=== PATIENT | female | born 1935 | race Caucasian/White ===

== ENCOUNTER 2017-11-20 05:48 | Day surgery (SDC) | payer MEDICARE ==
[2017-11-20] MEDS ORDERED: DIPRIVAN 200 MG/20 ML IV ONE (05:49)
[2017-11-20] MEDS ORDERED: Ketamine HCl 50 MG/ML IJ ONE (05:49)
[2017-11-20] MEDS ORDERED: Sodium Chloride 0.9% 1000 ML 1,000 ML IV SCH (06:00)
[2017-11-20] MEDS ORDERED: Sodium Chloride 0.9% 1000 ML 1,000 ML ONE (06:11)
[2017-11-20] MEDS ORDERED: Lactated Ringers 1,000 ML IV SCH (06:30)
[2017-11-20 08:38] VITALS: BP 185/92; PULSE 75; O2SAT 98
--- NOTE | 2017-11-20 14:38 | OP ---
SURGERY DATE/TIME: 11/20/2017 0725 PREOPERATIVE DIAGNOSIS: Screening exam. POSTOPERATIVE DIAGNOSIS: Sigmoid diverticulosis otherwise normal colon. PROCEDURE: Colonoscopy. SURGEON: Dr. Ballesteros. ANESTHESIA: MAC. Medications given by anesthesia department. HISTORY: The patient is an 82 year-old white female presenting now for screening colonoscopy. She reports it has been 15 years since her previous examination and that she does have a family history of first degree relative with colon cancer. The patient was felt the need to have endoscopic evaluation. She was appraised of the risks of the procedure including the risk of perforation, phlebitis, untoward reaction to medication, bleeding and missed lesions. The patient verbalized her understanding and desired to have the procedure performed. DESCRIPTION OF PROCEDURE: The patient was given the medications by the anesthesia department. She had continuous pulse oximetry, ECG monitoring, intermittent blood pressure monitoring and tidal CO2 monitoring during the examination. She was placed in the left lateral decubitus position. A digital rectal examination was performed and revealed normal anal sphincter tone and no masses. The flexible Olympus pediatric colonoscope was used to intubate the rectum. A view of the colon was developed sequentially to the cecum. Upon insertion and withdrawal, including a retroflex view in the rectum, there was noted sigmoid diverticula. No other mucosal lesions were encountered. The scope was removed from the patient who tolerated the procedure well and was sent back to OP recovery in good condition. The prep was noted to be fair.
== END 2017-11-20 08:55 | disposition home or self-care (01) ==
LOC: SDC 05:48
PROVIDERS: ATTEND Family Medicine
PROC: 0DJD8ZZ Inspection of Lower Intestinal Tract, Via Natural or Artificial Opening Endoscopic (ICD-10-PCS; principal; 2017-11-20)
DX: Z12.11 Encounter for screening for malignant neoplasm of colon (principal); K57.30 Diverticulosis of large intestine without perforation or abscess without bleeding; I25.10 Atherosclerotic heart disease of native coronary artery without angina pectoris; E78.5 Hyperlipidemia, unspecified; Z79.899 Other long term (current) drug therapy
CPT/HCPCS: 99100; J2704

== ENCOUNTER 2018-10-12 15:31 | Emergency (ER) | payer MEDICARE ==
--- NOTE | 2018-10-12 16:31 | ERPHSYRPT ---
- History of Present Illness Time Seen by Provider: 10/12/18 16:15 Patient Subjective Stated Complaint: WAS GOING DOWN STEPS AND SLIPPED STRIKING LEFT LOWER LEG ON SOME ROCKS. Triage Nursing Assessment: TO ROOM PER W/C. SKIN W/D, COLOR NORMAL, RESP NONLABORED. LEFT LOWER ANTERIOR LEG HAS ABRASIONS WITH MINIMAL BLEEDING. AREA CLEANED WITH HIBICLENS AND STERILE WATER. Physician History: PATIENT WITH A HISTORY OF CORONARY ARTERY DISEASE, HYPERTENSION, SLIPPED DOWN 2 STEPS STRIKING FOREHEAD AGAINST GROUND, HAS NECK STIFFNESS, BRUSING AND ABRASIONS OVER LEFT MESSINA. DENIES LOSS OF CONSCIOUSNESS, NUMBNESS, TINGLING OR WEAKNESS IN EXTREMITIES IN EXTREMITIES. Occurred: just prior to arrival Reason for Fall: tripped Injuries/Pain Location: head, neck, lower extremity Loss of Consciousness: no loss of consciousness Quality: sharpness Severity of Pain-Max: moderate Severity of Pain-Current: moderate Modifying Factors: Improves With: nothing Associated Symptoms (Fall): denies symptoms Allergies/Adverse Reactions: No Known Drug Allergies Allergy (Verified 10/12/18 16:02) Home Medications: Acetaminophen [Tylenol] 325 mg PO UD 11/15/17 [History] Aspirin 81 mg PO DAILY 11/15/17 [History] Famotidine 20 mg [Pepcid 20 MG] 20 mg PO DAILY 11/15/17 [History] Fexofenadine HCl [Frances] 180 mg PO DAILY 11/15/17 [History] Meclizine HCl 25 mg [Antivert 25 mg] 25 mg PO UD 11/15/17 [History] Metoprolol Succinate 25 mg PO HS 11/15/17 [History] Nitroglycerin 1 ea PO UD 11/15/17 [History] [place]-3 Fatty Acids/Fish Oil [Fish Oil 1,000 mg Capsule] 1 each PO DAILY [History] Simvastatin 40 mg [Zocor 40 mg] 40 mg PO HS 11/15/17 [History] Ergocalciferol (Vitamin D2) [Vitamin D] 50,000 unit PO UD 10/12/18 [History] Hx Tetanus, Diphtheria Vaccination/Date Given: No Hx Influenza Vaccination/Date Given: Yes Hx Pneumococcal Vaccination/Date Given: Yes - Review of Systems Constitutional: No Fever, No Chills Eyes: No Symptoms Ears, Nose, & Throat: No Symptoms Respiratory: No Symptoms, No Cough, No Dyspnea Cardiac: No Symptoms, No Chest Pain, No Edema, No Syncope Abdominal/Gastrointestinal: No Symptoms, No Abdominal Pain, No Nausea, No Vomiting, No Diarrhea Genitourinary Symptoms: No Symptoms, No Dysuria Musculoskeletal: Injury, No Back Pain, No Neck Pain Skin: No Rash Neurological: Headache, No Dizziness, No Focal Weakness, No Sensory Changes Psychological: No Symptoms Endocrine: No Symptoms All Other Systems: Reviewed and Negative - Past Medical History Pertinent Past Medical History: Yes Neurological History: No Pertinent History ENT History: No Pertinent History Cardiac History: Coronary Artery Disease, High Cholesterol, Hypertension Respiratory History: Bronchitis, Other Endocrine Medical History: No Pertinent History Musculoskeletal History: Arthritis GI Medical History: GERD History: Renal Disease Psycho-Social History: Anxiety Female Reproductive Disorders: No Pertinent History Other Medical History: 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 hx: irregular heart rate. recent sinus drainage, hx allergies - Past Surgical History Past Surgical History: Yes Neuro Surgical History: No Pertinent History Cardiac: Cardiac Catheterization, Cardiac Stent Respiratory: No Pertinent History Gastrointestinal: Appendectomy, Cholecystectomy Genitourinary: No Pertinent History Musculoskeletal: No Pertinent History Female Surgical History: Dilation & Curettage Other Surgical History: lbil. eye surgery cataract removal w/ lens placed, facial lesion removed ( benign). 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 - Social History Smoking Status: Never smoker Exposure to second hand smoke: No Drug Use: none Patient Lives Alone: No - Female History Hx Now: No - Nursing Vital Signs Nursing Vital Signs: Initial Vital Signs Temperature 97.9 F 10/12/18 15:56 Pulse Rate 58 L 10/12/18 15:56 Respiratory Rate 16 10/12/18 15:56 Blood Pressure 176/88 10/12/18 15:56 O2 Sat by Pulse Oximetry 97 10/12/18 15:56 Pain Scale Pain Intensity 2 - [place] Coma Score Best Eye Response (Antoni): (4) open spontaneously Best Verbal Response (Antoni): (5) oriented Best Motor Response (Antoni): (6) obeys commands Antoni Total: 15 - Physical Exam General Appearance: no apparent distress, alert, other (RIGID CERVICAL COLLAR APPLIED UPON ARRIVAL) Head Injury: tenderness (MID FOREHEAD, MININAL SWELLING) Eye Exam: PERRL/EOMI ENT Exam: airway nml Neck Exam: normal inspection, tenderness (POSTERIOR CERVICAL ) Respiratory/Chest Exam: normal breath sounds, No chest tenderness, No respiratory distress Cardiovascular Exam: normal heart sounds, regular rate/rhythm Gastrointestinal Exam: soft, No tenderness, No distention, No guarding, No ecchymosis Back Exam: normal inspection, No vertebral tenderness Extremity Exam: normal range of motion, pelvis stable, swelling (WITH ECCHYMOSIS PROXIMAL TO DISTAL 3RD MESSINA WITH SUPERFICIAL LACERATION 2.5 CM PROXIMAL ASPECT, ABRASIONS MIDLINE, NO CREPITUS. FULL RANGE OF MOTION LEFT KNEE AND ANKLE, NONTENDER, NO SWELLING. FULL RANGE OF MOTION BILAT HIPS WITHOUT PAIN.), No deformities Peripheral Pulses: carotid (R): 2+, carotid (L): 2+, femoral (R): 2+, femoral (L ): 2+, dorsalis-pedis (R): 2+, dorsalis-pedis (L): 2+ Neurologic Exam: alert, oriented x 3, cooperative, sensation nml, No motor deficits Skin Exam: normal color, warm, dry SpO2 Interpretation: normal SpO2: 97 Procedures - Laceration/Wound Repair Left Other Wound Location: Left, lower leg Wound Length (cm): 2.5 Wound's Depth, Shape: linear, irregular Wound Explored: clean Irrigated: Yes Hibiclens Prep: Yes Anesthesia: local, 2% Lidocaine Volume Anesthetic (ccs): 5 Wound Debrided: minimal Wound Repaired With: sutures Suture Size/Type: 4-0, ethilon Number of Sutures: 5 Sterile Dressing Applied?: Yes Ordered Tests: Active Orders 24 hr Category Date Time Status Cervical Collar Application STAT Care 10/12/18 16:31 Active CERVICAL SPINE WO CONTRAST [CT] Stat Exams 10/12/18 16:14 Taken HEAD WITHOUT CONTRAST [CT] Stat Exams 10/12/18 16:15 Taken LOWER LEG Stat Exams 10/12/18 16:16 Taken Medication Summary Discontinued Medications Generic Name Dose Route Start Last Admin Trade Name Freq PRN Reason Stop Dose Admin Hydrocodone Bitart/Acetaminophen 1 tab 10/12/18 16:47 10/12/18 16:52 [place] 5/325 Mg PO 10/12/18 16:48 1 tab STAT ONE Administration Hydrocodone Bitart/Acetaminophen Confirm 10/12/18 16:51 [place] 5/325 Mg Administered 10/12/18 16:52 Dose 1 tab .ROUTE .STK-MED ONE Clonidine Confirm 10/12/18 18:06 [place] 0.1 Mg Administered 10/12/18 18:07 Dose 0.1 mg .ROUTE .STK-MED ONE Clonidine 0.1 mg 10/12/18 18:10 10/12/18 18:11 [place] 0.1 Mg PO 10/12/18 18:11 0.1 mg STAT ONE Administration Diphtheria/Tetanus/Acell Pertussis 0.5 ml 10/12/18 17:51 10/12/18 17:55 Adacel Vial IM 10/12/18 17:52 0.5 ml .ONCE ONE Administration Diphtheria/Tetanus/Acell Pertussis Confirm 10/12/18 17:52 Adacel Vial Administered 10/12/18 17:53 Dose 0.5 ml IM .STK-MED ONE - Progress Progress Note: 10/12/18 17:47 [place] 5/325 ORALLY Counseled pt/family regarding: diagnosis, need for follow-up - Departure Time of Disposition: 18:50 Departure Disposition: Home Clinical Impression: FOREHEAD CONTUSION, CERVICAL STRAIN, LEFT MESSINA LACERATION/CONTUSIONS, HYPERTENSION Condition: Stable Critical Care Time: No Referrals: NATIVIDAD THURSTON [Primary Care Provider] - Additional Instructions: [place] 5/325 EVERY 8 HOURS FOR PAIN NEEDED. ELEVATE FOOT HIGHER THAN WAIST AND APPLY ICE OVER MESSINA SWELLING EVERY 4 HOURS, 30 MINUTES FOR 48 HOURS. BEGIN ANTIBIOTIC LEVAQUIN 500MG AFTER FINISHING PRESENT ANTIBIOTIC. HAVE STITCHES REMOVED AT 10 DAYS. WATCH FOR SIGNS OR INFECTION, REDNESS, SWELLING OR DRAINAGE. CLEANSE WOUNDS WITH SOAP AND WATER TWICE DAILY. NORVASC 5 MG DAILY EACH MORNING. TAKE ADDITIONAL DOSE OF NORVASC TONIGHT WITH METOPROLOL, AND CONSULT YOUR PRIMARY CARE PROVIDE FOR EVALUATION OF YOUR BLOOD PRESSURE. Prescriptions: Hydrocodone/APAP 5-325 Tab^^^ [[place] 5-325 Tablet^^^] 1 tab PO Q8HPRN PRN #8 tablet MDD 6 PRN Reason: Pain Amlodipine Besylate 5 mg [Norvasc 5 mg] 5 mg PO DAILY #30 tablet Levofloxacin [Levaquin] 500 mg PO DAILY #10 tablet
[2018-10-12] MEDS ORDERED: NORCO 5/325 MG PO ONE (16:47)
[2018-10-12] MEDS ORDERED: NORCO 5/325 MG ONE (16:51)
[2018-10-12] MEDS ORDERED: Adacel Vial IM ONE ×2 (17:51→17:52)
[2018-10-12] MEDS ORDERED: Catapres 0.1 MG ONE (18:06)
[2018-10-12] MEDS ORDERED: Catapres 0.1 MG PO ONE (18:10)
[2018-10-12 18:44] VITALS: BP 179/78; PULSE 58
[2018-10-12 18:47] VITALS: O2SAT 97
--- NOTE | 2018-10-12 22:34 | XRAY ---
Indication: Pain following fall. Right neck pain. Multiple contiguous axial images obtained through the head without contrast. Comparison: May 15, 2016. Stable age-appropriate global atrophy and mild periventricular degenerative micro-ischemia bilaterally. No acute intracranial hemorrhage, abnormal extra-axial fluid collection, or mass effect. Fourth ventricle is midline without hydrocephalus. Bony calvarium intact. There is mild mucosal thickening of both ethmoid and sphenoid sinuses. Mastoid air cells are clear. Impression: Stable nonacute senile brain. Incidental paranasal sinus disease. CTDI 52.08
--- NOTE | 2018-10-12 22:35 | XRAY ---
Indication: Pain following fall. Right neck pain. Multiple contiguous axial images obtained through the cervical spine. Sagittal and coronal reformatted images obtained. Comparison: None. Axial images negative for acute fracture, suspicious bony lesions, or spinal canal stenosis. Mild/moderate C4-C7 degenerative endplate spurring. Also multilevel bilateral degenerative facet hypertrophy. Sagittal and coronal reformatted images demonstrates normal alignment with C4-C7 disc space narrowing. No acute compression fracture, subluxation, or jumped facet. Normal appearing craniocervical junction. Visualized noncontrasted soft tissues including lung apices unremarkable. Impression: Negative acute fracture/subluxation. Multilevel degenerative changes. CTDI 55.16
--- NOTE | 2018-10-12 22:48 | XRAY ---
Indication: Bruising and swelling following fall. Comparison: None 2 views of the left lower leg negative for acute fracture, dislocation, or suspicious bony lesions. Soft tissues unremarkable.
== END 2018-10-12 18:57 | disposition home or self-care (01) ==
LOC: ED 15:31
DX: S00.93XA Contusion of unspecified part of head, initial encounter (principal); S16.1XXA Strain of muscle, fascia and tendon at neck level, initial encounter; S80.12XA Contusion of left lower leg, initial encounter; S81.812A Laceration without foreign body, left lower leg, initial encounter; I25.10 Atherosclerotic heart disease of native coronary artery without angina pectoris; I10 Essential (primary) hypertension; M43.6 Torticollis; Z79.899 Other long term (current) drug therapy; W10.8XXA Fall (on) (from) other stairs and steps, initial encounter
CPT/HCPCS: 12001; 70450; 72125; 73590; 90471; 90715; 99284; A9270-GY

== ENCOUNTER 2021-07-03 22:46 | Emergency (ER) | payer MEDICARE ==
[2021-07-03] MEDS ORDERED: Sodium Chloride 0.9% 1000 ML 1,000 ML IV SCH (23:30)
[2021-07-03] MEDS ORDERED: Sodium Chloride 0.9% 1000 ML 1,000 ML ONE (23:37)
[2021-07-03 23:39] LABS: Absolute Neutrophil Ct (ANC) 3.37 (1.4-6.9); BASOPHIL % 0.1 % (0.0-0.4); Basophil (Absolute #) 0.01 (0-0.4); Eosinophil % 2.4 % (0.00-5.0); Eosinophil (Absolute #) 0.17 (0-0.5); Hematocrit 40.8 % (35-47); Lymphocyte (Absolute #) 2.88 (1.0-4.6); Lymphocytes % 40.8 % (24.0-44.0); Mean Cell Volume 93.6 fl (78-100); Mean Corpuscular Hemoglobin 29.8 pg (26-32); Mean Corpuscular Hgb Concent. 31.9 g/dl (32-36); Mean Platelet Volume 9.8 fl (7.5-11.0); Monocyte (Absolute #) 0.63 (0.0-1.3); Monocytes % 8.9 % (0.0-12.0); Neutrophil % 47.8 % (36.0-66.0); Platelet Count 270 K/mm3 (150-450); Red Blood Count 4.36 M/mm3 (4.1-5.4); Red Cell Distribution Width 13.7 % (11.5-14.0); White Blood Count 7.1 K/mm3 (4.0-10.5)
[2021-07-03 23:44] LABS: ALBUMIN 4.2 g/dL (3.5-5.0); ANION GAP 14.8 MEQ/L (5-15); BILIRUBIN,TOTAL 0.6 mg/dL (0.2-1.3); EST GLOMERULAR FILTRATION RATE 56.3 ML/MIN; Potassium 3.7 mmol/L (3.5-5.1); Total Protein 7.4 g/dL (6.3-8.2)
--- NOTE | 2021-07-03 23:44 | ERPHSYRPT ---
- History of Present Illness Time Seen by Provider: 07/03/21 23:25 Historian: patient Exam Limitations: no limitations Patient Subjective Stated Complaint: pt states "I had this sharp pain in my stomach that made me get dizzy. But all my life I have had dizziness and passed out." Triage Nursing Assessment: pt came into the er via ambulance; pt is axo x4; c/o abd pain; pt denies pain at this time; pt states that she had severe pain in abd and back tonight; pt states that the pain was so severe that it made her dizzy; pt states that she has hx of lightheadness and dizziness; pt states she had diarrhea 2 days ago; pt denies BM today; pt states that "My daughter made me come in and get checked out."; hyperactive bowel sounds in all quads; tenderness to RLQ; abd is large, round, soft; pt denies vomiting; pt c/o nausea; pt states lower lumber pain; no tenderness to lumber with palpation; clear lung sounds in all lobes; pupils are 2 mm and sluggish; no facial droop present; sinus bradycardia on EKG; 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 The pain was in the epigastric area went through the back she was flushed and felt like she was febrile or burning up. She also became dizzy and felt like she was going to blackout although she did not lose consciousness. She has a long history of fr equent syncopal episodes apparently. Presently she is not dizzy nor is she having any abdominal pain. Timing/Duration: hour(s) (2) Activities at Onset: none Quality: burning, cramping, stabbing Abdominal Pain Onset Location: epigastric Pain Radiation: back Severity of Pain-Max: moderate Severity of Pain-Current: moderate Modifying Factors: Improves With: nothing Associated Symptoms: syncope (Near syncope) Previous symptoms: same symptoms as today Allergies/Adverse Reactions: No Known Drug Allergies Allergy (Verified 07/03/21 22:49) Home Medications: Acetaminophen [Tylenol] 325 mg PO UD 11/15/17 [History] Aspirin 81 mg PO DAILY 11/15/17 [History] Famotidine 20 mg [Pepcid 20 MG] 20 mg PO DAILY 11/15/17 [History] Fexofenadine HCl [Frances] 180 mg PO DAILY 11/15/17 [History] Meclizine HCl 25 mg [Antivert 25 mg] 25 mg PO UD 11/15/17 [History] Metoprolol Succinate 25 mg PO HS 11/15/17 [History] Nitroglycerin 1 ea PO UD 11/15/17 [History] [place]-3 Fatty Acids/Fish Oil [Fish Oil 1,000 mg Capsule] 1 each PO DAILY 11/15/17 [History] Simvastatin 40 mg [Zocor 40 mg] 40 mg PO HS 11/15/17 [History] Ergocalciferol (Vitamin D2) [Vitamin D] 50,000 unit PO UD 10/12/18 [History] Hx Tetanus, Diphtheria Vaccination/Date Given: No Hx Influenza Vaccination/Date Given: No Hx Pneumococcal Vaccination/Date Given: Yes Travel Risk - International Travel Have you traveled outside of the country in past 3 weeks: No - Coronavirus Screening Are you exhibiting any of the following symptoms?: No Close contact with a COVID-19 positive Pt in past 14-21 Days: No - Vaccine Status Have you recieved a Covid-19 vaccination: Yes 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: [employer] - Vaccination Dates Date of 2cond Vaccination (if applicable): 11/15 - Review of Systems Constitutional: No Fever, No Chills Eyes: No Symptoms Ears, Nose, & Throat: No Symptoms Respiratory: No Cough, No Dyspnea Cardiac: No Chest Pain, No Edema, No Syncope Abdominal/Gastrointestinal: Abdominal Pain, No Nausea, No Vomiting, No Diarrhea Genitourinary Symptoms: No Dysuria Musculoskeletal: No Back Pain, No Neck Pain Skin: No Rash Neurological: Vertigo, No Dizziness, No Focal Weakness, No Sensory Changes Psychological: No Symptoms Endocrine: No Symptoms All Other Systems: Reviewed and Negative - Past Medical History Pertinent Past Medical History: Yes Neurological History: No Pertinent History ENT History: No Pertinent History Cardiac History: Coronary Artery Disease, High Cholesterol, Hypertension Respiratory History: Bronchitis, Other Endocrine Medical History: No Pertinent History Musculoskeletal History: Arthritis GI Medical History: GERD History: Renal Disease Psycho-Social History: Anxiety Female Reproductive Disorders: No Pertinent History Other Medical History: 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 hx: irregular heart rate. recent sinus drainage, hx allergies - Past Surgical History Past Surgical History: Yes Neuro Surgical History: No Pertinent History Cardiac: Cardiac Catheterization, Cardiac Stent Respiratory: No Pertinent History Gastrointestinal: Appendectomy, Cholecystectomy Genitourinary: No Pertinent History Musculoskeletal: No Pertinent History Female Surgical History: Dilation & Curettage Other Surgical History: lbil. eye surgery cataract removal w/ lens placed, facial lesion removed ( benign). 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 - Social History Smoking Status: Never smoker Exposure to second hand smoke: Yes Drug Use: none Patient Lives Alone: Yes - Nursing Vital Signs Nursing Vital Signs: Initial Vital Signs Temperature 97.7 F 07/03/21 23:08 Pulse Rate 55 L 07/03/21 23:08 Respiratory Rate 20 07/03/21 23:08 O2 Sat by Pulse Oximetry 97 07/03/21 23:08 Pain Scale Pain Intensity 0 - Physical Exam General Appearance: no apparent distress, alert Eye Exam: PERRL/EOMI, eyes nml inspection Ears, Nose, Throat Exam: normal ENT inspection, pharynx normal, moist mucous membranes Neck Exam: normal inspection, non-tender, supple, full range of motion Respiratory Exam: normal breath sounds, lungs clear, No respiratory distress Cardiovascular Exam: regular rate/rhythm, normal heart sounds Gastrointestinal/Abdomen Exam: soft, No tenderness, No mass Back Exam: normal inspection, normal range of motion, No CVA tenderness, No vertebral tenderness Extremity Exam: normal inspection, normal range of motion, pelvis stable Neurologic Exam: alert, oriented x 3, cooperative, normal mood/affect, nml cerebellar function, sensation nml, No motor deficits Skin Exam: normal color, warm, dry SpO2: 97 - Course EKG Interpreted by Me: RATE (47), Sinus Michael, NORMAL AXIS, NORMAL INTERVALS, NORMAL QRS, NORMAL ST-T - CT Exams Abdomen/Pelvis CT Interpretation: Tele-radiologist Report Head CT Interpretation: Tele-radiologist Report Ordered Tests: Active Orders 24 hr Category Date Time Status EKG-ER Only STAT Care 07/03/21 23:28 Active IV Insertion STAT Care 07/03/21 23:28 Active ABDOMEN AND PELVIS W/0 CONTRAS [CT] Stat Exams 07/03/21 23:29 Taken CHEST 1 VIEW (PORTABLE) Stat Exams 07/03/21 23:29 Taken HEAD WITHOUT CONTRAST [CT] Stat Exams 07/03/21 23:31 Taken AMYLASE Stat Lab 07/03/21 23:15 Completed CBC W DIFF Stat Lab 07/03/21 23:15 Completed CMP Stat Lab 07/03/21 23:15 Completed CULTURE,URINE Stat Lab 07/03/21 23:55 Received LIPASE Stat Lab 07/03/21 23:15 Completed Lactic Acid Stat Lab 07/03/21 23:28 Completed TROPONIN Q3H Lab 07/03/21 23:15 Completed TROPONIN Q3H Lab 07/04/21 01:20 Received TROPONIN Q3H Lab 07/04/21 04:30 Ordered TROPONIN Q3H Lab 07/04/21 07:30 Ordered TROPONIN Q3H Lab 07/04/21 10:30 Ordered UA W/RFX UR CULTURE Stat Lab 07/03/21 23:55 Completed Medication Summary Generic Name Dose Route Start Last Admin Trade Name Freq PRN Reason Stop Dose Admin Sodium Chloride 1,000 mls @ 100 mls/hr 07/03/21 23:30 07/03/21 23:38 Sodium Chloride 0.9% 1000 Ml IV 08/02/21 23:29 100 mls/hr .Q10H HAO Administration Lab/Rad Data: Laboratory Result Diagrams 07/03/21 23:15 07/03/21 23:15 Laboratory Results 07/04/21 07/03/21 07/03/21 Range/Units 00:04 23:55 23:15 WBC (4.0-10.5) K/mm3 RBC (4.1-5.4) M/mm3 Hgb (12.0-16.0) gm/dl Hct (35-47) % MCV (78-100) fl MCH (26-32) pg MCHC (32-36) g/dl RDW (11.5-14.0) % Plt Count (150-450) K/mm3 MPV (7.5-11.0) fl Gran % (36.0-66.0) % Eos # (Auto) (0-0.5) Absolute Lymphs (auto) (1.0-4.6) Absolute Monos (auto) (0.0-1.3) Lymphocytes % (24.0-44.0) % Monocytes % (0.0-12.0) % Eosinophils % (0.00-5.0) % Basophils % (0.0-0.4) % Absolute Granulocytes (1.4-6.9) Basophils # (0-0.4) Sodium (137-145) mmol/L Potassium (3.5-5.1) mmol/L Chloride (98-107) mmol/L Carbon Dioxide (22-30) mmol/L Anion Gap (5-15) MEQ/L BUN (7-17) mg/dL Creatinine (0.52-1.04) mg/dL Estimated GFR ML/MIN Glucose (74-106) mg/dL Lactic Acid 2.2 H (0.4-2.0) Calcium (8.4-10.2) mg/dL Total Bilirubin (0.2-1.3) mg/dL AST (14-36) U/L ALT (0-35) U/L Alkaline Phosphatase (38-126) U/L Troponin I < 0.012 (0.000-0.034) ng/mL Serum Total Protein (6.3-8.2) g/dL Albumin (3.5-5.0) g/dL Amylase (30-110) U/L Lipase (23-300) U/L Urine Color YELLOW (YELLOW) Urine Appearance SLIGHTLY CLOUDY (CLEAR) Urine pH 5.0 (5-6) Ur Specific [place] 1.013 (1.005-1.025) Urine Protein NEGATIVE (Negative) Urine Ketones NEGATIVE (NEGATIVE) Urine Blood SMALL (0-5) Daniel/ul Urine Nitrite NEGATIVE (NEGATIVE) Urine Bilirubin NEGATIVE (NEGATIVE) Urine Urobilinogen NEGATIVE (0-1) mg/dL Ur Leukocyte Esterase TRACE (NEGATIVE) Urine WBC (Auto) 11-15 (0-5) /HPF Urine RBC (Auto) 3-5 (0-2) /HPF U Epithel Cells (Auto) MODERATE (FEW) /HPF Urine Bacteria (Auto) RARE (NEGATIVE) /HPF Urine Mucus (Auto) SLIGHT (NEGATIVE) /HPF Urine Culture Reflexed YES (NO) Urine Glucose NEGATIVE (NEGATIVE) mg/dL 07/03/21 07/03/21 Range/Units 23:15 23:15 WBC 7.1 (4.0-10.5) K/mm3 RBC 4.36 (4.1-5.4) M/mm3 Hgb 13.0 (12.0-16.0) gm/dl Hct 40.8 (35-47) % MCV 93.6 (78-100) fl MCH 29.8 (26-32) pg MCHC 31.9 L (32-36) g/dl RDW 13.7 (11.5-14.0) % Plt Count 270 (150-450) K/mm3 MPV 9.8 (7.5-11.0) fl Gran % 47.8 (36.0-66.0) % Eos # (Auto) 0.17 (0-0.5) Absolute Lymphs (auto) 2.88 (1.0-4.6) Absolute Monos (auto) 0.63 (0.0-1.3) Lymphocytes % 40.8 (24.0-44.0) % Monocytes % 8.9 (0.0-12.0) % Eosinophils % 2.4 (0.00-5.0) % Basophils % 0.1 (0.0-0.4) % Absolute Granulocytes 3.37 (1.4-6.9) Basophils # 0.01 (0-0.4) Sodium 138 (137-145) mmol/L Potassium 3.7 (3.5-5.1) mmol/L Chloride 104 (98-107) mmol/L Carbon Dioxide 24 (22-30) mmol/L Anion Gap 14.8 (5-15) MEQ/L BUN 15 (7-17) mg/dL Creatinine 1.00 (0.52-1.04) mg/dL Estimated GFR 56.3 ML/MIN Glucose 117 H (74-106) mg/dL Lactic Acid (0.4-2.0) Calcium 10.0 (8.4-10.2) mg/dL Total Bilirubin 0.60 (0.2-1.3) mg/dL AST 24 (14-36) U/L ALT 15 (0-35) U/L Alkaline Phosphatase 77 (38-126) U/L Troponin I (0.000-0.034) ng/mL Serum Total Protein 7.4 (6.3-8.2) g/dL Albumin 4.2 (3.5-5.0) g/dL Amylase 49 (30-110) U/L Lipase 76 (23-300) U/L Urine Color (YELLOW) Urine Appearance (CLEAR) Urine pH (5-6) Ur Specific [place] (1.005-1.025) Urine Protein (Negative) Urine Ketones (NEGATIVE) Urine Blood (0-5) Daniel/ul Urine Nitrite (NEGATIVE) Urine Bilirubin (NEGATIVE) Urine Urobilinogen (0-1) mg/dL Ur Leukocyte Esterase (NEGATIVE) Urine WBC (Auto) (0-5) /HPF Urine RBC (Auto) (0-2) /HPF U Epithel Cells (Auto) (FEW) /HPF Urine Bacteria (Auto) (NEGATIVE) /HPF Urine Mucus (Auto) (NEGATIVE) /HPF Urine Culture Reflexed (NO) Urine Glucose (NEGATIVE) mg/dL - Progress Progress: improved - Departure Departure Disposition: Home Clinical Impression: Urinary tract infection Condition: Good Critical Care Time: No Referrals: NATIVIDAD THURSTON [Primary Care Provider] - Follow up/PCP as directed Instructions: Urinary Tract Infection, Adult (DC) Prescriptions: Cephalexin Mh 500 mg [Keflex 500 mg] 500 mg PO TID #21 cap
[2021-07-04 00:25] LABS: Appearance SLIGHTLY CLOUDY (CLEAR); Bacteria RARE /HPF (NEGATIVE); Bilirubin NEGATIVE (NEGATIVE); Blood SMALL Ery/ul (0-5); Epithelial Cells MODERATE /HPF (FEW); Glucose NEGATIVE (NEGATIVE); Ketones NEGATIVE (NEGATIVE); Leukocyte Esterase TRACE (NEGATIVE); Mucus SLIGHT /HPF (NEGATIVE); Nitrite NEGATIVE (NEGATIVE); Protein,Urine Dip NEGATIVE (Negative); Specific Gravity 1.013 (1.005-1.025); Urobilinogen NEGATIVE mg/dL (0-1)
[2021-07-04] MEDS ORDERED: ROCEPHIN 1 Gm-D5w 50 ml Bag** 1 G/50 ML IVPB IV STA (01:34)
[2021-07-04] MEDS ORDERED: ROCEPHIN 1 Gm-D5w 50 ml Bag** 1 G/50 ML IVPB IV ONE (01:36)
--- NOTE | 2021-07-04 08:22 | XRAY ---
Indication: Syncope and dizziness. Multiple contiguous axial images obtained through the head without contrast. Comparison: October 12, 2018 Age-appropriate global atrophy and mild periventricular degenerative micro-ischemia bilaterally. No acute intracranial hemorrhage, abnormal extra-axial fluid collection, or mass effect. Fourth ventricle is midline without hydrocephalus. Bony calvarium intact. Visualized paranasal sinuses and mastoid air cells are clear. Impression: Continued nonacute senile brain. Comment: Preliminary interpretation made by [facility]. No critical discrepancy.
--- NOTE | 2021-07-04 08:28 | XRAY ---
Indication: Abdomen pain and nausea. Multiple contiguous axial images obtained through the abdomen and pelvis without contrast. Comparison: None Lung bases demonstrates mild bibasilar subsegmental atelectasis/scarring and tiny right lower lobe calcified granuloma. No infiltrate or effusion. Heart not enlarged. Small hiatal hernia. Noncontrasted stomach and bowel loops appear nonobstructed. There is mild diffuse scattered colonic fecal debris throughout. Mild sigmoid diverticulosis without diverticulitis. Appendectomy and cholecystectomy reported. Urinary bladder demonstrates tiny intraluminal air bubble either iatrogenic from recent catheterization versus gas-forming bacterial infection. Incidental chunky uterine calcified fibroid and tiny calcified splenic granulomas. No free fluid/air. Remaining liver, pancreas, spleen, adrenal glands, kidneys, ureters, bladder, and uterus appear unremarkable for noncontrast exam. Mild scattered aortoiliac calcifications without AAA. Osseous structures intact with mild osteopenia and mild degenerative changes throughout the thoracolumbar spine. Impression: 1. Urinary bladder intraluminal air bubble either iatrogenic versus gas-forming bacterial infection. 2. Mild diffuse fecal stasis. 3. Incidental sigmoid diverticulosis, uterine calcified fibroid, chronic bony findings, and old granulomatous disease. Comment: Preliminary interpretation made by [facility] who does not report incidental urinary bladder air bubble.
--- NOTE | 2021-07-04 08:30 | XRAY ---
Indication: Upper abdomen pain. Comparison: September 25, 2018. Portable apical lordotic chest remains hyperinflated with tiny medial right base calcified granuloma. Remaining heart and lungs unremarkable. Bony thorax intact again with mild osteopenia and degenerative changes. No new/acute findings.
== END 2021-07-04 01:20 | disposition home or self-care (01) ==
LOC: ED 22:46
DX: N39.0 Urinary tract infection, site not specified (principal); Z79.899 Other long term (current) drug therapy; I10 Essential (primary) hypertension; E78.00 Pure hypercholesterolemia, unspecified; R42 Dizziness and giddiness; I25.10 Atherosclerotic heart disease of native coronary artery without angina pectoris; R10.13 Epigastric pain
CPT/HCPCS: 36000; 36415; 70450; 71045; 74176; 80053; 81001; 82150; 83605; 83690; 84484; 85025; 87077; 87086; 87186; 93005; 99284; J0696

== ENCOUNTER 2023-07-25 16:18 | Emergency (ER) | payer MEDICARE ==
[2023-07-25 16:25] VITALS: TEMP 97.3
[2023-07-25] MEDS ORDERED: Sodium Chloride 0.9% 1000 ML 1,000 ML IV SCH (16:45)
[2023-07-25] MEDS ORDERED: Sodium Chloride 0.9% 1000 ML 1,000 ML ONE (16:52)
[2023-07-25 17:19] LABS: Absolute Neutrophil Ct (ANC) 3.43 x10^3/uL (1.4-6.9); BASOPHIL % 0.8 % (0.0-0.4); Basophil (Absolute #) 0.05 x10^3/uL (0-0.4); Eosinophil (Absolute #) 0.25 x10^3/uL (0-0.5); Hematocrit 35.2 % (35-47); Hemoglobin 11.1 g/dL (12.0-16.0); IMMATURE GRAN # 0.02 x10^3u/L (0.00-0.03); IMMATURE GRAN % 0.3 % (0.00-0.4); Lymphocyte (Absolute #) 1.93 x10^3/uL (1.0-4.6); Lymphocytes % 31.1 % (24.0-44.0); Mean Cell Volume 97.2 fL (78-100); Mean Corpuscular Hemoglobin 30.7 pg (26-32); Mean Corpuscular Hgb Concent. 31.5 g/dL (32-36); Mean Platelet Volume 9.4 fL (7.5-11.0); Monocyte (Absolute #) 0.52 x10^3/uL (0.0-1.3); Monocytes % 8.4 % (0.0-12.0); Neutrophil % 55.4 % (36.0-66.0); Platelet Count 265 x10^3/uL (150-450); Red Blood Count 3.62 x10^6/uL (4.1-5.4); Red Cell Distribution Width 13.6 % (11.5-14.0); White Blood Count 6.2 x10^3/uL (4.0-10.5)
[2023-07-25 17:41] LABS: ALBUMIN 4.2 g/dL (3.5-5.0); ANION GAP 14.7 MEQ/L (5-15); BILIRUBIN,TOTAL 0.7 mg/dL (0.2-1.3); Calcium 9.3 mg/dL (8.4-10.2); Creatinine 1 1.56 mg/dL (0.52-1.04); EST GLOMERULAR FILTRATION RATE 32.2 ML/MIN; Potassium 3.9 mmol/L (3.5-5.1); Total Protein 7.8 g/dL (6.3-8.2)
--- NOTE | 2023-07-25 17:54 | XRAY ---
CLINICAL HISTORY:syncope COMPARISON:CT dated 07/03/2021. TECHNIQUE:Axial non-contrast CT scan of the brain was performed from the skull base to the high parietal region. Coronal and sagittal reconstructions were also obtained. FINDINGS: No intracerebral or extra axial hematoma. There are marked periventricular areas of low attenuation throughout the deep white matter. The ventricular system, cortical sulci and basal cisterns are prominent, consistent with senile changes. Osorio-white matter differentiation is maintained. No midline shifts or deformity. Normal CT appearance of the posterior fossa structures namely the cerebellar hemispheres, brainstem and cerebellar peduncles. The cerebellopontine angles are clear. The osseous structures in the skull base are unremarkable. Mild calcified intracranial atherosclerotic vessel disease. No definite calvarium fractures. The scanned paranasal sinuses are clear. Mild mucosal thickening in the right mastoid air cells. IMPRESSION: 1. No intracerebral or extra axial hematoma. 2. Age matched involutional changes and chronic microvascular ischemic changes of the periventricular white matter are noted. 3. No significant changes since the last study. 4. Early changes of a stroke may not be detected on a CT scan. If strong clinical suspicion of stroke then suggest MRI with diffusion-weighted imaging. [facility] ER was called at at 5:4 PM EST, 07/25/2023 and results were verbally communicated to Dr. Saenz. Electronically Signed by: Ashley العراقي MD. (07/25/2023 17:50:15 EST)
[2023-07-25 18:00] LABS: TROPONIN 0.045 ng/mL (0.000-0.034)
--- NOTE | 2023-07-25 18:04 | XRAY ---
CLINICAL HISTORY:pain COMPARISON:None. TECHNIQUE:A CT scan of the left hip was performed without IV contrast. Coronal and sagittal reconstructive images were obtained. FINDINGS: Reduced osseous mineralization. The left hip joint is normal. The hip joint reveals normal rounded contour. No evidence of articular collapse. The joint space is normal. No loose bodies. There is no evidence of joint effusion. No evidence of obvious fracture was noted at the present examination. No lytic or sclerotic bone lesions. Visualized uterus shows focal calcification likely calcified fibroid. Sigmoid diverticula are noted with no evident diverticulitis. IMPRESSION: 1. Reduced osseous mineralization. 2. Otherwise, unremarkable CT study for the left hip. Electronically Signed by: Ashley العراقي MD. (07/25/2023 17:59:45 EST)
[2023-07-25 19:28] LABS: ADD URINE CULTURE? NO (NO); Appearance Clear (Clear); Bacteria None Seen /HPF (None Seen); Bilirubin Negative (Negative); Blood Negative (Negative); Epithelial Cells Few /HPF (None Seen); Glucose, Urine Negative (Negative); Hyaline Casts NONE SEEN /LPF (0-2); Ketones Negative (Negative); Leukocyte Esterase Negative (Negative); Nitrite Negative (Negative); Ph 6.5 (4.6-8.0); Protein,Urine Dip Negative (Negative); RBC 0-2 /HPF (0-5); Specific Gravity <=1.005 (1.005-1.030); Urobilinogen 0.2 mg/dL (0.2); WBC 0-2 /HPF (0-5)
--- NOTE | 2023-07-25 20:59 | ERPHSYRPT ---
- History of Present Illness Time Seen by Provider: 07/25/23 16:30 Source: patient Exam Limitations: no limitations Patient Subjective Stated Complaint: Pt states "I was bagging up my groceries, got dizzy and then fell. My left hip hurts." Triage Nursing Assessment: Pt presented alert and oriented X 3, skin pwd. Pt able to speak in clear full sentences. pt resting comfortably on the bed at this time. Physician History: Patient is an 88-year-old female presents to the emergency department via EMS for evaluation of syncope and collapse. Patient states she was at a grocery store bagging her groceries. Patient began to feel dizzy then collapsed. Patient awoke on the floor. She does not remember the details regarding her syncopal episode. However upon awakening patient complained of left hip pain. Pain described as an ache that is localized. No radiation. No associated neck pain. Cervical spine cleared clinically. No obvious head trauma. Patient denies history of the same. The syncopal episode was not associated with chest pain. Patient otherwise feels well at this time. She voices no other comp laints or concerns at this time. Portions of this note were created with voice recognition technology. There may be grammatical, spelling, punctuation or sound alike errors Timing/Duration: today Severity: moderate Modifying Factors: Improves With: nothing Associated Symptoms: denies symptoms Allergies/Adverse Reactions: No Known Drug Allergies Allergy (Verified 07/03/21 22:49) Home Medications: Acetaminophen [Tylenol] 325 mg PO UD 11/15/17 [History] Aspirin 81 mg PO DAILY 11/15/17 [History] Famotidine 20 mg [Pepcid 20 MG] 20 mg PO DAILY 11/15/17 [History] Fexofenadine HCl [Frances] 180 mg PO DAILY 11/15/17 [History] Meclizine HCl 25 mg [Antivert 25 mg] 25 mg PO UD 11/15/17 [History] Metoprolol Succinate 25 mg PO HS 11/15/17 [History] Nitroglycerin 1 ea PO UD 11/15/17 [History] [place]-3 Fatty Acids/Fish Oil [Fish Oil 1,000 mg Capsule] 1 each PO DAILY 11/15/17 [History] Simvastatin 40 mg [Zocor 40 mg] 40 mg PO HS 11/15/17 [History] Ergocalciferol (Vitamin D2) [Vitamin D] 50,000 unit PO UD 10/12/18 [History] Hx Tetanus, Diphtheria Vaccination/Date Given: No Hx Influenza Vaccination/Date Given: No Hx Pneumococcal Vaccination/Date Given: Yes Immunizations Up to Date: No Travel Risk - International Travel Have you traveled outside of the country in past 3 weeks: No - Coronavirus Screening Are you exhibiting any of the following symptoms?: No Close contact with a COVID-19 positive Pt in past 14-21 Days: No - Vaccine Status Have you recieved a Covid-19 vaccination: Yes 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: [employer] - Vaccination Dates Date of 2cond Vaccination (if applicable): 11/15 - Review of Systems Constitutional: No Symptoms, No Fever, No Chills Eyes: No Symptoms Ears, Nose, & Throat: No Symptoms Respiratory: No Symptoms, No Cough, No Dyspnea Cardiac: No Symptoms, No Chest Pain, No Edema, No Syncope Abdominal/Gastrointestinal: No Symptoms, No Abdominal Pain, No Nausea, No Vomiting, No Diarrhea Genitourinary Symptoms: No Symptoms, No Dysuria Musculoskeletal: No Symptoms, No Back Pain, No Neck Pain Skin: No Symptoms, No Rash Neurological: No Symptoms, No Dizziness, No Focal Weakness, No Sensory Changes Psychological: No Symptoms Endocrine: No Symptoms Immunological/Allergic: No Symptoms All Other Systems: Reviewed and Negative - Past Medical History Pertinent Past Medical History: Yes Neurological History: No Pertinent History ENT History: No Pertinent History Cardiac History: Coronary Artery Disease, High Cholesterol, Hypertension Respiratory History: Bronchitis, Other Endocrine Medical History: No Pertinent History Musculoskeletal History: Arthritis GI Medical History: GERD History: Renal Disease Psycho-Social History: Anxiety Female Reproductive Disorders: No Pertinent History Other Medical History: 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 hx: irregular heart rate. recent sinus drainage, hx allergies - Past Surgical History Past Surgical History: Yes Neuro Surgical History: No Pertinent History Cardiac: Cardiac Catheterization, Cardiac Stent Respiratory: No Pertinent History Gastrointestinal: Appendectomy, Cholecystectomy Genitourinary: No Pertinent History Musculoskeletal: No Pertinent History Female Surgical History: Dilation & Curettage Other Surgical History: lbil. eye surgery cataract removal w/ lens placed, facial lesion removed ( benign). 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 - Social History Smoking Status: Never smoker Exposure to second hand smoke: Yes Drug Use: none Patient Lives Alone: Yes - Nursing Vital Signs Nursing Vital Signs: Initial Vital Signs Temperature 97.3 F 07/25/23 16:20 Pulse Rate 69 07/25/23 16:20 Respiratory Rate 20 07/25/23 16:20 Blood Pressure 168/88 07/25/23 16:20 O2 Sat by Pulse Oximetry 99 07/25/23 16:20 Pain Scale Pain Intensity 0 - Physical Exam General Appearance: no apparent distress, alert Eye Exam: PERRL/EOMI, eyes nml inspection Ears, Nose, Throat Exam: normal ENT inspection, TMs normal, pharynx normal, moist mucous membranes Neck Exam: normal inspection, non-tender, supple, full range of motion Respiratory Exam: normal breath sounds, lungs clear, No respiratory distress Cardiovascular Exam: regular rate/rhythm, normal heart sounds, normal peripheral pulses Gastrointestinal/Abdomen Exam: soft, normal bowel sounds, No tenderness, No mass Back Exam: normal inspection, normal range of motion, No CVA tenderness, No vertebral tenderness Extremity Exam: normal inspection, normal range of motion, pelvis stable Neurologic Exam: alert, oriented x 3, cooperative, normal mood/affect, nml cerebellar function, nml station & gait, sensation nml, No motor deficits Skin Exam: normal color, warm, dry, No rash Lymphatic Exam: No adenopathy SpO2 Interpretation: normal SpO2: 100 O2 Delivery: Room Air - Course Nursing assessment & vital signs reviewed: Yes EKG Interpreted by Me: RATE (71), Sinus Rhythm, NORMAL AXIS, NORMAL INTERVALS - CT Exams Lower Extremity CT Interpretation: Tele-radiologist Report (Left hip, reduced osseous mineralization. Otherwise unremarkable CT study for the left hip) Head CT Interpretation: Tele-radiologist Report (No acute intracranial process. Senile brain.) Ordered Tests: Active Orders 24 hr Category Date Time Status Electric Engine Mechanic STAT Care 07/25/23 16:32 Active EKG-ER Only STAT Care 07/25/23 16:31 Active Pulse Oximetry (ED) STAT Care 07/25/23 16:31 Active HEAD WITHOUT CONTRAST [CT] Stat Exams 07/25/23 16:32 Completed LOWER EXTREMITY WO CONTRAST [CT] Stat Exams 07/25/23 16:39 Completed CBC W DIFF Stat Lab 07/25/23 16:50 Completed CMP Stat Lab 07/25/23 16:50 Completed TROPONIN Q4H Lab 07/25/23 16:50 Completed TROPONIN Q4H Lab 07/25/23 20:43 Received TROPONIN Q4H Lab 07/26/23 00:45 Ordered UA W/RFX UR CULTURE Stat Lab 07/25/23 18:45 Completed Medication Summary Generic Name Dose Route Start Last Admin Trade Name Herbq PRN Reason Stop Dose Admin Sodium Chloride 1,000 mls @ 100 mls/hr 07/25/23 16:45 07/25/23 16:56 Sodium Chloride 0.9% 1000 Ml IV 08/24/23 16:44 100 mls/hr .Q10H HAO Administration Lab/Rad Data: Laboratory Result Diagrams 07/25/23 16:50 07/25/23 16:50 Laboratory Results 07/25/23 07/25/23 07/25/23 Range/Units 18:45 16:50 16:50 WBC 6.2 (4.0-10.5) x10^3/uL RBC 3.62 L (4.1-5.4) x10^6/uL Hgb 11.1 L (12.0-16.0) g/dL Hct 35.2 (35-47) % MCV 97.2 (78-100) fL MCH 30.7 (26-32) pg MCHC 31.5 L (32-36) g/dL RDW 13.6 (11.5-14.0) % Plt Count 265 (150-450) x10^3/uL MPV 9.4 (7.5-11.0) fL Gran % 55.4 (36.0-66.0) % Immature Gran % (Auto) 0.3 (0.00-0.4) % Nucleat RBC Rel Count 0.0 (0.00-0.1) % Eos # (Auto) 0.25 (0-0.5) x10^3/uL Immature Gran # (Auto) 0.02 (0.00-0.03) x10^3u/L Absolute Lymphs (auto) 1.93 (1.0-4.6) x10^3/uL Absolute Monos (auto) 0.52 (0.0-1.3) x10^3/uL Absolute Nucleated RBC 0.00 (0.00-0.01) x10^3u/L Lymphocytes % 31.1 (24.0-44.0) % Monocytes % 8.4 (0.0-12.0) % Eosinophils % 4.0 (0.00-5.0) % Basophils % 0.8 (0.0-0.4) % Absolute Granulocytes 3.43 (1.4-6.9) x10^3/uL Basophils # 0.05 (0-0.4) x10^3/uL Sodium 136 L (137-145) mmol/L Potassium 3.9 (3.5-5.1) mmol/L Chloride 108 H (98-107) mmol/L Carbon Dioxide 18 L (22-30) mmol/L Anion Gap 14.7 (5-15) MEQ/L BUN 21 H (7-17) mg/dL Creatinine 1.56 H (0.52-1.04) mg/dL Estimated GFR 32.2 ML/MIN Glucose 120 H (74-106) mg/dL Calcium 9.3 (8.4-10.2) mg/dL Total Bilirubin 0.70 (0.2-1.3) mg/dL AST 25 (14-36) U/L ALT 14 (0-35) U/L Alkaline Phosphatase 69 (38-126) U/L Troponin I 0.045 H* (0.000-0.034) ng/mL Serum Total Protein 7.8 (6.3-8.2) g/dL Albumin 4.2 (3.5-5.0) g/dL Urine Color Yellow (Yellow) Urine Appearance Clear (Clear) Urine pH 6.5 (4.6-8.0) Ur Specific Delia <=1.005 (1.005-1.030) Urine Protein Negative (Negative) Urine Glucose (UA) Negative (Negative) mg/dL Urine Ketones Negative (Negative) Urine Blood Negative (Negative) Urine Nitrite Negative (Negative) Urine Bilirubin Negative (Negative) Urine Urobilinogen 0.2 (0.2) mg/dL Ur Leukocyte Esterase Negative (Negative) U Hyaline Cast (Auto) NONE SEEN (0-2) /LPF Urine Microscopic RBC 0-2 (0-5) /HPF Urine Microscopic WBC 0-2 (0-5) /HPF Ur Epithelial Cells Few (None Seen) /HPF Urine Bacteria None Seen (None Seen) /HPF Urine Culture Reflexed NO (NO) - Progress Progress: improved Progress Note: In light of patient's elevated cardiac troponin, significant cardiac history, syncope and collapse we advised transfer to higher level of care with cardiology services. 88-year-old female presents to our ED via EMS status post syncope and collapse. Physical exam reveals some tenderness to palpation along the lateral aspect of her left hip. Patient states her left hip is sore. Physical exam otherwise unremarkable. 07/25/23 21:[address] Talavera ER physician at [facility] who accepts transfer at 9:[address] head negative for acute intracranial pathology. CT left hip negative for fracture dislocation. CBC such and unremarkable. CMP reveals an elevated BUN/creatinine of 21-1.56. However patient voices that this is her baseline. Initial troponin elevated at 0.045. Urinalysis negative. Complexity of problems addressed is moderate acute complicated No critical care time Complex of data reviewed and analyzed extensive. Test ordered test reviewed. Results analyzed and correlated clinically. Management discussed with Dr. Talavera hospitalist at [facility] who accepts transfer at 9:14 PM. Risk of complication and a risk morbidity/mortality of patient management is high. Patient requires hospitalization/transfer to higher level of care Vital stable. Time spent to discharge patient is approximately 15 minutes. Plan of care established for shared decision making. No social determinants of health present impede follow-up. Portions of this note were created with voice recognition technology. There may be grammatical, spelling, punctuation or sound alike errors 07/25/23 21:14 Discussed with : Other Counseled pt/family regarding: lab results, diagnosis - Departure Departure Disposition: Transfer Clinical Impression: Syncope and collapse, Elevated troponin, Left hip pain, Calcified uterine fibroid Condition: Stable Critical Care Time: No Referrals: NATIVIDAD THURSTON [Primary Care Provider] - Follow up/PCP as directed
[2023-07-25] MEDS ORDERED: BABY ASPIRIN 81 MG CHEW PO ONE (21:22)
[2023-07-25] MEDS ORDERED: BABY ASPIRIN 81 MG CHEW ONE (21:27)
[2023-07-25 23:23] VITALS: BP 148/87; PULSE 68; RESP 19; O2SAT 98
== END 2023-07-25 23:45 | disposition short-term general hospital (02) ==
LOC: ED 16:18
DX: R55 Syncope and collapse (principal); R77.8 Other specified abnormalities of plasma proteins; M25.552 Pain in left hip; D25.9 Leiomyoma of uterus, unspecified; E78.5 Hyperlipidemia, unspecified; I12.9 Hypertensive chronic kidney disease with stage 1 through stage 4 chronic kidney disease, or unspecified chronic kidney disease; N18.4 Chronic kidney disease, stage 4 (severe); Z79.899 Other long term (current) drug therapy
CPT/HCPCS: 36415; 70450; 73700; 80053; 81001; 84484; 85025; 93005; 93041; 94760; 99285; A9270-GY

== ENCOUNTER 2023-09-27 14:40 | Observation (INO) | payer MEDICARE ==
--- NOTE | 2023-09-27 15:08 | ERPHSYRPT ---
- History of Present Illness Time Seen by Provider: 09/27/23 15:07 Source: patient, family Exam Limitations: no limitations Physician History: This is an 88-year-old white female patient who had wrapped herself with a blanket at home and she tripped fell hitting her right shoulder on the edge of the couch. She did not hit her head and she has no head or neck complaints. She did not lose consciousness. Her pain is in the right shoulder area. Patient has a history of hypertension, hyperlipidemia and gastroesophageal reflux disease. Patient's primary care provider is Dr. Ballesteros. Occurred: just prior to arrival Reason for Fall: tripped Injuries/Pain Location: upper extremity (Right upper shoulder) Loss of Consciousness: no loss of consciousness Quality: aching, throbbing Severity of Pain-Max: moderate Severity of Pain-Current: moderate Modifying Factors: Improves With: movement Associated Symptoms (Fall): No abdominal pain, No back pain, No chest pain, No neck pain, No shortness of breath Allergies/Adverse Reactions: No Known Drug Allergies Allergy (Verified 09/27/23 15:07) Home Medications: Acetaminophen [Tylenol] 325 mg PO UD 11/15/17 [History] Aspirin 81 mg PO DAILY 11/15/17 [History] Famotidine 20 mg [Pepcid 20 MG] 20 mg PO DAILY 11/15/17 [History] Fexofenadine HCl [Frances] 180 mg PO DAILY 11/15/17 [History] Meclizine HCl 25 mg [Antivert 25 mg] 25 mg PO UD 11/15/17 [History] Metoprolol Succinate 25 mg PO HS 11/15/17 [History] Nitroglycerin 1 ea PO UD 11/15/17 [History] [place]-3 Fatty Acids/Fish Oil [Fish Oil 1,000 mg Capsule] 1 each PO DAILY 0 11/15/17 [History] Simvastatin 40 mg [Zocor 40 mg] 40 mg PO HS 11/15/17 [History] Ergocalciferol (Vitamin D2) [Vitamin D] 50,000 unit PO UD 10/12/18 [History] Hx Tetanus, Diphtheria Vaccination/Date Given: No Hx Influenza Vaccination/Date Given: No Hx Pneumococcal Vaccination/Date Given: Yes Travel Risk - International Travel Have you traveled outside of the country in past 3 weeks: No - Coronavirus Screening Are you exhibiting any of the following symptoms?: No Close contact with a COVID-19 positive Pt in past 14-21 Days: No - Vaccine Status Have you recieved a Covid-19 vaccination: Yes 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: [employer] - Vaccination Dates Date of 2cond Vaccination (if applicable): 11/15 - Review of Systems Constitutional: No Symptoms Eyes: No Symptoms Ears, Nose, & Throat: No Symptoms Respiratory: No Symptoms Cardiac: No Symptoms Abdominal/Gastrointestinal: No Symptoms Genitourinary Symptoms: No Symptoms Musculoskeletal: Fall, Injury, Joint Pain (Right shoulder right shoulder) Skin: No Symptoms Neurological: No Symptoms Psychological: No Symptoms Endocrine: No Symptoms Hematologic/Lymphatic: No Symptoms Immunological/Allergic: No Symptoms All Other Systems: Reviewed and Negative - Past Medical History Pertinent Past Medical History: Yes Neurological History: No Pertinent History ENT History: No Pertinent History Cardiac History: Coronary Artery Disease, High Cholesterol, Hypertension Respiratory History: Bronchitis, Other Endocrine Medical History: No Pertinent History Musculoskeletal History: Arthritis GI Medical History: GERD History: Renal Disease Psycho-Social History: Anxiety Female Reproductive Disorders: No Pertinent History Other Medical History: 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 hx: irregular heart rate. recent sinus drainage, hx allergies - Past Surgical History Past Surgical History: Yes Neuro Surgical History: No Pertinent History Cardiac: Cardiac Catheterization, Cardiac Stent Respiratory: No Pertinent History Gastrointestinal: Appendectomy, Cholecystectomy Genitourinary: No Pertinent History Musculoskeletal: No Pertinent History Female Surgical History: Dilation & Curettage Other Surgical History: lbil. eye surgery cataract removal w/ lens placed, facial lesion removed ( benign). 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 - Social History Smoking Status: Never smoker Exposure to second hand smoke: Yes Drug Use: none Patient Lives Alone: Yes - Nursing Vital Signs Nursing Vital Signs: Initial Vital Signs Temperature 98 F 09/27/23 15:08 Pulse Rate 62 09/27/23 15:08 Respiratory Rate 20 09/27/23 15:08 Blood Pressure 187/75 09/27/23 15:08 O2 Sat by Pulse Oximetry 100 09/27/23 15:08 Pain Scale Pain Intensity 8 - [place] Coma Score Best Eye Response (Antoni): (4) open spontaneously Best Verbal Response (Antoni): (5) oriented Best Motor Response ([place]coran): (6) obeys commands Antoni Total: 15 - Physical Exam General Appearance: mild distress, alert, anxiety Head Injury: no evidence of injury Eye Exam: PERRL/EOMI, eyes nml inspection ENT Exam: airway nml, nml ext.inspection Neck Exam: supple, trachea midline, full range of motion, normal alignment, normal inspection Respiratory/Chest Exam: normal breath sounds, No chest tenderness, No respiratory distress, No ecchymosis, No crepitus Cardiovascular Exam: normal heart sounds, regular rate/rhythm Gastrointestinal Exam: soft, normal bowel sounds, No tenderness Rectal Exam: not done Back Exam: normal inspection, normal range of motion, No CVA tenderness, No vert ebral tenderness Extremity Exam: deformities, limited range of motion (Right shoulder), pain with movement (Right shoulder), No pelvis stable (? Right shoulder), No motor def icit, No sensory deficit Neurologic Exam: alert, oriented x 3, cooperative, dean of boys II-XII nml as tested, nml cerebellar function, nml station & gait Skin Exam: normal color, warm, dry SpO2 Interpretation: normal O2 Delivery: Room Air - Course Nursing assessment & vital signs reviewed: Yes Ordered Tests: Active Orders 24 hr Category Date Time Status IV Insertion STAT Care 09/27/23 15:36 Active Oxygen-ED Only Nasal Cannula 2 lpm Care 09/27/23 16:19 Active Sling Application STAT Care 09/27/23 16:08 Active ANKLE (3 VIEWS) Stat Exams 09/27/23 17:20 Taken CLAVICLE Stat Exams 09/27/23 15:42 Completed HUMERUS Stat Exams 09/27/23 15:42 Completed SHOULDER Stat Exams 09/27/23 15:42 Completed UPPER EXTREMITY W/O CONTRAST [CT] Stat Exams 09/27/23 16:59 Taken BMP Stat Lab 09/27/23 15:40 Completed CBC W DIFF Stat Lab 09/27/23 15:40 Completed PROTIME WITH INR Stat Lab 09/27/23 15:40 Completed Medication Summary Discontinued Medications Generic Name Dose Route Start Last Admin Trade Name Freq PRN Reason Stop Dose Admin Lorazepam 0.5 mg 09/27/23 16:09 09/27/23 16:12 Lorazepam 2 Mg/1 Ml 2 Mg Vial IV 09/27/23 16:10 0.5 mg STAT ONE Administration Lorazepam Confirm 09/27/23 16:10 Lorazepam 2 Mg/1 Ml 2 Mg Vial Administered 09/27/23 16:11 Dose 2 mg .ROUTE .STK-MED ONE Morphine Sulfate Confirm 09/27/23 15:32 Morphine Sulfate 4 Mg/Ml Injection Administered 09/27/23 15:33 Dose 4 mg .ROUTE .STK-MED ONE Morphine Sulfate 4 mg 09/27/23 15:34 09/27/23 15:37 Morphine Sulfate 4 Mg/Ml Injection IV 09/27/23 15:35 4 mg STAT ONE Administration Morphine Sulfate 2 mg 09/27/23 16:08 09/27/23 16:12 Morphine Sulfate 2 Mg/Ml Inj IV 09/27/23 16:09 2 mg STAT ONE Administration Morphine Sulfate Confirm 09/27/23 16:11 Morphine Sulfate 2 Mg/Ml Inj Administered 09/27/23 16:12 Dose 2 mg .ROUTE .STK-MED ONE Ondansetron HCl Confirm 09/27/23 15:32 Ondansetron Hcl 4 Mg/2 Ml Vial Administered 09/27/23 15:33 Dose 4 mg .ROUTE .STK-MED ONE Ondansetron HCl 4 mg 09/27/23 15:34 09/27/23 15:37 Ondansetron Hcl 4 Mg/2 Ml Vial IV 09/27/23 15:35 4 mg STAT ONE Administration Lab/Rad Data: Laboratory Result Diagrams 09/27/23 15:40 09/27/23 15:40 Laboratory Results 09/27/23 09/27/23 09/27/23 Range/Units 15:40 15:40 15:40 WBC 7.6 (4.0-10.5) x10^3/uL RBC 3.69 L (4.1-5.4) x10^6/uL Hgb 11.0 L (12.0-16.0) g/dL Hct 35.0 (35-47) % MCV 94.9 (78-100) fL MCH 29.8 (26-32) pg MCHC 31.4 L (32-36) g/dL RDW 12.0 (11.5-14.0) % Plt Count 241 (150-450) x10^3/uL MPV 9.2 (7.5-11.0) fL Gran % 52.0 (36.0-66.0) % Immature Gran % (Auto) 0.3 (0.00-0.4) % Nucleat RBC Rel Count 0.0 (0.00-0.1) % Eos # (Auto) 0.26 (0-0.5) x10^3/uL Immature Gran # (Auto) 0.02 (0.00-0.03) x10^3u/L Absolute Lymphs (auto) 2.60 (1.0-4.6) x10^3/uL Absolute Monos (auto) 0.72 (0.0-1.3) x10^3/uL Absolute Nucleated RBC 0.00 (0.00-0.01) x10^3u/L Lymphocytes % 34.0 (24.0-44.0) % Monocytes % 9.4 (0.0-12.0) % Eosinophils % 3.4 (0.00-5.0) % Basophils % 0.9 (0.0-0.4) % Absolute Granulocytes 3.97 (1.4-6.9) x10^3/uL Basophils # 0.07 (0-0.4) x10^3/uL PT 9.9 (9.4-12.5) SECONDS INR 0.90 (0.8-3.0) Sodium 134 L (137-145) mmol/L Potassium 5.5 H (3.5-5.1) mmol/L Chloride 107 (98-107) mmol/L Carbon Dioxide 17 L (22-30) mmol/L Anion Gap 14.9 (5-15) MEQ/L BUN 30 H (7-17) mg/dL Creatinine 1.43 H (0.52-1.04) mg/dL Estimated GFR 35.7 ML/MIN Glucose 135 H (74-106) mg/dL Calcium 9.6 (8.4-10.2) mg/dL - Progress Progress: improved, pain not gone completely Progress Note: 09/27/23 16:16 This patient's medical issue is 1 of low to moderate complexity. The level of complexity in the workup performed is based on review of the patient's past medical history, review of the patient's medication list, review of the patient's drug allergy list, history present illness and physical findings on examination. The workup in this patient includes x-ray of the right clavicle, x-ray of the right shoulder, and x-ray of the right humerus. We will also place an intravenous line and provide the patient with pain medicine and obtain a CBC and a BMP as well as a PT/INR. 09/27/23 16:26 I just spoke with orthopedic surgeon Dr. Frankel. He is going to pull up the x- rays and view them himself and give us a call back. 09/27/23 16:34 The final reads of the right clavicle, right humerus and right shoulder x-rays were interpreted by the radiologist. I reviewed the impression. Right clavicle x-ray shows no clavicular fracture. However there is mildly displaced and comminuted humeral head/neck fracture with inferior humeral head subluxation. Right humerus x-ray shows mildly displaced and comminuted humeral head and neck fracture with inferior subluxation of the humeral head. Right shoulder x-ray shows new mildly displaced and comminuted humeral head neck fracture with inferior humeral head subluxation. 09/27/23 17:51 Dr. Frankel reviewed all films. he recommended sling, pain meds. ok to d/c to home and follow up ortho clinic tomorrow 09/28/23. Dr. Weiss to see her. per his request, I ordered ct right shoulder w/3d reconstruction(told lanny) pt reexamined. pain under better control. pt wants right ankle xrayed. I interpreted right ankle xray. no acute fx or dislocation Counseled pt/family regarding: lab results, diagnosis, rad results Medical Desision Making - Independent Historian Additional History obtained from: Family - Diagnostic Testing Diagnostic test were ordered, analyzed, and reviewed by me: Yes Radiological Interpretation: Interpreted by me, Reviewed by me, Teleradiologist Report - Risk of complications The pt has a mod risk of morbidity or mortality based on: Need for prescription drug management - Departure Departure Disposition: Home Clinical Impression: Fracture of humeral head, right, closed Condition: Stable Critical Care Time: No Referrals: NATIVIDAD BALLESTEROS [Primary Care Provider] - Follow up/PCP as directed Additional Instructions: Orthopedic clinic here at [facility] tomorrow 8am 09/28/23. wear sling for comfort Prescriptions: Oxycodone HCl/Acetaminophen [Percocet 5-325 mg Tablet] 1 each PO Q8H PRN PRN #6 tablet MDD 3 PRN Reason: Moderate To Severe Pain
[2023-09-27] MEDS ORDERED: MORPHINE SULFATE 4 MG INJ ONE (15:32)
[2023-09-27] MEDS ORDERED: Zofran 4 MG/2 ML VIAL ONE (15:32)
[2023-09-27] MEDS ORDERED: Zofran 4 MG/2 ML VIAL IV ONE (15:34)
[2023-09-27] MEDS ORDERED: MORPHINE SULFATE 4 MG INJ IV ONE (15:34)
[2023-09-27 15:50] LABS: Absolute Neutrophil Ct (ANC) 3.97 x10^3/uL (1.4-6.9); BASOPHIL % 0.9 % (0.0-0.4); Basophil (Absolute #) 0.07 x10^3/uL (0-0.4); Eosinophil % 3.4 % (0.00-5.0); Eosinophil (Absolute #) 0.26 x10^3/uL (0-0.5); IMMATURE GRAN # 0.02 x10^3u/L (0.00-0.03); IMMATURE GRAN % 0.3 % (0.00-0.4); Mean Cell Volume 94.9 fL (78-100); Mean Corpuscular Hemoglobin 29.8 pg (26-32); Mean Corpuscular Hgb Concent. 31.4 g/dL (32-36); Mean Platelet Volume 9.2 fL (7.5-11.0); Monocyte (Absolute #) 0.72 x10^3/uL (0.0-1.3); Monocytes % 9.4 % (0.0-12.0); Platelet Count 241 x10^3/uL (150-450); Red Blood Count 3.69 x10^6/uL (4.1-5.4); White Blood Count 7.6 x10^3/uL (4.0-10.5)
[2023-09-27 16:02] LABS: ANION GAP 14.9 MEQ/L (5-15); Calcium 9.6 mg/dL (8.4-10.2); Creatinine 1 1.43 mg/dL (0.52-1.04); EST GLOMERULAR FILTRATION RATE 35.7 ML/MIN; INR 0.9 (0.8-3.0); PROTIME 9.9 SECONDS (9.4-12.5)
[2023-09-27 16:06] LABS: Potassium 5.5 mmol/L (3.5-5.1)
[2023-09-27] MEDS ORDERED: MORPHINE SULFATE 2 MG INJ IV ONE ×2 (16:08→17:56)
[2023-09-27] MEDS ORDERED: Ativan 2 MG/1 ML VIAL IV ONE (16:09)
[2023-09-27] MEDS ORDERED: Ativan 2 MG/1 ML VIAL ONE (16:10)
[2023-09-27] MEDS ORDERED: MORPHINE SULFATE 2 MG INJ ONE ×2 (16:11→17:59)
--- NOTE | 2023-09-27 16:25 | XRAY ---
Indication: Pain following fall. Comparison: August 01, 2006 3 view right shoulder demonstrates new mildly displaced and comminuted humeral head/neck fracture. Also new inferior humeral head subluxation. Again osteopenia and mild AC degenerative arthropathy. No other bony, articular, or soft tissue abnormalities.
--- NOTE | 2023-09-27 16:25 | XRAY ---
Indication: Pain following fall. Comparison: None 2 view right humerus demonstrates mildly displaced and comminuted humeral head/neck fracture. Also inferior subluxation humeral head. Elsewhere osteopenia and mild AC degenerative arthropathy.
--- NOTE | 2023-09-27 16:27 | XRAY ---
Indication: Pain following fall. Comparison: None 2 view right clavicle demonstrates mildly displaced and comminuted humeral head/neck fracture with inferior humeral head subluxation. Elsewhere osteopenia and mild AC degenerative arthropathy.
[2023-09-27] MEDS ORDERED: Sodium Chloride 0.9% 1000 ML 1,000 ML ONE (18:35)
[2023-09-27] MEDS ORDERED: Sodium Chloride 0.9% 1000 ML 1,000 ML IV SCH (18:45)
[2023-09-27] MEDS ORDERED: EXPAREL 133 MG/10 ML VIAL IJ ONE (20:25)
[2023-09-27] MEDS ORDERED: Zofran 4 MG/2 ML VIAL IV PRN (20:33)
[2023-09-27] MEDS ORDERED: TYLENOL 325 MG PO PRN (20:33)
[2023-09-27] MEDS: Sodium Chloride 0.9% 1000 ML 1,000 ML IV SCH (21:33)
[2023-09-27 21:53] LABS: Appearance Clear (Clear); Bacteria Rare /HPF (None Seen); Bilirubin Negative (Negative); Blood Negative (Negative); Epithelial Cells Few /HPF (None Seen); Glucose, Urine Negative (Negative); Ketones Negative (Negative); Leukocyte Esterase Trace (Negative); Nitrite Negative (Negative); Ph 5.5 (4.6-8.0); Protein,Urine Dip Negative (Negative); RBC 0-2 /HPF (0-5); Specific Gravity 1.015 (1.005-1.030); Urobilinogen 0.2 mg/dL (0.2)
[2023-09-27 22:00] LABS: ADD URINE CULTURE? NO (NO)
[2023-09-27] MEDS ORDERED: Nitrostat 0.4 MG Tablet SL PRN (22:21)
--- NOTE | 2023-09-27 22:41 | PCM.HP ---
History of Present Illness - Chief Complaint Chief Complaint: right humeral head fx Date: 09/27/23 History of Present Illness: is a 88 year old female (with a history of hypertension, hyperlipidemia and gastroesophageal reflux disease) who fell at home with impact on her right shoulder. She had wrapped herself with a blanket at home and she tripped fell hitting her right shoulder on the edge of the couch. She did not hit her head and she has no head or neck complaints. She did not lose consciousness. She reported pain in the right shoulder area. Workup in the ED demonstrated a mildly displaced and comminuted humeral head and neck fracture with inferior subluxation of the humeral head. The ED contacted ortho crayon grader (Dr. Frankel) with a recommendation for sling use, analgesia, a ct right shoulder w/3d reconstruction, and a plan for discharge to home with ortho follow up in clinic tomorrow with Dr. Joseph Weiss. In the ED the patient had received a total of 6 mg (2mg x 3) IV morphine. However, the patient subsequently became clammy and dizzy with a near syncopal event. I was asked to admit the patient. At the time of my evaluation she is only reporting right shoulder discomfort. She denies chest pain, vision changes, numbness, weakness or current dizziness. - Review of Systems Constitutional: No Symptoms Eyes: No Symptoms Ears, Nose, & Throat: No Symptoms Respiratory: No Symptoms Cardiac: No Symptoms Abdominal/Gastrointestinal: No Symptoms Genitourinary Symptoms: No Symptoms Musculoskeletal: Fall, Injury, Joint Pain Skin: No Symptoms Neurological: Dizziness Psychological: No Symptoms Endocrine: No Symptoms Hematologic/Lymphatic: No Symptoms Medications & Allergies Home Medications: Home Medication List Aspirin 81 mg PO DAILY 11/15/17 [History Confirmed 09/27/23] Nitroglycerin 1 ea PO Q5MIN PRN MR X 3 PRN 11/15/17 [History Confirmed 09/27/23] Simvastatin 40 mg [Zocor 40 mg] 40 mg PO HS 11/15/17 [History Confirmed 09/27/23] Amlodipine Besylate [Norvasc] 1 tab PO DAILY 09/27/23 [History Confirmed 09/27/23] Hydroxyzine HCl 25 mg [Atarax 25 mg] 1 tab PO QID PRN 09/27/23 [History Confirmed 09/27/23] Levothyroxine Sodium 1 tab PO DAILY 09/27/23 [History Confirmed 09/27/23] Omeprazole 1 cap PO BID 09/27/23 [History Confirmed 09/27/23] Oxycodone HCl/Acetaminophen [Percocet 5-325 mg Tablet] 1 each PO Q8H PRN PRN #6 tablet MDD 3 09/27/23 [Rx] Triamterene/Hydrochlorothiazid [Maxzide 37.5 mg-25 mg Tablet] 1 tab PO DAILY 09/27/23 [History Confirmed 09/27/23] lisinopriL [Zestril] 1 tab PO DAILY 09/27/23 [History Confirmed 09/27/23] Allergies/Adverse Reactions: Allergies Allergy/AdvReac Type Severity Reaction Status Date / Time No Known Drug Allergies Allergy Verified 09/27/23 21:06 - Past Medical History Past Medical History: Yes Neurological History: No Pertinent History ENT History: No Pertinent History Cardiac History: Coronary Artery Disease, High Cholesterol, Hypertension Respiratory History: Bronchitis, Other Endocrine Medical History: No Pertinent History Musculoskelatal History: Arthritis GI Medical History: GERD History: Renal Disease Pyscho-Social History: Anxiety Reproductive Disorders: No Pertinent History Comment: 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 hx: irregular heart rate. recent sinus drainage, hx allergies - Female History Are you now?: No - Past Surgical History Past Surgical History: Yes Neuro Surgical History: No Pertinent History Cardiac History: Cardiac Catheterization, Cardiac Stent Respiratory Surgery: No Pertinent History GI Surgical History: Appendectomy, Cholecystectomy Genitourinary Surgical Hx: No Pertinent History Musculskeletal Surgical Hx: No Pertinent History Female Surgical History: Dilation & Curettage Other Surgical History: lbil. eye surgery cataract removal w/ lens placed, facial lesion removed ( benign). 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, normal mood/affect, nml cerebellar function Eye Exam: PERRL/EOMI, eyes nml inspection Ears, Nose, Throat Exam: normal ENT inspection, pharynx normal, moist mucous membranes Neck Exam: normal inspection, non-tender, supple, full range of motion Respiratory Exam: normal breath sounds, lungs clear, No respiratory distress Cardiovascular Exam: regular rate/rhythm, normal heart sounds Gastrointestinal/Abdomen Exam: soft, normal bowel sounds, No tenderness, No mass Back Exam: normal range of motion, No CVA tenderness, No vertebral tenderness Extremity Exam: limited range of motion (in right shoulder, currently in sling) Skin Exam: normal color, warm, dry, No rash Results - Labs Lab/Micro Results: Lab Results-Last 24 Hours 09/27/23 09/27/23 09/27/23 Range/Units 15:40 15:40 15:40 WBC 7.6 (4.0-10.5) x10^3/uL RBC 3.69 L (4.1-5.4) x10^6/uL Hgb 11.0 L (12.0-16.0) g/dL Hct 35.0 (35-47) % MCV 94.9 (78-100) fL MCH 29.8 (26-32) pg MCHC 31.4 L (32-36) g/dL RDW 12.0 (11.5-14.0) % Plt Count 241 (150-450) x10^3/uL MPV 9.2 (7.5-11.0) fL Gran % 52.0 (36.0-66.0) % Immature Gran % (Auto) 0.3 (0.00-0.4) % Nucleat RBC Rel Count 0.0 (0.00-0.1) % Eos # (Auto) 0.26 (0-0.5) x10^3/uL Immature Gran # (Auto) 0.02 (0.00-0.03) x10^3u/L Absolute Lymphs (auto) 2.60 (1.0-4.6) x10^3/uL Absolute Monos (auto) 0.72 (0.0-1.3) x10^3/uL Absolute Nucleated RBC 0.00 (0.00-0.01) x10^3u/L Lymphocytes % 34.0 (24.0-44.0) % Monocytes % 9.4 (0.0-12.0) % Eosinophils % 3.4 (0.00-5.0) % Basophils % 0.9 (0.0-0.4) % Absolute Granulocytes 3.97 (1.4-6.9) x10^3/uL Basophils # 0.07 (0-0.4) x10^3/uL PT 9.9 (9.4-12.5) SECONDS INR 0.90 (0.8-3.0) Sodium 134 L (137-145) mmol/L Potassium 5.5 H (3.5-5.1) mmol/L Chloride 107 (98-107) mmol/L Carbon Dioxide 17 L (22-30) mmol/L Anion Gap 14.9 (5-15) MEQ/L BUN 30 H (7-17) mg/dL Creatinine 1.43 H (0.52-1.04) mg/dL Estimated GFR 35.7 ML/MIN Glucose 135 H (74-106) mg/dL Calcium 9.6 (8.4-10.2) mg/dL Troponin I (0.000-0.034) ng/mL Urine Color (Yellow) Urine Appearance (Clear) Urine pH (4.6-8.0) Ur Specific [place] (1.005-1.030) Urine Protein (Negative) Urine Glucose (UA) (Negative) mg/dL Urine Ketones (Negative) Urine Blood (Negative) Urine Nitrite (Negative) Urine Bilirubin (Negative) Urine Urobilinogen (0.2) mg/dL Ur Leukocyte Esterase (Negative) U Hyaline Cast (Auto) (0-2) /LPF Urine Microscopic RBC (0-5) /HPF Urine Microscopic WBC (0-5) /HPF Ur Epithelial Cells (None Seen) /HPF Urine Bacteria (None Seen) /HPF Urine Culture Reflexed (NO) 09/27/23 09/27/23 Range/Units 15:40 18:32 WBC (4.0-10.5) x10^3/uL RBC (4.1-5.4) x10^6/uL Hgb (12.0-16.0) g/dL Hct (35-47) % MCV (78-100) fL MCH (26-32) pg MCHC (32-36) g/dL RDW (11.5-14.0) % Plt Count (150-450) x10^3/uL MPV (7.5-11.0) fL Gran % (36.0-66.0) % Immature Gran % (Auto) (0.00-0.4) % Nucleat RBC Rel Count (0.00-0.1) % Eos # (Auto) (0-0.5) x10^3/uL Immature Gran # (Auto) (0.00-0.03) x10^3u/L Absolute Lymphs (auto) (1.0-4.6) x10^3/uL Absolute Monos (auto) (0.0-1.3) x10^3/uL Absolute Nucleated RBC (0.00-0.01) x10^3u/L Lymphocytes % (24.0-44.0) % Monocytes % (0.0-12.0) % Eosinophils % (0.00-5.0) % Basophils % (0.0-0.4) % Absolute Granulocytes (1.4-6.9) x10^3/uL Basophils # (0-0.4) x10^3/uL PT (9.4-12.5) SECONDS INR (0.8-3.0) Sodium (137-145) mmol/L Potassium (3.5-5.1) mmol/L Chloride (98-107) mmol/L Carbon Dioxide (22-30) mmol/L Anion Gap (5-15) MEQ/L BUN (7-17) mg/dL Creatinine (0.52-1.04) mg/dL Estimated GFR ML/MIN Glucose (74-106) mg/dL Calcium (8.4-10.2) mg/dL Troponin I < 0.012 (0.000-0.034) ng/mL Urine Color Yellow (Yellow) Urine Appearance Clear (Clear) Urine pH 5.5 (4.6-8.0) Ur Specific [place] 1.015 (1.005-1.030) Urine Protein Negative (Negative) Urine Glucose (UA) Negative (Negative) mg/dL Urine Ketones Negative (Negative) Urine Blood Negative (Negative) Urine Nitrite Negative (Negative) Urine Bilirubin Negative (Negative) Urine Urobilinogen 0.2 (0.2) mg/dL Ur Leukocyte Esterase Trace A (Negative) U Hyaline Cast (Auto) 3-5 A (0-2) /LPF Urine Microscopic RBC 0-2 (0-5) /HPF Urine Microscopic WBC 3-5 (0-5) /HPF Ur Epithelial Cells Few (None Seen) /HPF Urine Bacteria Rare A (None Seen) /HPF Urine Culture Reflexed NO (NO) - Radiology Impressions Radiology Exams & Impressions: Radiology Procedures Category Date Time Status ANKLE (3 VIEWS) Stat Exams 09/27/23 17:20 Taken CLAVICLE Stat Exams 09/27/23 15:42 Completed HEAD WITHOUT CONTRAST [CT] Stat Exams 09/27/23 18:31 Taken HUMERUS Stat Exams 09/27/23 15:42 Completed SHOULDER Stat Exams 09/27/23 15:42 Completed UPPER EXTREMITY W/O CONTRAST [CT] Stat Exams 09/27/23 16:59 Taken Assessment/Plan (1) Near syncope Current Visit: Yes Status: Acute Assessment & Plan: Suspect narcotic affect. Will avoid narcotics if possible. Tramadol for significant pain. Possible component of dehydration. Gentle IV fluids and monitor on tele. BMP shows hyperkalemia but may be a hemolyzed sample; will repeat BMP. AM orthostatics. (2) Fracture of humeral head, right, closed Current Visit: Yes Status: Acute Assessment & Plan: Should pain control with tylenol and ultram. Sling use. Will attempt to have patient seen by Dr. Weiss in ortho clinic tomorrow. CT arranged by ED. PT/OT. Code(s): S42.291A - OT DISP FX OF UPPER END OF RIGHT HUMERUS, INIT FOR CLOS FX (3) Chronic renal disease, stage 4, severely decreased glomerular filtration rate (GFR) between 15-29 mL/min/1.73 square meter Current Visit: No Status: Acute Assessment & Plan: Monitor renal function. Elevated potassium noted; unclear if hemolyzed sample. Repeat BMP and monitor on tele. If persistently hyperkalemic, will have to hold lisinopril. Code(s): N18.4 - CHRONIC KIDNEY DISEASE, STAGE 4 (SEVERE) Telemedicine Encounter - Telemedicine Encounter Telemedicine Encounter: The entirety of this encounter was performed via Telemedicine"
[2023-09-27 23:08] LABS: ANION GAP 12.2 MEQ/L (5-15); Creatinine 1 1.31 mg/dL (0.52-1.04); EST GLOMERULAR FILTRATION RATE 39.7 ML/MIN; Potassium 4.7 mmol/L (3.5-5.1)
[2023-09-28] MEDS: MORPHINE SULFATE 2 MG INJ IV PRN ×3 (02:28→17:09)
[2023-09-28 05:00] LABS: BASOPHIL % 0.4 % (0.0-0.4); Basophil (Absolute #) 0.03 x10^3/uL (0-0.4); Eosinophil % 0.9 % (0.00-5.0); Eosinophil (Absolute #) 0.07 x10^3/uL (0-0.5); Hematocrit 29.7 % (35-47); Hemoglobin 9.2 g/dL (12.0-16.0); IMMATURE GRAN # 0.02 x10^3u/L (0.00-0.03); IMMATURE GRAN % 0.2 % (0.00-0.4); Lymphocyte (Absolute #) 1.84 x10^3/uL (1.0-4.6); Lymphocytes % 22.4 % (24.0-44.0); Mean Cell Volume 95.5 fL (78-100); Mean Corpuscular Hemoglobin 29.6 pg (26-32); Mean Platelet Volume 9.2 fL (7.5-11.0); Monocyte (Absolute #) 1.05 x10^3/uL (0.0-1.3); Monocytes % 12.8 % (0.0-12.0); Neutrophil % 63.3 % (36.0-66.0); Platelet Count 230 x10^3/uL (150-450); Red Blood Count 3.11 x10^6/uL (4.1-5.4); Red Cell Distribution Width 12.3 % (11.5-14.0); White Blood Count 8.2 x10^3/uL (4.0-10.5)
[2023-09-28] MEDS: Sodium Chloride 0.9% 1000 ML 1,000 ML IV SCH ×2 (05:32→19:05)
[2023-09-28 05:41] LABS: Calcium 8.7 mg/dL (8.4-10.2); Creatinine 1 1.31 mg/dL (0.52-1.04); EST GLOMERULAR FILTRATION RATE 39.7 ML/MIN; Potassium 4.4 mmol/L (3.5-5.1)
[2023-09-28] MEDS: ULTRAM 50 MG PO PRN ×3 (07:38→14:02)
--- NOTE | 2023-09-28 08:26 | XRAY ---
Indication: Pain following fall. Comparison: None 3 view right ankle demonstrates osteopenia, small heel spurs, and small cuboid accessory ossicle. No other bony, articular, or soft tissue abnormalities.
--- NOTE | 2023-09-28 08:29 | XRAY ---
Indication: Syncope. Status post fall. Multiple contiguous axial images obtained through the head without contrast. Comparison: July 25, 2023 Again age-appropriate global atrophy and mild periventricular degenerative micro-ischemia bilaterally. No acute intracranial hemorrhage, abnormal extra-axial fluid collection, or mass effect. Fourth ventricle is midline without hydrocephalus. Bony calvarium intact. Visualized paranasal sinuses and mastoid air cells are clear. Impression: Nonacute senile brain.
--- NOTE | 2023-09-28 08:36 | XRAY ---
Indication: Status post fall. Humeral head fracture. Multiple contiguous axial images obtained through the right shoulder. 2-D sagittal and coronal reformatted images obtained. Additional 3-D reformatted images obtained using a separate workstation. Comparison: None Osseous structures demineralized. Comminuted displaced fracture humeral head/neck. Small hemarthrosis with slight inferior subluxation humeral head. Elsewhere mild acromioclavicular degenerative arthropathy. Visualized noncontrasted soft tissues demonstrates demonstrates edema and stranding majority of visualized triceps muscle favoring acute strain injury. No focal solid/cystic soft tissue mass or abnormal fluid collection. Visualized right lung demonstrates dependent atelectasis and a few small mediastinal/right hilar calcified nodes. Impression: 1. Comminuted and displaced fracture humeral head/neck. 2. Probable strain injury triceps muscle. 3. Chronic findings including osteopenia, AC degenerative arthropathy, and old granulomatous disease.
[2023-09-28] MEDS: SYNTHROID 50 MCG PO SCH (09:18)
[2023-09-28] MEDS: ECOTRIN 81 MG PO SCH (09:18)
[2023-09-28] MEDS: NORVASC 5 MG PO SCH (09:18)
[2023-09-28] MEDS: Protonix 40MG Tablet PO SCH ×2 (09:18→22:14)
[2023-09-28] MEDS: Pepcid 20 MG PO SCH ×2 (09:18→22:14)
--- NOTE | 2023-09-28 09:41 | XRAY ---
Indication: Pain following fall. Comparison: None 3 portable views left knee demonstrates osteopenia, minimal/mild tricompartmental degenerative changes, and minimal vascular calcifications. No other bony, articular, or soft tissue abnormalities.
--- NOTE | 2023-09-28 09:41 | XRAY ---
Indication: Pain following fall. Comparison: None 3 portable views right knee demonstrates osteopenia, minimal/mild tricompartmental degenerative changes, and mild scattered vascular calcifications. No other bony, articular, or soft tissue abnormalities.
--- NOTE | 2023-09-28 09:44 | PCM.NOTE ---
Date and Time: 09/28/23 0943 OBJECTIVE DATA Vital Signs: Vital Signs - 24 hr Temp Pulse Resp BP Pulse Ox 09/28/23 07:16 98.5 F 68 16 115/57 100 09/28/23 03:07 97.5 F 66 20 135/60 100 09/27/23 22:08 99 09/27/23 20:40 97.5 F 78 16 171/75 99 09/27/23 20:00 58 L 16 161/64 99 09/27/23 19:00 98 F 58 L 16 168/59 100 09/27/23 18:32 56 L 16 119/53 95 09/27/23 16:10 68 18 92 L 09/27/23 15:08 98 F 62 20 187/75 100 Pain Assessment - Last Documented Pain Intensity 5 Pain Scale Used 0-10 Pain Scale Intake and Output: Intake & Output 09/25/23 09/26/23 09/27/23 09/28/23 11:59 11:59 11:59 11:59 Intake Total 100 Balance 100 Weight 73.9 kg Lab Results: Lab Results-Last 24 Hours 09/27/23 09/27/23 09/27/23 Range/Units 15:40 15:40 15:40 WBC 7.6 (4.0-10.5) x10^3/uL RBC 3.69 L (4.1-5.4) x10^6/uL Hgb 11.0 L (12.0-16.0) g/dL Hct 35.0 (35-47) % MCV 94.9 (78-100) fL MCH 29.8 (26-32) pg MCHC 31.4 L (32-36) g/dL RDW 12.0 (11.5-14.0) % Plt Count 241 (150-450) x10^3/uL MPV 9.2 (7.5-11.0) fL Gran % 52.0 (36.0-66.0) % Immature Gran % (Auto) 0.3 (0.00-0.4) % Nucleat RBC Rel Count 0.0 (0.00-0.1) % Eos # (Auto) 0.26 (0-0.5) x10^3/uL Immature Gran # (Auto) 0.02 (0.00-0.03) x10^3u/L Absolute Lymphs (auto) 2.60 (1.0-4.6) x10^3/uL Absolute Monos (auto) 0.72 (0.0-1.3) x10^3/uL Absolute Nucleated RBC 0.00 (0.00-0.01) x10^3u/L Lymphocytes % 34.0 (24.0-44.0) % Monocytes % 9.4 (0.0-12.0) % Eosinophils % 3.4 (0.00-5.0) % Basophils % 0.9 (0.0-0.4) % Absolute Granulocytes 3.97 (1.4-6.9) x10^3/uL Basophils # 0.07 (0-0.4) x10^3/uL PT 9.9 (9.4-12.5) SECONDS INR 0.90 (0.8-3.0) D-Dimer (0.0-0.50) mg/L Sodium 134 L (137-145) mmol/L Potassium 5.5 H (3.5-5.1) mmol/L Chloride 107 (98-107) mmol/L Carbon Dioxide 17 L (22-30) mmol/L Anion Gap 14.9 (5-15) MEQ/L BUN 30 H (7-17) mg/dL Creatinine 1.43 H (0.52-1.04) mg/dL Estimated GFR 35.7 ML/MIN Glucose 135 H (74-106) mg/dL Calcium 9.6 (8.4-10.2) mg/dL Troponin I (0.000-0.034) ng/mL Urine Color (Yellow) Urine Appearance (Clear) Urine pH (4.6-8.0) Ur Specific [place] (1.005-1.030) Urine Protein (Negative) Urine Glucose (UA) (Negative) mg/dL Urine Ketones (Negative) Urine Blood (Negative) Urine Nitrite (Negative) Urine Bilirubin (Negative) Urine Urobilinogen (0.2) mg/dL Ur Leukocyte Esterase (Negative) U Hyaline Cast (Auto) (0-2) /LPF Urine Microscopic RBC (0-5) /HPF Urine Microscopic WBC (0-5) /HPF Ur Epithelial Cells (None Seen) /HPF Urine Bacteria (None Seen) /HPF Urine Culture Reflexed (NO) 09/27/23 09/27/23 09/27/23 Range/Units 15:40 18:32 22:54 WBC (4.0-10.5) x10^3/uL RBC (4.1-5.4) x10^6/uL Hgb (12.0-16.0) g/dL Hct (35-47) % MCV (78-100) fL MCH (26-32) pg MCHC (32-36) g/dL RDW (11.5-14.0) % Plt Count (150-450) x10^3/uL MPV (7.5-11.0) fL Gran % (36.0-66.0) % Immature Gran % (Auto) (0.00-0.4) % Nucleat RBC Rel Count (0.00-0.1) % Eos # (Auto) (0-0.5) x10^3/uL Immature Gran # (Auto) (0.00-0.03) x10^3u/L Absolute Lymphs (auto) (1.0-4.6) x10^3/uL Absolute Monos (auto) (0.0-1.3) x10^3/uL Absolute Nucleated RBC (0.00-0.01) x10^3u/L Lymphocytes % (24.0-44.0) % Monocytes % (0.0-12.0) % Eosinophils % (0.00-5.0) % Basophils % (0.0-0.4) % Absolute Granulocytes (1.4-6.9) x10^3/uL Basophils # (0-0.4) x10^3/uL PT (9.4-12.5) SECONDS INR (0.8-3.0) D-Dimer (0.0-0.50) mg/L Sodium (137-145) mmol/L Potassium (3.5-5.1) mmol/L Chloride (98-107) mmol/L Carbon Dioxide (22-30) mmol/L Anion Gap (5-15) MEQ/L BUN (7-17) mg/dL Creatinine (0.52-1.04) mg/dL Estimated GFR ML/MIN Glucose (74-106) mg/dL Calcium (8.4-10.2) mg/dL Troponin I < 0.012 < 0.012 (0.000-0.034) ng/mL Urine Color Yellow (Yellow) Urine Appearance Clear (Clear) Urine pH 5.5 (4.6-8.0) Ur Specific [place] 1.015 (1.005-1.030) Urine Protein Negative (Negative) Urine Glucose (UA) Negative (Negative) mg/dL Urine Ketones Negative (Negative) Urine Blood Negative (Negative) Urine Nitrite Negative (Negative) Urine Bilirubin Negative (Negative) Urine Urobilinogen 0.2 (0.2) mg/dL Ur Leukocyte Esterase Trace A (Negative) U Hyaline Cast (Auto) 3-5 A (0-2) /LPF Urine Microscopic RBC 0-2 (0-5) /HPF Urine Microscopic WBC 3-5 (0-5) /HPF Ur Epithelial Cells Few (None Seen) /HPF Urine Bacteria Rare A (None Seen) /HPF Urine Culture Reflexed NO (NO) 09/27/23 09/28/23 09/28/23 Range/Units 22:54 04:39 04:39 WBC 8.2 (4.0-10.5) x10^3/uL RBC 3.11 L (4.1-5.4) x10^6/uL Hgb 9.2 L (12.0-16.0) g/dL Hct 29.7 L (35-47) % MCV 95.5 (78-100) fL MCH 29.6 (26-32) pg MCHC 31.0 L (32-36) g/dL RDW 12.3 (11.5-14.0) % Plt Count 230 (150-450) x10^3/uL MPV 9.2 (7.5-11.0) fL Gran % 63.3 (36.0-66.0) % Immature Gran % (Auto) 0.2 (0.00-0.4) % Nucleat RBC Rel Count 0.0 (0.00-0.1) % Eos # (Auto) 0.07 (0-0.5) x10^3/uL Immature Gran # (Auto) 0.02 (0.00-0.03) x10^3u/L Absolute Lymphs (auto) 1.84 (1.0-4.6) x10^3/uL Absolute Monos (auto) 1.05 (0.0-1.3) x10^3/uL Absolute Nucleated RBC 0.00 (0.00-0.01) x10^3u/L Lymphocytes % 22.4 L (24.0-44.0) % Monocytes % 12.8 H (0.0-12.0) % Eosinophils % 0.9 (0.00-5.0) % Basophils % 0.4 (0.0-0.4) % Absolute Granulocytes 5.20 (1.4-6.9) x10^3/uL Basophils # 0.03 (0-0.4) x10^3/uL PT (9.4-12.5) SECONDS INR (0.8-3.0) D-Dimer (0.0-0.50) mg/L Sodium 134 L (137-145) mmol/L Potassium 4.7 (3.5-5.1) mmol/L Chloride 107 (98-107) mmol/L Carbon Dioxide 20 L (22-30) mmol/L Anion Gap 12.2 (5-15) MEQ/L BUN 28 H (7-17) mg/dL Creatinine 1.31 H (0.52-1.04) mg/dL Estimated GFR 39.7 ML/MIN Glucose 150 H (74-106) mg/dL Calcium 9.0 (8.4-10.2) mg/dL Troponin I < 0.012 (0.000-0.034) ng/mL Urine Color (Yellow) Urine Appearance (Clear) Urine pH (4.6-8.0) Ur Specific [place] (1.005-1.030) Urine Protein (Negative) Urine Glucose (UA) (Negative) mg/dL Urine Ketones (Negative) Urine Blood (Negative) Urine Nitrite (Negative) Urine Bilirubin (Negative) Urine Urobilinogen (0.2) mg/dL Ur Leukocyte Esterase (Negative) U Hyaline Cast (Auto) (0-2) /LPF Urine Microscopic RBC (0-5) /HPF Urine Microscopic WBC (0-5) /HPF Ur Epithelial Cells (None Seen) /HPF Urine Bacteria (None Seen) /HPF Urine Culture Reflexed (NO) 09/28/23 09/28/23 Range/Units 04:39 07:16 WBC (4.0-10.5) x10^3/uL RBC (4.1-5.4) x10^6/uL Hgb (12.0-16.0) g/dL Hct (35-47) % MCV (78-100) fL MCH (26-32) pg MCHC (32-36) g/dL RDW (11.5-14.0) % Plt Count (150-450) x10^3/uL MPV (7.5-11.0) fL Gran % (36.0-66.0) % Immature Gran % (Auto) (0.00-0.4) % Nucleat RBC Rel Count (0.00-0.1) % Eos # (Auto) (0-0.5) x10^3/uL Immature Gran # (Auto) (0.00-0.03) x10^3u/L Absolute Lymphs (auto) (1.0-4.6) x10^3/uL Absolute Monos (auto) (0.0-1.3) x10^3/uL Absolute Nucleated RBC (0.00-0.01) x10^3u/L Lymphocytes % (24.0-44.0) % Monocytes % (0.0-12.0) % Eosinophils % (0.00-5.0) % Basophils % (0.0-0.4) % Absolute Granulocytes (1.4-6.9) x10^3/uL Basophils # (0-0.4) x10^3/uL PT (9.4-12.5) SECONDS INR (0.8-3.0) D-Dimer 3.22 H* (0.0-0.50) mg/L Sodium 131 L (137-145) mmol/L Potassium 4.4 (3.5-5.1) mmol/L Chloride 106 (98-107) mmol/L Carbon Dioxide 20 L (22-30) mmol/L Anion Gap 9.0 (5-15) MEQ/L BUN 25 H (7-17) mg/dL Creatinine 1.31 H (0.52-1.04) mg/dL Estimated GFR 39.7 ML/MIN Glucose 123 H (74-106) mg/dL Calcium 8.7 (8.4-10.2) mg/dL Troponin I (0.000-0.034) ng/mL Urine Color (Yellow) Urine Appearance (Clear) Urine pH (4.6-8.0) Ur Specific [place] (1.005-1.030) Urine Protein (Negative) Urine Glucose (UA) (Negative) mg/dL Urine Ketones (Negative) Urine Blood (Negative) Urine Nitrite (Negative) Urine Bilirubin (Negative) Urine Urobilinogen (0.2) mg/dL Ur Leukocyte Esterase (Negative) U Hyaline Cast (Auto) (0-2) /LPF Urine Microscopic RBC (0-5) /HPF Urine Microscopic WBC (0-5) /HPF Ur Epithelial Cells (None Seen) /HPF Urine Bacteria (None Seen) /HPF Urine Culture Reflexed (NO) Radiology Exams: Radiology Procedures Category Date Time Status ANKLE (3 VIEWS) Stat Exams 09/27/23 17:20 Completed CLAVICLE Stat Exams 09/27/23 15:42 Completed HEAD WITHOUT CONTRAST [CT] Stat Exams 09/27/23 18:31 Completed HUMERUS Stat Exams 09/27/23 15:42 Completed KNEE (3 VIEWS) Routine Exams 09/28/23 08:51 Completed KNEE (3 VIEWS) Routine Exams 09/28/23 08:51 Completed SHOULDER Stat Exams 09/27/23 15:42 Completed UPPER EXTREMITY W/O CONTRAST [CT] Stat Exams 09/27/23 16:59 Completed Assessment/Plan (1) Closed fracture of right proximal humerus Current Visit: Yes Status: Acute Code(s): S42.201A - UNSP FRACTURE OF UPPER END OF RIGHT HUMERUS, INIT (2) Contusion of knee, left Current Visit: Yes Status: Acute Code(s): S80.02XA - CONTUSION OF LEFT KNEE, INITIAL ENCOUNTER (3) Contusion of knee, right Current Visit: Yes Status: Acute Assessment & Plan: X-ray of bilateral knees with 3 views reviewed with moderate bilateral patellofemoral DJD no fracture seen. May continue weightbearing as tolerated Code(s): S80.01XA - CONTUSION OF RIGHT KNEE, INITIAL ENCOUNTER (4) Mild sprain of right ankle Current Visit: Yes Status: Acute Code(s): S93.401A - SPRAIN OF UNSPECIFIED LIGAMENT OF RIGHT ANKLE, INIT ENCNTR
[2023-09-28] MEDS ORDERED: NON-FORMULARY ITEM (Aspirin [Aspirin] 81 MG Tablet) PO SCH (10:00)
[2023-09-28] MEDS ORDERED: Zestril 5 MG PO SCH (10:00)
[2023-09-28] MEDS ORDERED: Maxzide-25MG Tablet PO SCH (10:00)
[2023-09-28] MEDS ORDERED: HEPARIN 5000 UNITS/0.5 ML (HIGH RISK MED) SQ SCH (10:00)
[2023-09-28] MEDS ORDERED: NON-FORMULARY ITEM (Omeprazole [Omeprazole] 20 MG Tablet.Dr) PO SCH (10:00)
[2023-09-28] MEDS ORDERED: NON-FORMULARY ITEM (Lisinopril [Zestril] 2.5 MG Tablet) PO SCH (10:00)
[2023-09-28] MEDS ORDERED: NON-FORMULARY ITEM (Amlodipine Besylate [Norvasc] 2.5 MG Tablet) PO SCH (10:00)
[2023-09-28] MEDS ORDERED: NORVASC 5 MG PO SCH (10:00)
--- NOTE | 2023-09-28 11:30 | PCM.NOTE ---
Date and Time: 09/28/23 1121 Subjective Assessment: Ms. Bangura is an 84 year old female with a pmhx of CAD, HLD, HTN, GERD, and CKD who presented to ED 09/27/23 after a fall at home. CR right clavicle/humerus/shoulder showing mildly displaced and comminuted humeral head/neck fracture and inferior humeral head subluxation> CT upper extremity demonstrating comminuted and displaced fracture humeral head/neck and probable tricep strain. Right ankle/knee xray with no acute findings. CT head with no acute findings. Ortho consulted, plan for surgical intervention 09/29/23. 09/28/23: Met with patient and daughters bedside. Patient endorsing right shoulder/arm pain 8/10 on numerical pain scale. Ortho consulted with plans for surgical intervention tomorrow. Labs discussed, creat elevated but at baseline for patient. Denies fever,cough, sob, cp, abdominal pain, [place], dizziness, N/V/D. - Review of Systems Constitutional: No Symptoms Eyes: No Symptoms Ears, Nose, & Throat: No Symptoms Respiratory: No Symptoms Cardiac: No Symptoms Abdominal/Gastrointestinal: No Symptoms Genitourinary Symptoms: No Symptoms Musculoskeletal: Fall, Joint Pain Skin: No Symptoms Neurological: No Symptoms Psychological: No Symptoms Endocrine: No Symptoms Hematologic/Lymphatic: No Symptoms Immunological/Allergic: No Symptoms Objective Exam General Appearance: no apparent distress Neurologic Exam: alert, oriented x 3, cooperative Skin Exam: normal color Eye Exam: PERRL Ears, Nose, Throat Exam: normal ENT inspection Neck Exam: normal inspection Respiratory Exam: normal breath sounds, lungs clear Cardiovascular Exam: regular rate/rhythm, normal heart sounds Gastrointestinal/Abdomen Exam: soft Extremity Exam: limited range of motion (Right shoulder/arm) Back Exam: normal inspection Pelvic Exam: deferred Rectal Exam: deferred OBJECTIVE DATA Vital Signs: Vital Signs - 24 hr Temp Pulse Resp BP Pulse Ox 09/28/23 07:16 98.5 F 68 16 115/57 100 09/28/23 03:07 97.5 F 66 20 135/60 100 09/27/23 22:08 99 09/27/23 20:40 97.5 F 78 16 171/75 99 09/27/23 20:00 58 L 16 161/64 99 09/27/23 19:00 98 F 58 L 16 168/59 100 09/27/23 18:32 56 L 16 119/53 95 09/27/23 16:10 68 18 92 L 09/27/23 15:08 98 F 62 20 187/75 100 Pain Assessment - Last Documented Pain Intensity 5 Pain Scale Used 0-10 Pain Scale Intake and Output: Intake & Output 09/25/23 09/26/23 09/27/23 09/28/23 11:59 11:59 11:59 11:59 Intake Total 100 Balance 100 Weight 73.9 kg Lab Results: Lab Results-Last 24 Hours 09/27/23 09/27/23 09/27/23 Range/Units 15:40 15:40 15:40 WBC 7.6 (4.0-10.5) x10^3/uL RBC 3.69 L (4.1-5.4) x10^6/uL Hgb 11.0 L (12.0-16.0) g/dL Hct 35.0 (35-47) % MCV 94.9 (78-100) fL MCH 29.8 (26-32) pg MCHC 31.4 L (32-36) g/dL RDW 12.0 (11.5-14.0) % Plt Count 241 (150-450) x10^3/uL MPV 9.2 (7.5-11.0) fL Gran % 52.0 (36.0-66.0) % Immature Gran % (Auto) 0.3 (0.00-0.4) % Nucleat RBC Rel Count 0.0 (0.00-0.1) % Eos # (Auto) 0.26 (0-0.5) x10^3/uL Immature Gran # (Auto) 0.02 (0.00-0.03) x10^3u/L Absolute Lymphs (auto) 2.60 (1.0-4.6) x10^3/uL Absolute Monos (auto) 0.72 (0.0-1.3) x10^3/uL Absolute Nucleated RBC 0.00 (0.00-0.01) x10^3u/L Lymphocytes % 34.0 (24.0-44.0) % Monocytes % 9.4 (0.0-12.0) % Eosinophils % 3.4 (0.00-5.0) % Basophils % 0.9 (0.0-0.4) % Absolute Granulocytes 3.97 (1.4-6.9) x10^3/uL Basophils # 0.07 (0-0.4) x10^3/uL PT 9.9 (9.4-12.5) SECONDS INR 0.90 (0.8-3.0) D-Dimer (0.0-0.50) mg/L Sodium 134 L (137-145) mmol/L Potassium 5.5 H (3.5-5.1) mmol/L Chloride 107 (98-107) mmol/L Carbon Dioxide 17 L (22-30) mmol/L Anion Gap 14.9 (5-15) MEQ/L BUN 30 H (7-17) mg/dL Creatinine 1.43 H (0.52-1.04) mg/dL Estimated GFR 35.7 ML/MIN Glucose 135 H (74-106) mg/dL Calcium 9.6 (8.4-10.2) mg/dL Troponin I (0.000-0.034) ng/mL Urine Color (Yellow) Urine Appearance (Clear) Urine pH (4.6-8.0) Ur Specific [place] (1.005-1.030) Urine Protein (Negative) Urine Glucose (UA) (Negative) mg/dL Urine Ketones (Negative) Urine Blood (Negative) Urine Nitrite (Negative) Urine Bilirubin (Negative) Urine Urobilinogen (0.2) mg/dL Ur Leukocyte Esterase (Negative) U Hyaline Cast (Auto) (0-2) /LPF Urine Microscopic RBC (0-5) /HPF Urine Microscopic WBC (0-5) /HPF Ur Epithelial Cells (None Seen) /HPF Urine Bacteria (None Seen) /HPF Urine Culture Reflexed (NO) 09/27/23 09/27/23 09/27/23 Range/Units 15:40 18:32 22:54 WBC (4.0-10.5) x10^3/uL RBC (4.1-5.4) x10^6/uL Hgb (12.0-16.0) g/dL Hct (35-47) % MCV (78-100) fL MCH (26-32) pg MCHC (32-36) g/dL RDW (11.5-14.0) % Plt Count (150-450) x10^3/uL MPV (7.5-11.0) fL Gran % (36.0-66.0) % Immature Gran % (Auto) (0.00-0.4) % Nucleat RBC Rel Count (0.00-0.1) % Eos # (Auto) (0-0.5) x10^3/uL Immature Gran # (Auto) (0.00-0.03) x10^3u/L Absolute Lymphs (auto) (1.0-4.6) x10^3/uL Absolute Monos (auto) (0.0-1.3) x10^3/uL Absolute Nucleated RBC (0.00-0.01) x10^3u/L Lymphocytes % (24.0-44.0) % Monocytes % (0.0-12.0) % Eosinophils % (0.00-5.0) % Basophils % (0.0-0.4) % Absolute Granulocytes (1.4-6.9) x10^3/uL Basophils # (0-0.4) x10^3/uL PT (9.4-12.5) SECONDS INR (0.8-3.0) D-Dimer (0.0-0.50) mg/L Sodium (137-145) mmol/L Potassium (3.5-5.1) mmol/L Chloride (98-107) mmol/L Carbon Dioxide (22-30) mmol/L Anion Gap (5-15) MEQ/L BUN (7-17) mg/dL Creatinine (0.52-1.04) mg/dL Estimated GFR ML/MIN Glucose (74-106) mg/dL Calcium (8.4-10.2) mg/dL Troponin I < 0.012 < 0.012 (0.000-0.034) ng/mL Urine Color Yellow (Yellow) Urine Appearance Clear (Clear) Urine pH 5.5 (4.6-8.0) Ur Specific [place] 1.015 (1.005-1.030) Urine Protein Negative (Negative) Urine Glucose (UA) Negative (Negative) mg/dL Urine Ketones Negative (Negative) Urine Blood Negative (Negative) Urine Nitrite Negative (Negative) Urine Bilirubin Negative (Negative) Urine Urobilinogen 0.2 (0.2) mg/dL Ur Leukocyte Esterase Trace A (Negative) U Hyaline Cast (Auto) 3-5 A (0-2) /LPF Urine Microscopic RBC 0-2 (0-5) /HPF Urine Microscopic WBC 3-5 (0-5) /HPF Ur Epithelial Cells Few (None Seen) /HPF Urine Bacteria Rare A (None Seen) /HPF Urine Culture Reflexed NO (NO) 09/27/23 09/28/23 09/28/23 Range/Units 22:54 04:39 04:39 WBC 8.2 (4.0-10.5) x10^3/uL RBC 3.11 L (4.1-5.4) x10^6/uL Hgb 9.2 L (12.0-16.0) g/dL Hct 29.7 L (35-47) % MCV 95.5 (78-100) fL MCH 29.6 (26-32) pg MCHC 31.0 L (32-36) g/dL RDW 12.3 (11.5-14.0) % Plt Count 230 (150-450) x10^3/uL MPV 9.2 (7.5-11.0) fL Gran % 63.3 (36.0-66.0) % Immature Gran % (Auto) 0.2 (0.00-0.4) % Nucleat RBC Rel Count 0.0 (0.00-0.1) % Eos # (Auto) 0.07 (0-0.5) x10^3/uL Immature Gran # (Auto) 0.02 (0.00-0.03) x10^3u/L Absolute Lymphs (auto) 1.84 (1.0-4.6) x10^3/uL Absolute Monos (auto) 1.05 (0.0-1.3) x10^3/uL Absolute Nucleated RBC 0.00 (0.00-0.01) x10^3u/L Lymphocytes % 22.4 L (24.0-44.0) % Monocytes % 12.8 H (0.0-12.0) % Eosinophils % 0.9 (0.00-5.0) % Basophils % 0.4 (0.0-0.4) % Absolute Granulocytes 5.20 (1.4-6.9) x10^3/uL Basophils # 0.03 (0-0.4) x10^3/uL PT (9.4-12.5) SECONDS INR (0.8-3.0) D-Dimer (0.0-0.50) mg/L Sodium 134 L (137-145) mmol/L Potassium 4.7 (3.5-5.1) mmol/L Chloride 107 (98-107) mmol/L Carbon Dioxide 20 L (22-30) mmol/L Anion Gap 12.2 (5-15) MEQ/L BUN 28 H (7-17) mg/dL Creatinine 1.31 H (0.52-1.04) mg/dL Estimated GFR 39.7 ML/MIN Glucose 150 H (74-106) mg/dL Calcium 9.0 (8.4-10.2) mg/dL Troponin I < 0.012 (0.000-0.034) ng/mL Urine Color (Yellow) Urine Appearance (Clear) Urine pH (4.6-8.0) Ur Specific [place] (1.005-1.030) Urine Protein (Negative) Urine Glucose (UA) (Negative) mg/dL Urine Ketones (Negative) Urine Blood (Negative) Urine Nitrite (Negative) Urine Bilirubin (Negative) Urine Urobilinogen (0.2) mg/dL Ur Leukocyte Esterase (Negative) U Hyaline Cast (Auto) (0-2) /LPF Urine Microscopic RBC (0-5) /HPF Urine Microscopic WBC (0-5) /HPF Ur Epithelial Cells (None Seen) /HPF Urine Bacteria (None Seen) /HPF Urine Culture Reflexed (NO) 09/28/23 09/28/23 Range/Units 04:39 07:16 WBC (4.0-10.5) x10^3/uL RBC (4.1-5.4) x10^6/uL Hgb (12.0-16.0) g/dL Hct (35-47) % MCV (78-100) fL MCH (26-32) pg MCHC (32-36) g/dL RDW (11.5-14.0) % Plt Count (150-450) x10^3/uL MPV (7.5-11.0) fL Gran % (36.0-66.0) % Immature Gran % (Auto) (0.00-0.4) % Nucleat RBC Rel Count (0.00-0.1) % Eos # (Auto) (0-0.5) x10^3/uL Immature Gran # (Auto) (0.00-0.03) x10^3u/L Absolute Lymphs (auto) (1.0-4.6) x10^3/uL Absolute Monos (auto) (0.0-1.3) x10^3/uL Absolute Nucleated RBC (0.00-0.01) x10^3u/L Lymphocytes % (24.0-44.0) % Monocytes % (0.0-12.0) % Eosinophils % (0.00-5.0) % Basophils % (0.0-0.4) % Absolute Granulocytes (1.4-6.9) x10^3/uL Basophils # (0-0.4) x10^3/uL PT (9.4-12.5) SECONDS INR (0.8-3.0) D-Dimer 3.22 H* (0.0-0.50) mg/L Sodium 131 L (137-145) mmol/L Potassium 4.4 (3.5-5.1) mmol/L Chloride 106 (98-107) mmol/L Carbon Dioxide 20 L (22-30) mmol/L Anion Gap 9.0 (5-15) MEQ/L BUN 25 H (7-17) mg/dL Creatinine 1.31 H (0.52-1.04) mg/dL Estimated GFR 39.7 ML/MIN Glucose 123 H (74-106) mg/dL Calcium 8.7 (8.4-10.2) mg/dL Troponin I (0.000-0.034) ng/mL Urine Color (Yellow) Urine Appearance (Clear) Urine pH (4.6-8.0) Ur Specific [place] (1.005-1.030) Urine Protein (Negative) Urine Glucose (UA) (Negative) mg/dL Urine Ketones (Negative) Urine Blood (Negative) Urine Nitrite (Negative) Urine Bilirubin (Negative) Urine Urobilinogen (0.2) mg/dL Ur Leukocyte Esterase (Negative) U Hyaline Cast (Auto) (0-2) /LPF Urine Microscopic RBC (0-5) /HPF Urine Microscopic WBC (0-5) /HPF Ur Epithelial Cells (None Seen) /HPF Urine Bacteria (None Seen) /HPF Urine Culture Reflexed (NO) Radiology Exams: Radiology Procedures Category Date Time Status ANKLE (3 VIEWS) Stat Exams 09/27/23 17:20 Completed CLAVICLE Stat Exams 09/27/23 15:42 Completed HEAD WITHOUT CONTRAST [CT] Stat Exams 09/27/23 18:31 Completed HUMERUS Stat Exams 09/27/23 15:42 Completed KNEE (3 VIEWS) Routine Exams 09/28/23 08:51 Completed KNEE (3 VIEWS) Routine Exams 09/28/23 08:51 Completed SHOULDER Stat Exams 09/27/23 15:42 Completed UPPER EXTREMITY W/O CONTRAST [CT] Stat Exams 09/27/23 16:59 Completed Multi-Disciplinary Progress Notes: Multi-Disciplinary Progress Notes 09/28/23 09:58 Case Management Note by Patti Fay REFERRAL FAXED TO [facility]. THEY WILL NEED NOTIFIED AT TIME OF DC AT [phone]. THEY WILL NEED FAXED THE DC INSTRUCTIONS, DC MED LIST AND DC SUMMARY TO [phone] Initialized on 09/28/23 09:58 - END OF NOTE Assessment/Plan (1) Closed fracture of right proximal humerus Current Visit: Yes Status: Acute Assessment & Plan: -Ortho consulted, plans for surgical intervention 09/29/23 right reverse shoulder replacement. -Pain control -Cardiology has cleared patient Code(s): S42.201A - UNSP FRACTURE OF UPPER END OF RIGHT HUMERUS, INIT (2) CAD (coronary artery disease) Current Visit: Yes Status: Acute Assessment & Plan: -noted, continue appropriate home medications Code(s): I25.10 - ATHSCL HEART DISEASE OF [place] CORONARY ARTERY W/O ANG PCTRS (3) Contusion of knee, left Current Visit: Yes Status: Acute Assessment & Plan: -x-ray right and left knee with no acute findings Code(s): S80.02XA - CONTUSION OF LEFT KNEE, INITIAL ENCOUNTER (4) Fracture of humeral head, right, closed Current Visit: Yes Status: Acute Assessment & Plan: -see above Code(s): S42.291A - OTH DISP FX OF UPPER END OF RIGHT HUMERUS, INIT FOR CLOS FX (5) Near syncope Current Visit: Yes Status: Acute Assessment & Plan: -secondary for morphine given in ED, no further episodes (6) Chronic renal disease, stage 4, severely decreased glomerular filtration rate (GFR) between 15-29 mL/min/1.73 square meter Current Visit: No Status: Acute Assessment & Plan: -Noted, continue to monitor renal/lytes daily, patient is at her baseline creat -hold triamterene/hctz/lisinopril -avoid NSAIDS, ROCKY, ARBS Code(s): N18.4 - CHRONIC KIDNEY DISEASE, STAGE 4 (SEVERE) (7) Hypertension Current Visit: Yes Status: Acute Assessment & Plan: -stable, hold lisinopril, triamterene/hctz -Increase amlodipine to 5mg Code(s): I10 - ESSENTIAL (PRIMARY) HYPERTENSION (8) Fall Current Visit: Yes Status: Acute Assessment & Plan: -ground level -PT/ot eval once able Code(s): W19.XXXA - UNSPECIFIED FALL, INITIAL ENCOUNTER (9) Mild sprain of right ankle Current Visit: Yes Status: Acute Assessment & Plan: -reviewed ortho notes, "patient may weight-bear as tolerated on the right ankle and work on ROM and strengthening. A cane or hemiwalker for the left upper extremity." Code(s): S93.401A - SPRAIN OF UNSPECIFIED LIGAMENT OF RIGHT ANKLE, INIT ENCNTR (10) Hyponatremia Current Visit: Yes Status: Acute Assessment & Plan: -Hold triamterene/HCTZ - VTE: hold heparin for surgery, resume when okay with ortho PPI: protonix Dispo: 2-3 days Code(s): E87.1 - HYPO-OSMOLALITY AND HYPONATREMIA
[2023-09-28] MEDS ORDERED: TRANEXAMIC ACID 1000 MG/10 ML 1,000 MG in Sodium Chloride 0.9% 100 ML IV ONE (13:09)
[2023-09-28] MEDS ORDERED: TRANEXAMIC 1,000 MG/100ML-NACL 1,000 MG/100 ML PIGGYBACK IV ONE (13:15)
[2023-09-28 21:57] LABS: ABO TYPING B; Antibody Screen NEGATIVE (NEGATIVE); RH TYPING POSITIVE
[2023-09-28 21:58] LABS: CROSS MATCH (PRBC) COMPATIBLE (COMPATIBLE)
[2023-09-28] MEDS ORDERED: NON-FORMULARY ITEM (Simvastatin 40 Mg [Zocor 40 Mg] 40 MG Tablet) PO SCH (22:00)
[2023-09-28] MEDS: ZOCOR 20MG PO SCH (22:00)
--- NOTE | 2023-09-29 05:06 | PCM.NOTE ---
Date and Time: 09/29/23 0502 Subjective Assessment: Ms. Bangura is an 84 year old female with a pmhx of CAD, HLD, HTN, GERD, and CKD who presented to ED 09/27/23 after a fall at home. CR right clavicle/humerus/shoulder showing mildly displaced and comminuted humeral head/neck fracture and inferior humeral head subluxation> CT upper extremity demonstrating comminuted and displaced fracture humeral head/neck and probable tricep strain. Right ankle/knee xray with no acute findings. CT head with no acute findings. Ortho consulted, plan for surgical intervention 09/29/23. 09/29: Met with patient bedside. Surgery team at bedside. Patient endorses continued right shoulder/arm pain. Plan for surgical intervention today. Denies fever,cough, sob, cp, abdominal pain, [place], dizziness, N/V/D. - Review of Systems Constitutional: No Symptoms Eyes: No Symptoms Ears, Nose, & Throat: No Symptoms Respiratory: No Symptoms Cardiac: No Symptoms Abdominal/Gastrointestinal: No Symptoms Genitourinary Symptoms: No Symptoms Musculoskeletal: Joint Pain Skin: No Symptoms Neurological: No Symptoms Psychological: No Symptoms Endocrine: No Symptoms Hematologic/Lymphatic: No Symptoms Immunological/Allergic: No Symptoms Objective Exam General Appearance: no apparent distress Neurologic Exam: alert, oriented x 3, cooperative Skin Exam: normal color Wound Assessment: Skin/Wound Assessment Wound/Incision Assessment Start: 09/28/23 20:03 Text: Status: Active Freq: Q6H Protocol: Document 09/29/23 02:03 MP (Rec: 09/29/23 03:07 MP [id number]) Wound Photo Photo Taken No Eye Exam: PERRL Ears, Nose, Throat Exam: normal ENT inspection Neck Exam: normal inspection Respiratory Exam: normal breath sounds, lungs clear Cardiovascular Exam: regular rate/rhythm, normal heart sounds Gastrointestinal/Abdomen Exam: soft, normal bowel sounds Extremity Exam: limited range of motion (right upper ext/knee pain) Pelvic Exam: deferred Rectal Exam: deferred OBJECTIVE DATA Vital Signs: Vital Signs - 24 hr Temp Pulse Resp BP Pulse Ox 09/29/23 04:00 97.3 F 71 18 131/60 95 09/28/23 23:36 97.5 F 74 16 121/55 95 09/28/23 21:00 98 09/28/23 20:00 97.8 F 67 20 124/73 96 09/28/23 16:00 98.5 F 72 16 152/82 95 09/28/23 12:00 97.0 F 69 16 131/62 96 09/28/23 07:16 98.5 F 68 16 115/57 100 Pain Assessment - Last Documented Pain Intensity 4 Pain Scale Used 0-10 Pain Scale Intake and Output: Intake & Output 09/26/23 09/27/23 09/28/23 09/29/23 11:59 11:59 11:59 11:59 Intake Total 100 1442 Output Total 800 Balance 100 642 Weight 73.9 kg Lab Results: Lab Results-Last 24 Hours 09/28/23 09/28/23 09/28/23 Range/Units 04:39 04:39 04:39 WBC 8.2 (4.0-10.5) x10^3/uL RBC 3.11 L (4.1-5.4) x10^6/uL Hgb 9.2 L (12.0-16.0) g/dL Hct 29.7 L (35-47) % MCV 95.5 (78-100) fL MCH 29.6 (26-32) pg MCHC 31.0 L (32-36) g/dL RDW 12.3 (11.5-14.0) % Plt Count 230 (150-450) x10^3/uL MPV 9.2 (7.5-11.0) fL Gran % 63.3 (36.0-66.0) % Immature Gran % (Auto) 0.2 (0.00-0.4) % Nucleat RBC Rel Count 0.0 (0.00-0.1) % Eos # (Auto) 0.07 (0-0.5) x10^3/uL Immature Gran # (Auto) 0.02 (0.00-0.03) x10^3u/L Absolute Lymphs (auto) 1.84 (1.0-4.6) x10^3/uL Absolute Monos (auto) 1.05 (0.0-1.3) x10^3/uL Absolute Nucleated RBC 0.00 (0.00-0.01) x10^3u/L Lymphocytes % 22.4 L (24.0-44.0) % Monocytes % 12.8 H (0.0-12.0) % Eosinophils % 0.9 (0.00-5.0) % Basophils % 0.4 (0.0-0.4) % Absolute Granulocytes 5.20 (1.4-6.9) x10^3/uL Basophils # 0.03 (0-0.4) x10^3/uL D-Dimer (0.0-0.50) mg/L Sodium 131 L (137-145) mmol/L Potassium 4.4 (3.5-5.1) mmol/L Chloride 106 (98-107) mmol/L Carbon Dioxide 20 L (22-30) mmol/L Anion Gap 9.0 (5-15) MEQ/L BUN 25 H (7-17) mg/dL Creatinine 1.31 H (0.52-1.04) mg/dL Estimated GFR 39.7 ML/MIN Glucose 123 H (74-106) mg/dL Calcium 8.7 (8.4-10.2) mg/dL Troponin I < 0.012 (0.000-0.034) ng/mL ABO Group Rh Factor Antibody Screen (NEGATIVE) Crossmatch (COMPATIBLE) 09/28/23 09/28/23 09/28/23 Range/Units 07:16 18:20 18:20 WBC (4.0-10.5) x10^3/uL RBC (4.1-5.4) x10^6/uL Hgb (12.0-16.0) g/dL Hct (35-47) % MCV (78-100) fL MCH (26-32) pg MCHC (32-36) g/dL RDW (11.5-14.0) % Plt Count (150-450) x10^3/uL MPV (7.5-11.0) fL Gran % (36.0-66.0) % Immature Gran % (Auto) (0.00-0.4) % Nucleat RBC Rel Count (0.00-0.1) % Eos # (Auto) (0-0.5) x10^3/uL Immature Gran # (Auto) (0.00-0.03) x10^3u/L Absolute Lymphs (auto) (1.0-4.6) x10^3/uL Absolute Monos (auto) (0.0-1.3) x10^3/uL Absolute Nucleated RBC (0.00-0.01) x10^3u/L Lymphocytes % (24.0-44.0) % Monocytes % (0.0-12.0) % Eosinophils % (0.00-5.0) % Basophils % (0.0-0.4) % Absolute Granulocytes (1.4-6.9) x10^3/uL Basophils # (0-0.4) x10^3/uL D-Dimer 3.22 H* (0.0-0.50) mg/L Sodium (137-145) mmol/L Potassium (3.5-5.1) mmol/L Chloride (98-107) mmol/L Carbon Dioxide (22-30) mmol/L Anion Gap (5-15) MEQ/L BUN (7-17) mg/dL Creatinine (0.52-1.04) mg/dL Estimated GFR ML/MIN Glucose (74-106) mg/dL Calcium (8.4-10.2) mg/dL Troponin I (0.000-0.034) ng/mL ABO Group B Rh Factor POSITIVE Antibody Screen NEGATIVE (NEGATIVE) Crossmatch COMPATIBLE COMPATIBLE (COMPATIBLE) Radiology Exams: Radiology Procedures Category Date Time Status ANKLE (3 VIEWS) Stat Exams 09/27/23 17:20 Completed CLAVICLE Stat Exams 09/27/23 15:42 Completed HEAD WITHOUT CONTRAST [CT] Stat Exams 09/27/23 18:31 Completed HUMERUS Stat Exams 09/27/23 15:42 Completed KNEE (3 VIEWS) Routine Exams 09/28/23 08:51 Completed KNEE (3 VIEWS) Routine Exams 09/28/23 08:51 Completed PULMONARY PERF VENTILATION [NUCMED] Stat Exams 09/29/23 16:52 Ordered SHOULDER Stat Exams 09/27/23 15:42 Completed UPPER EXTREMITY W/O CONTRAST [CT] Stat Exams 09/27/23 16:59 Completed Multi-Disciplinary Progress Notes: Multi-Disciplinary Progress Notes 09/28/23 13:14 Physical Therapy Note by Negra(Nicole#[id number]),Leatha PT. TO HAVE REVERSE TOTAL SHOULDER TOMORROW 09/29/23. SPOKE W/ DAUGHTER RE: PLOF AND D/C PLANS. DAUGHTER REPORTS PT. LIVES ALONE W/ FAMILY CLOSEBY AND THEY WOULD NOT BE OPPOSED TO A REHAB STAY AFTER SX IF ABLE. WILL ASSESS AFTER SX. PT. RESTING COMFROTABLY W/ PN MEDS AND CP IN PLACE. Initialized on 09/28/23 13:14 - END OF NOTE 09/28/23 09:58 Case Management Note by Patti Fay REFERRAL FAXED TO [employer]. THEY WILL NEED NOTIFIED AT TIME OF DC AT [phone]. THEY WILL NEED FAXED THE DC INSTRUCTIONS, DC MED LIST AND DC SUMMARY TO [phone] Initialized on 09/28/23 09:58 - END OF NOTE Assessment/Plan (1) Closed fracture of right proximal humerus Current Visit: Yes Status: Acute Assessment & Plan: -Ortho consulted, plans for surgical intervention 09/29/23 right reverse shoulder replacement. -Pain control -Cardiology has cleared patient Code(s): S42.201A - UNSP FRACTURE OF UPPER END OF RIGHT HUMERUS, INIT (2) CAD (coronary artery disease) Current Visit: Yes Status: Acute Assessment & Plan: -noted, continue appropriate home medications Code(s): I25.10 - ATHSCL HEART DISEASE OF [place] CORONARY ARTERY W/O ANG PCTRS (3) Contusion of knee, left Current Visit: Yes Status: Acute Assessment & Plan: -x-ray right and left knee with no acute findings Code(s): S80.02XA - CONTUSION OF LEFT KNEE, INITIAL ENCOUNTER (4) Fracture of humeral head, right, closed Current Visit: Yes Status: Acute Assessment & Plan: -see above Code(s): S42.291A - OTH DISP FX OF UPPER END OF RIGHT HUMERUS, INIT FOR CLOS FX (5) Near syncope Current Visit: Yes Status: Acute Assessment & Plan: -secondary for morphine given in ED, no further episodes (6) Chronic renal disease, stage 4, severely decreased glomerular filtration rate (GFR) between 15-29 mL/min/1.73 square meter Current Visit: No Status: Acute Assessment & Plan: -Noted, continue to monitor renal/lytes daily, patient is at her baseline creat -hold triamterene/hctz/lisinopril -avoid NSAIDS, ROCKY, ARBS Code(s): N18.4 - CHRONIC KIDNEY DISEASE, STAGE 4 (SEVERE) (7) Hypertension Current Visit: Yes Status: Acute Assessment & Plan: -stable, hold lisinopril, triamterene/hctz -Increase amlodipine to 5mg Code(s): I10 - ESSENTIAL (PRIMARY) HYPERTENSION (8) Fall Current Visit: Yes Status: Acute Assessment & Plan: -ground level -PT/ot eval once able Code(s): W19.XXXA - UNSPECIFIED FALL, INITIAL ENCOUNTER (9) Mild sprain of right ankle Current Visit: Yes Status: Acute Assessment & Plan: -reviewed ortho notes, "patient may weight-bear as tolerated on the right ankle and work on ROM and strengthening. A cane or hemiwalker for the left upper extremity." Code(s): S93.401A - SPRAIN OF UNSPECIFIED LIGAMENT OF RIGHT ANKLE, INIT ENCNTR (10) Hyponatremia Current Visit: Yes Status: Acute Assessment & Plan: -Hold triamterene/HCTZ (11)Elevated DDimer -Most likely secondary to traume -Unable to perform CTA with low GFR -Consider VQ scan (11) UTI -Ucult with gram + ID, patient asymptomatic, will follow culture VTE: hold heparin for surgery, resume when okay with ortho PPI: protonix Dispo: 2-3 days Code(s): E87.1 - HYPO-OSMOLALITY AND HYPONATREMIA Code(s): S42.201A - UNSP FRACTURE OF UPPER END OF RIGHT HUMERUS, INIT (2) CAD (coronary artery disease) Current Visit: Yes Status: Acute Code(s): I25.10 - ATHSCL HEART DISEASE OF [place] CORONARY ARTERY W/O ANG PCTRS (3) Contusion of knee, left Current Visit: Yes Status: Acute Code(s): S80.02XA - CONTUSION OF LEFT KNEE, INITIAL ENCOUNTER (4) Fracture of humeral head, right, closed Current Visit: Yes Status: Acute Code(s): S42.291A - OTH DISP FX OF UPPER END OF RIGHT HUMERUS, INIT FOR CLOS FX (5) Near syncope Current Visit: Yes Status: Acute (6) Chronic renal disease, stage 4, severely decreased glomerular filtration rate (GFR) between 15-29 mL/min/1.73 square meter Current Visit: No Status: Acute Code(s): N18.4 - CHRONIC KIDNEY DISEASE, STAGE 4 (SEVERE) (7) Hypertension Current Visit: Yes Status: Acute Code(s): I10 - ESSENTIAL (PRIMARY) HYPERTENSION (8) Fall Current Visit: Yes Status: Acute Code(s): W19.XXXA - UNSPECIFIED FALL, INITIAL ENCOUNTER (9) Mild sprain of right ankle Current Visit: Yes Status: Acute Code(s): S93.401A - SPRAIN OF UNSPECIFIED LIGAMENT OF RIGHT ANKLE, INIT ENCNTR (10) Hyponatremia Current Visit: Yes Status: Acute Code(s): E87.1 - HYPO-OSMOLALITY AND HYPONATREMIA (11) UTI (urinary tract infection) Current Visit: Yes Status: Acute Code(s): N39.0 - URINARY TRACT INFECTION, SITE NOT SPECIFIED
[2023-09-29] MEDS ORDERED: Marcaine Mpf 0.5% Vial 30 Ml ONE (07:00)
[2023-09-29] MEDS ORDERED: Zofran 4 MG/2 ML VIAL ONE (07:32)
[2023-09-29] MEDS ORDERED: BRIDION 200MG/2ML IV ONE (07:32)
[2023-09-29] MEDS ORDERED: Xylocaine-Mpf 2% 5 Ml Vial ONE ×2 (07:32→08:24)
[2023-09-29] MEDS ORDERED: Zemuron 100 MG/10 ML ONE (07:32)
[2023-09-29] MEDS ORDERED: Decadron 4 MG INJ ONE (07:32)
[2023-09-29] MEDS ORDERED: SUBLIMAZE 100 MCG/2 ML ONE (07:36)
[2023-09-29 07:37] LABS: Absolute Neutrophil Ct (ANC) 4.93 x10^3/uL (1.4-6.9); BASOPHIL % 0.4 % (0.0-0.4); Basophil (Absolute #) 0.03 x10^3/uL (0-0.4); Eosinophil (Absolute #) 0.15 x10^3/uL (0-0.5); Hematocrit 26.8 % (35-47); Hemoglobin 8.5 g/dL (12.0-16.0); IMMATURE GRAN # 0.03 x10^3u/L (0.00-0.03); IMMATURE GRAN % 0.4 % (0.00-0.4); Lymphocyte (Absolute #) 1.56 x10^3/uL (1.0-4.6); Lymphocytes % 20.6 % (24.0-44.0); Mean Cell Volume 94.4 fL (78-100); Mean Corpuscular Hemoglobin 29.9 pg (26-32); Mean Corpuscular Hgb Concent. 31.7 g/dL (32-36); Monocyte (Absolute #) 0.89 x10^3/uL (0.0-1.3); Monocytes % 11.7 % (0.0-12.0); Neutrophil % 64.9 % (36.0-66.0); Platelet Count 171 x10^3/uL (150-450); Red Blood Count 2.84 x10^6/uL (4.1-5.4); Red Cell Distribution Width 11.9 % (11.5-14.0); White Blood Count 7.6 x10^3/uL (4.0-10.5)
[2023-09-29] MEDS ORDERED: PHENYLEPHRINE HCL 10 MG in Dextrose 5%/Water IV Soln. 250 ML 249 ML IV PRN (07:42)
[2023-09-29] MEDS ORDERED: Versed 2 MG/2 ML Injection ONE (07:48)
[2023-09-29 07:53] LABS: ALBUMIN 2.8 g/dL (3.5-5.0); ANION GAP 7.9 MEQ/L (5-15); BILIRUBIN,TOTAL 0.5 mg/dL (0.2-1.3); Calcium 8.3 mg/dL (8.4-10.2); Creatinine 1 1.28 mg/dL (0.52-1.04); EST GLOMERULAR FILTRATION RATE 40.8 ML/MIN; Potassium 4.4 mmol/L (3.5-5.1); Total Protein 5.7 g/dL (6.3-8.2)
[2023-09-29] MEDS ORDERED: NEURONTIN PO SCH (08:00)
[2023-09-29] MEDS ORDERED: Decadron 4 MG PO SCH (08:00)
[2023-09-29] MEDS ORDERED: TYLENOL EXTRA STRENGTH 500 MG PO SCH (08:00)
[2023-09-29] MEDS ORDERED: Sensorcaine 0.25% 10 ML ONE (09:28)
[2023-09-29] MEDS ORDERED: TRANEXAMIC 1,000 MG/100ML-NACL 1,000 MG/100 ML PIGGYBACK IV SCH (10:00)
[2023-09-29] MEDS ORDERED: XYLOCAINE 1%/Epi 1:100000 MDV 20 ML ONE (10:20)
[2023-09-29] MEDS: ECOTRIN 81 MG PO SCH (10:45)
[2023-09-29] MEDS: NORVASC 5 MG PO SCH (10:46)
[2023-09-29] MEDS: SYNTHROID 50 MCG PO SCH (10:46)
[2023-09-29] MEDS: Protonix 40MG Tablet PO SCH ×2 (10:46→21:39)
[2023-09-29] MEDS: Pepcid 20 MG PO SCH ×2 (10:46→21:39)
[2023-09-29] MEDS ORDERED: DEXMEDETOMIDINE 80 MCG/20ML-NS IV ONE (12:30)
[2023-09-29] MEDS ORDERED: CEFAZOLIN 2 GM-D5W BAG** 2 GM/50 ML ML IV ONE (13:10)
--- NOTE | 2023-09-29 13:53 | XRAY ---
Indication: Follow-up surgery. Comparison: September 27, 2023 Single AP right shoulder demonstrates interval arthroplasty with grossly intact bipolar prosthesis. Soft tissue changes and cutaneous cande attest to recent surgery. Stable osteopenia and AC degenerative arthropathy.
[2023-09-29] MEDS ORDERED: Hydromorphone 1 mg/ml Injection IV PRN (15:14)
[2023-09-29] MEDS ORDERED: NORCO 5/325 MG PO PRN (15:14)
--- NOTE | 2023-09-29 15:26 | OP ---
DATE OF PROCEDURE: 09/29/2023 0928 PREOPERATIVE DIAGNOSIS: Right comminuted four part fracture. POSTOPERATIVE DIAGNOSIS: Right comminuted four part fracture. PROCEDURE: Right reverse shoulder arthroplasty for fracture. ATTENDING PHYSICIAN: Josafat Sierra M.D. ANESTHESIA: General. ASSIST: Sadaf Lopez ophthalmic tech. FINDINGS: Comminuted four part fracture EBL: 100 ml. SPECIMEN: None. DRAIN: None. COMPLICATIONS: None. INDICATIONS FOR PROCEDURE: The patient is an 88-year-old female who fell two days ago sustaining above mentioned fracture. She came in to this place to get pain relief and better function. DESCRIPTION OF PROCEDURE: The patient is seen in the holding unit. Identified the right shoulder as correct. Initialed by me. The patient had general anesthesia and then had 1,000 mg tranexamic acid and 2 gm of Kefzol. She had beach chair positioning with eye protection and wide strap decompression over supraorbital nerve. She is held at 5 degree angle. Had pillow behind her calves keeping pressure off of her heels. Had left arm in padded Flores stand. Had a chest strap on the right side. Sterile prep and drape of right upper extremity. Time out was performed by me. Deltopectoral incision was used, this was injected with 10 cc of 1% lidocaine with epinephrine. Incision was made down through muscle fascia and the deltopectoral interval dissected protecting the cephalic vein retracting it laterally. Tuberosity were identified and tagged with 2 mm nonsoluable suture tape from [employer] placing two of these tapes in each of the tuberosity with nontented interface. The head fragment was spun around 90 degrees and removed. The medial metaphyseal vessel fragment was repositioned and was cerclaged back to the shaft with a doubled 18 gauge wire which was passed from medial to lateral taking care to stay on bone, this was twisted and held the position well. The glenoid was then exposed with retraction at the 3:00, 6:00 and 9:00 position. The glenoid labrum excised with a Bovie protecting the axillary nerve. The center of the glenoid was marked with a Bovie. A drill guide then placed center of the glenoid slightly inferior to the center point going 10 degree superior angle. The guide pin which was 3.[address] was [address] in [address], ring was placed over top of this in order to get down through cancellous bone inferiorly. The bony bed was irrigated and the pin was withdrawn and a true base plate was impacted being flush on bone. The impaction checking device was applied and showed that the impaction was good. The center screw was then drilled out with a drill guide and measured 30 mm, 30 mm nonlocking 6.5 mm screw placed in the center post with good compression. Three screws were then placed at the 6:00, 9:00 and 12:00 positions all being locking screws slightly divergent. Glenoid screw with medium offset with 2 mm offset inferiorly this is anchored onto the base plate with good screw fit which was checked with a bone hook. The humeral flap was then prepared with the tapered reamers starting at 6 mm going up to 12 mm sinking to 18 mm above the superior border pectoralis major. The trial tin stem was tried and fit well with the standard base plate with polyethylene and had good stability. The rotation of this was about 30 degrees of retroversion and this is marked on the humerus. The depth is also noted with cementing. The canal was fairly irrigated with cement plug was placed 1 cm distal to the tip of the prosthesis. The canal was dried and then Emigdio mix was mixed with one batch and this is retrograde injected with a nozzle and the true prosthesis was placed down with a size 10 fracture stem in 30 degrees retroversion to the same depth where the trial had been placed this was held in place while the cement hardened. It should be mentioned that two drill holes had been placed one distal anterior to the bicipital groove and one in the area of the insertion of the greater tuberosity and suture tapes had been placed through these holes. When the cement had hardened, reduction is done again with the medial base plate and +0 polyethylene. Good stability and good range of motion. The true baseplate with polyethylene was assembled on the back table and then this is impacted into clean skin and verified to be secure this is reduced with good stability again. The tuberosity remained down through the thin holes on the prosthesis and also to the shaft holes in the humerus. Shown to have good range of motion and stability. The shoulder is thoroughly irrigated with saline. The subcutaneous tissue closed with 2-0 Vicryl interrupted and skin stapled. Sterile dressing applied. The patient placed back in a sling. Patient left stable in the OR. DISPOSITION: Plan for patient to do pendulum exercises. She will have passive range of motion to about 60 degrees flexion, 60 degrees abduction. She will not push off with the arm for six weeks. The patient will likely go to prison. She will have 24 hours of IV antibiotics postoperative.
[2023-09-29] MEDS: MORPHINE SULFATE 2 MG INJ IV PRN ×2 (15:33→21:55)
[2023-09-29] MEDS: Sodium Chloride 0.9% 1000 ML 1,000 ML IV SCH ×2 (15:36→16:21)
[2023-09-29] MEDS: Oxy-IR 5 MG PO PRN (17:25)
[2023-09-29] MEDS: Docusate Sodium 100 MG PO PRN (17:25)
[2023-09-29] MEDS ORDERED: APRESOLINE 20 MG/ML INJ IV PRN (17:45)
[2023-09-29] MEDS: CEFAZOLIN 2 GM-D5W BAG** 2 GM/50 ML ML IV SCH (20:05)
[2023-09-29] MEDS: ZOCOR 20MG PO SCH (21:39)
[2023-09-29] MEDS ORDERED: HEPARIN 5000 UNITS/0.5 ML (HIGH RISK MED) SQ SCH (22:00)
[2023-09-30] MEDS: MORPHINE SULFATE 2 MG INJ IV PRN ×2 (00:49→04:11)
[2023-09-30] MEDS: Oxy-IR 5 MG PO PRN ×2 (02:41→07:52)
--- NOTE | 2023-09-30 05:10 | PCM.NOTE ---
Date and Time: 09/30/23 0508 Subjective Assessment: Ms. Bangura is an 84 year old female with a pmhx of CAD, HLD, HTN, GERD, and CKD who presented to ED 09/27/23 after a fall at home. CR right clavicle/humerus/shoulder showing mildly displaced and comminuted humeral head/neck fracture and inferior humeral head subluxation> CT upper extremity demonstrating comminuted and displaced fracture humeral head/neck and probable tricep strain. Right ankle/knee xray with no acute findings. CT head with no acute findings. Ortho consulted, plan for surgical intervention 09/29/23. 09/29: Met with patient and daughter at bedside. PODS#1 of right reverse shoulder replacement. ASA has been continued. Patient endorses continued right shoulder/arm pain with 8/10 on numerical pain scale. Plan to increase pain medications. Patient to discharge to rehab, precert pending. Denies fever,cough, sob, cp, abdominal pain, [place], dizziness, N/V/D. - Review of Systems Constitutional: No Symptoms Eyes: No Symptoms Ears, Nose, & Throat: No Symptoms Respiratory: No Symptoms Cardiac: No Symptoms Abdominal/Gastrointestinal: No Symptoms Genitourinary Symptoms: No Symptoms Musculoskeletal: Joint Pain (right shoulder/arm/knee) Neurological: No Symptoms Psychological: No Symptoms Endocrine: No Symptoms Hematologic/Lymphatic: No Symptoms Immunological/Allergic: No Symptoms Objective Exam General Appearance: no apparent distress Neurologic Exam: alert, oriented x 3, cooperative Skin Exam: normal color Wound Assessment: Skin/Wound Assessment Wound/Incision Assessment Start: 09/28/23 20:03 Text: Status: Active Freq: Q6H Protocol: Document 09/30/23 02:00 [facility] (Rec: 09/30/23 02:14 [facility] [id number]) Wound/Incision Assessment Right Shoulder Wound Assessment Shift Assessment Wound Type Incision Wound Stage Non Pressure Wound Dressing Status Dry & Intact,Drainage circled Drainage Amount None Drainage Odor None/Absent Primary Dressing Aquacel Dressing Comment Post-surgical R. Reverse Total Shoulder. Aquacel dressing. C /D/I. 2cm shadowing now present on dressing Eye Exam: PERRL Ears, Nose, Throat Exam: normal ENT inspection Neck Exam: normal inspection Lymphatic Exam: adenopathy Respiratory Exam: normal breath sounds, lungs clear Cardiovascular Exam: regular rate/rhythm, normal heart sounds Gastrointestinal/Abdomen Exam: soft, normal bowel sounds Extremity Exam: limited range of motion (to right shoulder PODS# right reverse shoulder replacement, with surgical incison covered with dressing. CDI no surrounding erythema/streaking) Back Exam: normal inspection Pelvic Exam: deferred Rectal Exam: deferred OBJECTIVE DATA Vital Signs: Vital Signs - 24 hr Temp Pulse Resp BP BP Pulse Ox 09/30/23 05:00 81 16 143/60 98 09/30/23 04:37 75 16 146/56 98 09/30/23 04:30 76 16 145/54 98 09/30/23 04:00 75 09/30/23 03:26 80 17 162/57 99 09/30/23 02:33 74 15 170/64 98 09/30/23 02:12 75 13 169/65 98 09/30/23 01:57 77 17 203/59 98 09/30/23 01:49 75 19 203/59 98 09/30/23 01:17 78 20 182/76 99 09/30/23 00:43 73 19 228/88 98 09/30/23 00:07 82 23 207/64 98 09/30/23 00:06 77 22 98 09/30/23 00:00 77 17 98 09/29/23 23:50 77 17 98 09/29/23 23:40 77 24 98 09/29/23 23:31 78 18 176/54 98 09/29/23 23:30 78 18 160/97 98 09/29/23 23:20 78 21 160/97 98 09/29/23 23:10 79 15 99 09/29/23 23:00 77 16 177/86 97 09/29/23 22:50 78 17 98 09/29/23 22:40 76 15 167/55 99 09/29/23 22:30 84 15 98 09/29/23 22:20 77 17 99 09/29/23 22:10 77 20 99 09/29/23 22:00 74 25 H 174/57 98 09/29/23 21:50 80 15 98 09/29/23 21:40 80 16 97 09/29/23 21:30 84 23 152/60 96 09/29/23 21:20 80 18 98 09/29/23 21:10 76 16 98 09/29/23 21:00 77 15 179/57 98 09/29/23 20:50 76 14 98 09/29/23 20:40 76 15 98 09/29/23 20:30 76 17 177/58 97 09/29/23 20:20 78 21 177/58 98 09/29/23 20:10 82 18 98 09/29/23 20:00 77 14 98 09/29/23 19:50 78 14 98 09/29/23 19:40 78 15 97 09/29/23 19:30 78 15 98 09/29/23 19:20 78 14 97 09/29/23 19:10 79 16 163/50 97 09/29/23 19:00 82 20 149/50 97 09/29/23 18:50 79 19 96 09/29/23 18:40 79 15 174/56 97 09/29/23 18:30 82 18 97 09/29/23 18:20 79 17 96 09/29/23 18:10 83 27 H 97 09/29/23 18:00 97.8 F 79 16 191/64 96 09/29/23 17:50 97.2 F 79 25 H 196/66 99 09/29/23 17:40 78 17 98 09/29/23 17:30 78 19 98 09/29/23 17:20 97.8 F 78 18 180/66 98 09/29/23 17:10 73 13 98 09/29/23 17:00 97.6 F 73 14 177/59 97 09/29/23 16:50 73 14 97 09/29/23 16:40 74 17 96 09/29/23 16:30 97.6 F 72 16 191/65 97 09/29/23 16:20 72 14 96 09/29/23 16:10 75 25 H 95 09/29/23 16:00 97.7 F 71 17 180/56 97 02 15:50 67 16 178/61 96 09/29/23 15:40 80 17 171/59 99 02 15:30 66 18 182/63 99 09/29/23 15:20 68 18 99 02 15:10 70 24 190/68 96 02 15:05 98 09/29/23 15:00 66 18 201/69 99 09/29/23 14:50 69 18 99 09/29/23 14:45 68 20 191/65 98 02/02/24 11:51 97.5 F 71 15 158/72 92 L 09/29/23 08:00 97.5 F 71 15 158/72 92 L Pain Assessment - Last Documented Pain Intensity 4 Pain Scale Used 0-10 Pain Scale Intake and Output: Intake & Output 09/27/23 09/28/23 09/29/23 09/30/23 11:59 11:59 11:59 11:59 Intake Total 100 1442 321 Output Total 800 700 Balance 100 642 -379 Weight 73.9 kg 73.9 kg Lab Results: Lab Results-Last 24 Hours 09/29/23 09/29/23 Range/Units 07:35 07:35 WBC 7.6 (4.0-10.5) x10^3/uL RBC 2.84 L (4.1-5.4) x10^6/uL Hgb 8.5 L (12.0-16.0) g/dL Hct 26.8 L (35-47) % MCV 94.4 (78-100) fL MCH 29.9 (26-32) pg MCHC 31.7 L (32-36) g/dL RDW 11.9 (11.5-14.0) % Plt Count 171 (150-450) x10^3/uL MPV 9.0 (7.5-11.0) fL Gran % 64.9 (36.0-66.0) % Immature Gran % (Auto) 0.4 (0.00-0.4) % Nucleat RBC Rel Count 0.0 (0.00-0.1) % Eos # (Auto) 0.15 (0-0.5) x10^3/uL Immature Gran # (Auto) 0.03 (0.00-0.03) x10^3u/L Absolute Lymphs (auto) 1.56 (1.0-4.6) x10^3/uL Absolute Monos (auto) 0.89 (0.0-1.3) x10^3/uL Absolute Nucleated RBC 0.00 (0.00-0.01) x10^3u/L Lymphocytes % 20.6 L (24.0-44.0) % Monocytes % 11.7 (0.0-12.0) % Eosinophils % 2.0 (0.00-5.0) % Basophils % 0.4 (0.0-0.4) % Absolute Granulocytes 4.93 (1.4-6.9) x10^3/uL Basophils # 0.03 (0-0.4) x10^3/uL Sodium 130 L (137-145) mmol/L Potassium 4.4 (3.5-5.1) mmol/L Chloride 108 H (98-107) mmol/L Carbon Dioxide 19 L (22-30) mmol/L Anion Gap 7.9 (5-15) MEQ/L BUN 19 H (7-17) mg/dL Creatinine 1.28 H (0.52-1.04) mg/dL Estimated GFR 40.8 ML/MIN Glucose 129 H (74-106) mg/dL Calcium 8.3 L (8.4-10.2) mg/dL Total Bilirubin 0.50 (0.2-1.3) mg/dL AST 19 (14-36) U/L ALT 10 (0-35) U/L Alkaline Phosphatase 63 (38-126) U/L Serum Total Protein 5.7 L (6.3-8.2) g/dL Albumin 2.8 L (3.5-5.0) g/dL Radiology Exams: Radiology Procedures Category Date Time Status KNEE (3 VIEWS) Routine Exams 09/28/23 08:51 Completed KNEE (3 VIEWS) Routine Exams 09/28/23 08:51 Completed PULMONARY PERF VENTILATION [NUCMED] Stat Exams 09/29/23 16:52 Ordered SHOULDER Routine Exams 09/29/23 13:10 Completed Multi-Disciplinary Progress Notes: Multi-Disciplinary Progress Notes 09/29/23 12:00 (created 09/29/23 12:46) Case Management Note by Patti Fay Addendum entered by Patti Fay 09/29/23 12:50: PATIENT MUST HAVE PRECERT FROM INSURANCE PRIOR TO DISMISSAL TO ANY SNF FACILITY Original Note: FAMILY HAS DISCUSSED REHAB OPTIONS. IF PATIENT NEEDS REHAB AFTER OR, THEY WOULD LIKE PATIENT TO GO TO [facility] . REFERRAL SENT PER [facility]. JONAHRR PAPERWORK COMPLETE- NO LEVEL II REQUIRED. COPY FAXED WITH REFERRAL AND GIV[facility] TO [facility] AND CLINICK TO PLACE ON CHART AFTER OR. FAMILY AND [employer] ENGINEER[employer] TEAM SUPERVISOR AWARE THAT THIS REQUIRES APPROVAL. IF PATIENT DOES WELL PRIOR TO RECEIVING APPROVAL AND WISHES TO RETURN HOME INSTEAD [facility] HAS BEEN SET UP WELL. Initialized on 09/29/23 12:46 - END OF NOTE 09/29/23 10:19 Case Management Note by Patti Fay Addendum entered by Patti Fay 09/29/23 10:21: [facility] WELL IF PATIENT DOES WELL OVER THE WEEKEND AND FAMILY FEELS LIKE THEY CAN SAFELY CARE FOR HER WITH [facility]. Original Note: PATIENT IN SURGERY. S/W FAMILY- THEY FEEL LIKE PATIENT WILL LIKELY NEED A SHORT TERM REHAB STAY AFTER HER STAY HERE AT [facility]. THEY WERE GIVEN LIST OF [place] FACILITIES TO DISCUSS. WILL TRY TO GET PROCESS STARTED TODAY Initialized on 09/29/23 10:19 - END OF NOTE Assessment/Plan (1) Closed fracture of right proximal humerus Current Visit: Yes Status: Acute Assessment & Plan: -Ortho consulted, plans for surgical intervention 09/29/23 right reverse shoulder replacement. -Pain control -Cardiology has cleared patient 09/30: -ASA resumed per Ortho -percocet 7.5mg q4hprn Code(s): S42.201A - UNSP FRACTURE OF UPPER END OF RIGHT HUMERUS, INIT (2) CAD (coronary artery disease) Current Visit: Yes Status: Acute Assessment & Plan: -noted, continue appropriate home medications Code(s): I25.10 - ATHSCL HEART DISEASE OF [place] CORONARY ARTERY W/O ANG PCTRS (3) Contusion of knee, left Current Visit: Yes Status: Acute Assessment & Plan: -x-ray right and left knee with no acute findings Code(s): S80.02XA - CONTUSION OF LEFT KNEE, INITIAL ENCOUNTER (4) Fracture of humeral head, right, closed Current Visit: Yes Status: Acute Assessment & Plan: -see above Code(s): S42.291A - OTH DISP FX OF UPPER END OF RIGHT HUMERUS, INIT FOR CLOS FX (5) Near syncope Current Visit: Yes Status: Acute Assessment & Plan: -secondary for morphine given in ED, no further episodes (6) Chronic renal disease, stage 4, severely decreased glomerular filtration rate (GFR) between 15-29 mL/min/1.73 square meter Current Visit: No Status: Acute Assessment & Plan: -Noted, continue to monitor renal/lytes daily, patient is at her baseline creat -hold triamterene/hctz/lisinopril -avoid NSAIDS, ROCKY, ARBS Code(s): N18.4 - CHRONIC KIDNEY DISEASE, STAGE 4 (SEVERE) (7) Hypertension Current Visit: Yes Status: Acute Assessment & Plan: -stable, hold lisinopril, triamterene/hctz -Increase amlodipine to 5mg Code(s): I10 - ESSENTIAL (PRIMARY) HYPERTENSION (8) Fall Current Visit: Yes Status: Acute Assessment & Plan: -ground level -PT/ot eval once able Code(s): W19.XXXA - UNSPECIFIED FALL, INITIAL ENCOUNTER (9) Mild sprain of right ankle Current Visit: Yes Status: Acute Assessment & Plan: -reviewed ortho notes, "patient may weight-bear as tolerated on the right ankle and work on ROM and strengthening. A cane or hemiwalker for the left upper extremity." Code(s): S93.401A - SPRAIN OF UNSPECIFIED LIGAMENT OF RIGHT ANKLE, INIT ENCNTR (10) Hyponatremia Current Visit: Yes Status: Acute Assessment & Plan: -Hold triamterene/HCTZ (11)Elevated DDimer -Most likely secondary to trauma -Unable to perform CTA with low GFR -Consider VQ scan (11) UTI -Ucult with gram with ecoli, sensitive to levoquin, will initiate VTE: ASA per ortho PPI: protonix Dispo: 2-3 days Code(s): S42.201A - UNSP FRACTURE OF UPPER END OF RIGHT HUMERUS, INIT (2) CAD (coronary artery disease) Current Visit: Yes Status: Acute Code(s): I25.10 - ATHSCL HEART DISEASE OF [place] CORONARY ARTERY W/O ANG PCTRS (3) Contusion of knee, left Current Visit: Yes Status: Acute Code(s): S80.02XA - CONTUSION OF LEFT KNEE, INITIAL ENCOUNTER (4) Fracture of humeral head, right, closed Current Visit: Yes Status: Acute Code(s): S42.291A - OTH DISP FX OF UPPER END OF RIGHT HUMERUS, INIT FOR CLOS FX (5) Near syncope Current Visit: Yes Status: Acute (6) Chronic renal disease, stage 4, severely decreased glomerular filtration rate (GFR) between 15-29 mL/min/1.73 square meter Current Visit: No Status: Acute Code(s): N18.4 - CHRONIC KIDNEY DISEASE, STAGE 4 (SEVERE) (7) Hypertension Current Visit: Yes Status: Acute Code(s): I10 - ESSENTIAL (PRIMARY) HYPERTENSION (8) Fall Current Visit: Yes Status: Acute Code(s): W19.XXXA - UNSPECIFIED FALL, INITIAL ENCOUNTER (9) Mild sprain of right ankle Current Visit: Yes Status: Acute Code(s): S93.401A - SPRAIN OF UNSPECIFIED LIGAMENT OF RIGHT ANKLE, INIT ENCNTR (10) Hyponatremia Current Visit: Yes Status: Acute Code(s): E87.1 - HYPO-OSMOLALITY AND HYPONATREMIA (11) UTI (urinary tract infection) Current Visit: Yes Status: Acute Code(s): N39.0 - URINARY TRACT INFECTION, SITE NOT SPECIFIED
[2023-09-30 06:12] LABS: Absolute Neutrophil Ct (ANC) 8.94 x10^3/uL (1.4-6.9); BASOPHIL % 0.2 % (0.0-0.4); Basophil (Absolute #) 0.02 x10^3/uL (0-0.4); Eosinophil (Absolute #) 0 x10^3/uL (0-0.5); Hematocrit 22.9 % (35-47); Hemoglobin 7.5 g/dL (12.0-16.0); IMMATURE GRAN # 0.05 x10^3u/L (0.00-0.03); IMMATURE GRAN % 0.4 % (0.00-0.4); Lymphocyte (Absolute #) 1.66 x10^3/uL (1.0-4.6); Lymphocytes % 13.6 % (24.0-44.0); Mean Corpuscular Hemoglobin 30.1 pg (26-32); Mean Corpuscular Hgb Concent. 32.8 g/dL (32-36); Mean Platelet Volume 9.3 fL (7.5-11.0); Monocyte (Absolute #) 1.53 x10^3/uL (0.0-1.3); Monocytes % 12.5 % (0.0-12.0); Neutrophil % 73.3 % (36.0-66.0); Platelet Count 186 x10^3/uL (150-450); Red Blood Count 2.49 x10^6/uL (4.1-5.4); Red Cell Distribution Width 11.8 % (11.5-14.0); White Blood Count 12.2 x10^3/uL (4.0-10.5)
[2023-09-30 06:38] LABS: Slide Review 1 YES
[2023-09-30 06:39] LABS: ALBUMIN 2.8 g/dL (3.5-5.0); ANION GAP 8.3 MEQ/L (5-15); BILIRUBIN,TOTAL 0.6 mg/dL (0.2-1.3); Calcium 8.5 mg/dL (8.4-10.2); Creatinine 1 1.1 mg/dL (0.52-1.04); EST GLOMERULAR FILTRATION RATE 48.9 ML/MIN; Potassium 4.2 mmol/L (3.5-5.1); Total Protein 5.7 g/dL (6.3-8.2)
[2023-09-30] MEDS: Sodium Chloride 0.9% 1000 ML 1,000 ML IV SCH ×2 (07:43→12:24)
[2023-09-30] MEDS: CEFAZOLIN 2 GM-D5W BAG** 2 GM/50 ML ML IV SCH (07:45)
[2023-09-30] MEDS ORDERED: PERCOCET TABLET 5/325MG PO PRN (09:37)
[2023-09-30] MEDS: ECOTRIN 81 MG PO SCH (09:41)
[2023-09-30] MEDS: Pepcid 20 MG PO SCH ×2 (09:41→22:19)
[2023-09-30] MEDS: SYNTHROID 50 MCG PO SCH (09:41)
[2023-09-30] MEDS: NORVASC 5 MG PO SCH (09:41)
[2023-09-30] MEDS: Protonix 40MG Tablet PO SCH ×2 (09:41→22:19)
[2023-09-30] MEDS ORDERED: Maxzide-25MG Tablet PO SCH (10:00)
[2023-09-30] MEDS: PERCOCET TABLET 5/325MG PO PRN ×2 (11:41→19:48)
[2023-09-30] MEDS: TYLENOL EXTRA STRENGTH 500 MG PO PRN (14:00)
[2023-09-30] MEDS: ATARAX 25 MG PO PRN (14:01)
[2023-09-30] MEDS: Docusate Sodium 100 MG PO PRN (14:01)
[2023-09-30 17:01] LABS: Hematocrit 24.5 % (35-47); Hemoglobin 7.8 g/dL (12.0-16.0)
[2023-09-30] MEDS: ZOCOR 20MG PO SCH (22:19)
[2023-10-01] MEDS: PERCOCET TABLET 5/325MG PO PRN ×4 (00:53→22:16)
--- NOTE | 2023-10-01 05:06 | PCM.NOTE ---
Date and Time: 10/01/23 0505 Subjective Assessment: Ms. Bangura is an 84 year old female with a pmhx of CAD, HLD, HTN, GERD, and CKD who presented to ED 09/27/23 after a fall at home. CR right clavicle/humerus/shoulder showing mildly displaced and comminuted humeral head/neck fracture and inferior humeral head subluxation> CT upper extremity demonstrating comminuted and displaced fracture humeral head/neck and probable tricep strain. Right ankle/knee xray with no acute findings. CT head with no acute findings. Ortho consulted, plan for surgical intervention 09/29/23. 10/01/23: Met with patient bedside. Endorses 6/10 pain to right shoulder. Discussed lab findings with Hgb at 6.5 this morning. Plan for transfusion with 2 units LPRBCs. Plan is for discharge to SNF for rehab tomorrow if accepted. - Review of Systems Constitutional: No Symptoms Eyes: No Symptoms Ears, Nose, & Throat: No Symptoms Respiratory: No Symptoms Cardiac: No Symptoms Abdominal/Gastrointestinal: No Symptoms Genitourinary Symptoms: No Symptoms Musculoskeletal: Joint Pain (right shoulder) Skin: No Symptoms Neurological: No Symptoms Psychological: No Symptoms Endocrine: No Symptoms Hematologic/Lymphatic: Anemia Immunological/Allergic: No Symptoms Objective Exam General Appearance: no apparent distress Neurologic Exam: alert, oriented x 3, cooperative Skin Exam: normal color Wound Assessment: Skin/Wound Assessment Wound/Incision Assessment Start: 09/28/23 20:03 Text: Status: Active Freq: Q6H Protocol: Document 09/30/23 20:00 LB (Rec: 10/01/23 00:26 LB [id number]) Wound/Incision Assessment Right Shoulder Wound Assessment Shift Assessment Wound Type Incision Wound Stage Non Pressure Wound Dressing Status Dry & Intact,Drainage circled Drainage Amount None Drainage Odor None/Absent Primary Dressing Aquacel Dressing Comment Post-surgical R. Reverse Total Shoulder. Aquacel dressing intact shadowing outlined, shadowing and edema noted. remains true Wound Photo Photo Taken No Eye Exam: PERRL Ears, Nose, Throat Exam: normal ENT inspection Neck Exam: normal inspection Respiratory Exam: normal breath sounds, lungs clear Cardiovascular Exam: regular rate/rhythm, normal heart sounds Gastrointestinal/Abdomen Exam: soft, normal bowel sounds Extremity Exam: limited range of motion (right shoulder/ with surgical incision, covered in dressing shadow drainage noted), other Back Exam: normal inspection Pelvic Exam: deferred Rectal Exam: deferred OBJECTIVE DATA Vital Signs: Vital Signs - 24 hr Temp Pulse Resp BP BP Pulse Ox 10/01/23 03:38 97.0 F 75 17 146/64 96 09/30/23 23:47 97.8 F 79 18 128/60 96 09/30/23 19:39 97.8 F 68 18 131/56 94 L 09/30/23 18:25 94 L 09/30/23 16:00 97.7 F 78 16 132/56 96 09/30/23 11:59 70 09/30/23 11:29 70 20 130/52 93 L 09/30/23 11:00 97.6 F 73 23 109/49 93 L 09/30/23 10:09 72 16 152/61 94 L 09/30/23 09:45 72 18 154/62 95 09/30/23 08:26 78 28 H 137/72 96 09/30/23 08:00 78 09/30/23 07:58 96 09/30/23 07:57 99 09/30/23 07:18 98.5 F 72 15 160/61 98 09/30/23 07:09 72 18 160/61 98 09/30/23 07:00 77 18 148/73 99 09/30/23 06:00 98.4 F 73 16 143/62 98 Pain Assessment - Last Documented Pain Intensity 10 Pain Scale Used 0-10 Pain Scale Intake and Output: Intake & Output 09/28/23 09/29/23 09/30/23 10/01/23 11:59 11:59 11:59 11:59 Intake Total 100 2194 311 9612 Output Total 800 1025 700 Balance 100 642 -324 1169 Weight 73.9 kg 73.9 kg Lab Results: Lab Results-Last 24 Hours 09/30/23 09/30/23 09/30/23 Range/Units 06:10 06:10 16:55 WBC 12.2 H (4.0-10.5) x10^3/uL RBC 2.49 L (4.1-5.4) x10^6/uL Hgb 7.5 L 7.8 L (12.0-16.0) g/dL Hct 22.9 L 24.5 L (35-47) % MCV 92.0 (78-100) fL MCH 30.1 (26-32) pg MCHC 32.8 (32-36) g/dL RDW 11.8 (11.5-14.0) % Plt Count 186 (150-450) x10^3/uL MPV 9.3 (7.5-11.0) fL Gran % 73.3 H (36.0-66.0) % Immature Gran % (Auto) 0.4 (0.00-0.4) % Nucleat RBC Rel Count 0.0 (0.00-0.1) % Eos # (Auto) 0 (0-0.5) x10^3/uL Immature Gran # (Auto) 0.05 H (0.00-0.03) x10^3u/L Absolute Lymphs (auto) 1.66 (1.0-4.6) x10^3/uL Absolute Monos (auto) 1.53 H (0.0-1.3) x10^3/uL Absolute Nucleated RBC 0.00 (0.00-0.01) x10^3u/L Lymphocytes % 13.6 L (24.0-44.0) % Monocytes % 12.5 H (0.0-12.0) % Eosinophils % 0.0 (0.00-5.0) % Basophils % 0.2 (0.0-0.4) % Absolute Granulocytes 8.94 H (1.4-6.9) x10^3/uL Basophils # 0.02 (0-0.4) x10^3/uL Sodium 127 L (137-145) mmol/L Potassium 4.2 (3.5-5.1) mmol/L Chloride 102 (98-107) mmol/L Carbon Dioxide 21 L (22-30) mmol/L Anion Gap 8.3 (5-15) MEQ/L BUN 19 H (7-17) mg/dL Creatinine 1.10 H (0.52-1.04) mg/dL Estimated GFR 48.9 ML/MIN Glucose 120 H (74-106) mg/dL Calcium 8.5 (8.4-10.2) mg/dL Total Bilirubin 0.60 (0.2-1.3) mg/dL AST 24 (14-36) U/L ALT 10 (0-35) U/L Alkaline Phosphatase 55 (38-126) U/L Serum Total Protein 5.7 L (6.3-8.2) g/dL Albumin 2.8 L (3.5-5.0) g/dL Slides for Path Review YES Radiology Exams: Radiology Procedures Category Date Time Status PULMONARY PERF VENTILATION [NUCMED] Stat Exams 09/30/23 12:19 Ordered SHOULDER Routine Exams 09/29/23 13:10 Completed Assessment/Plan (1) Closed fracture of right proximal humerus Current Visit: Yes Status: Acute Assessment & Plan: -Ortho consulted, plans for surgical intervention 09/29/23 right reverse shoulder replacement. -Pain control -Cardiology has cleared patient 09/30: -ASA resumed per Ortho -percocet 7.5mg q4hprn 10/01: -PODs#2 -surgical bandage noted with shadow drainage, hgb at 6.5, will replace with 2units, contact surgery regarding blood loss s/p surgery -Ortho note reviewed "Instructed patient and passive range of motion of her shoulder and elbow and demonstrated to her Patient may remove dressing postop day 5 and shower then May transfer to [facility] May remove cande at [facility] on October 09 Physical therapy with passiveFlexion to 45 degrees, Passive abduction to 45 degrees, passive external rotation to 30 degrees,Rotation to abdomen.Full range of motion of elbow active and passive. Code(s): S42.201A - UNSP FRACTURE OF UPPER END OF RIGHT HUMERUS, INIT (2) CAD (coronary artery disease) Current Visit: Yes Status: Acute Assessment & Plan: -noted, continue appropriate home medications Code(s): I25.10 - ATHSCL HEART DISEASE OF [place] CORONARY ARTERY W/O ANG PCTRS (3) Contusion of knee, left Current Visit: Yes Status: Acute Assessment & Plan: -x-ray right and left knee with no acute findings Code(s): S80.02XA - CONTUSION OF LEFT KNEE, INITIAL ENCOUNTER (4) Fracture of humeral head, right, closed Current Visit: Yes Status: Acute Assessment & Plan: -see above Code(s): S42.291A - OTH DISP FX OF UPPER END OF RIGHT HUMERUS, INIT FOR CLOS FX (5) Near syncope Current Visit: Yes Status: Acute Assessment & Plan: -secondary for morphine given in ED, no further episodes (6) Chronic renal disease, stage 4, severely decreased glomerular filtration rate (GFR) between 15-29 mL/min/1.73 square meter Current Visit: No Status: Acute Assessment & Plan: -Noted, continue to monitor renal/lytes daily, patient is at her baseline creat -hold triamterene/hctz/lisinopril -avoid NSAIDS, ROCKY, ARBS -creat improving at 1.25, of note she did have CT 09/30/23 - Code(s): N18.4 - CHRONIC KIDNEY DISEASE, STAGE 4 (SEVERE) (7) Hypertension Current Visit: Yes Status: Acute Assessment & Plan: -stable, hold lisinopril, triamterene/hctz -Increase amlodipine to 5mg Code(s): I10 - ESSENTIAL (PRIMARY) HYPERTENSION (8) Fall Current Visit: Yes Status: Acute Assessment & Plan: -ground level -PT/ot eval once able 10/01: -Plan for d/c to rehab when accepted/precert pending Code(s): W19.XXXA - UNSPECIFIED FALL, INITIAL ENCOUNTER (9) Mild sprain of right ankle Current Visit: Yes Status: Acute Assessment & Plan: -reviewed ortho notes, "patient may weight-bear as tolerated on the right ankle and work on ROM and strengthening. A cane or hemiwalker for the left upper extremity." Code(s): S93.401A - SPRAIN OF UNSPECIFIED LIGAMENT OF RIGHT ANKLE, INIT ENCNTR (10) Hyponatremia Current Visit: Yes Status: Acute Assessment & Plan: -Hold triamterene/HCTZ 10/01: -improving, dc fluids/ fluid restriction (11)Elevated DDimer -Most likely secondary to trauma -Unable to perform CTA with low GFR -Consider VQ scan (11) UTI -Ucult with gram with enterococcus faecalis, sensitive to levoquin, will initiate VTE: ASA per ortho PPI: protonix Code(s): S42.201A - UNSP FRACTURE OF UPPER END OF RIGHT HUMERUS, INIT (2) CAD (coronary artery disease) Current Visit: Yes Status: Acute Code(s): I25.10 - ATHSCL HEART DISEASE OF [place] CORONARY ARTERY W/O ANG PCTRS (3) Contusion of knee, left Current Visit: Yes Status: Acute Code(s): S80.02XA - CONTUSION OF LEFT KNEE, INITIAL ENCOUNTER (4) Fracture of humeral head, right, closed Current Visit: Yes Status: Acute Code(s): S42.291A - OTH DISP FX OF UPPER END OF RIGHT HUMERUS, INIT FOR CLOS FX (5) Near syncope Current Visit: Yes Status: Acute (6) Chronic renal disease, stage 4, severely decreased glomerular filtration rate (GFR) between 15-29 mL/min/1.73 square meter Current Visit: No Status: Acute Code(s): N18.4 - CHRONIC KIDNEY DISEASE, STAGE 4 (SEVERE) (7) Hypertension Current Visit: Yes Status: Acute Code(s): I10 - ESSENTIAL (PRIMARY) HYPERTENSION (8) Fall Current Visit: Yes Status: Acute Code(s): W19.XXXA - UNSPECIFIED FALL, INITIAL ENCOUNTER (9) Mild sprain of right ankle Current Visit: Yes Status: Acute Code(s): S93.401A - SPRAIN OF UNSPECIFIED LIGAMENT OF RIGHT ANKLE, INIT ENCNTR (10) Hyponatremia Current Visit: Yes Status: Acute Code(s): E87.1 - HYPO-OSMOLALITY AND HYPONATREMIA (11) UTI (urinary tract infection) Current Visit: Yes Status: Acute Code(s): N39.0 - URINARY TRACT INFECTION, SITE NOT SPECIFIED (12) Anemia Current Visit: Yes Status: Acute Code(s): D64.9 - ANEMIA, UNSPECIFIED
[2023-10-01 05:54] LABS: Absolute Neutrophil Ct (ANC) 5.22 x10^3/uL (1.4-6.9); BASOPHIL % 0.6 % (0.0-0.4); Basophil (Absolute #) 0.05 x10^3/uL (0-0.4); Eosinophil % 2.9 % (0.00-5.0); Eosinophil (Absolute #) 0.25 x10^3/uL (0-0.5); Hematocrit 20.7 % (35-47); IMMATURE GRAN # 0.03 x10^3u/L (0.00-0.03); IMMATURE GRAN % 0.3 % (0.00-0.4); Lymphocyte (Absolute #) 1.89 x10^3/uL (1.0-4.6); Lymphocytes % 21.9 % (24.0-44.0); Mean Corpuscular Hemoglobin 29.8 pg (26-32); Mean Corpuscular Hgb Concent. 31.4 g/dL (32-36); Mean Platelet Volume 10.1 fL (7.5-11.0); Monocyte (Absolute #) 1.19 x10^3/uL (0.0-1.3); Monocytes % 13.8 % (0.0-12.0); Neutrophil % 60.5 % (36.0-66.0); Platelet Count 163 x10^3/uL (150-450); Red Blood Count 2.18 x10^6/uL (4.1-5.4); Red Cell Distribution Width 12.3 % (11.5-14.0); White Blood Count 8.6 x10^3/uL (4.0-10.5)
[2023-10-01 06:19] LABS: ALBUMIN 2.3 g/dL (3.5-5.0); BILIRUBIN,TOTAL 0.6 mg/dL (0.2-1.3); Calcium 7.9 mg/dL (8.4-10.2); Creatinine 1 1.25 mg/dL (0.52-1.04); Potassium 3.7 mmol/L (3.5-5.1)
[2023-10-01 06:30] LABS: Hemoglobin 6.5 g/dL (12.0-16.0)
[2023-10-01] MEDS: ECOTRIN 81 MG PO SCH (08:47)
[2023-10-01] MEDS: SYNTHROID 50 MCG PO SCH (08:47)
[2023-10-01] MEDS: Protonix 40MG Tablet PO SCH ×2 (08:47→22:17)
[2023-10-01] MEDS: NORVASC 5 MG PO SCH (08:47)
[2023-10-01] MEDS: Pepcid 20 MG PO SCH ×2 (08:48→22:17)
[2023-10-01] MEDS: ATARAX 25 MG PO PRN (09:06)
[2023-10-01] MEDS: Docusate Sodium 100 MG PO PRN (09:06)
[2023-10-01] MEDS ORDERED: Miralax Powder 17GM PACKET PO PRN (09:08)
[2023-10-01] MEDS ORDERED: Levofloxacin 500MG/100ML D5W 500 MG/100 ML BAG IV SCH (10:00)
[2023-10-01] MEDS: Sodium Chloride 0.9% 1000 ML 1,000 ML IV SCH (10:06)
--- NOTE | 2023-10-01 10:48 | PCM.NOTE ---
ORTHO Progress Note - Progress Note ORTHO Progress Note: S:8/10 pain postop day 2 from right proximal humeralFracture with reverse shoulderHas been getting out of bed with assistance to urinate. Walked from the ICU to her currentRoom O: Alert and orient x 3, sitting up in bed Family with her. Dressing clean dry and intact 5/5 radial median and ulnar nerve function with good sensation all digits Hemoglobin 6.5 Postop x-ray shows good position of the reverse shoulder replacement A: Doing well from right reverse shoulder arthroplastyPostop day #2 Plan: Patient getting transfusion of 2 units of blood by order of hospitalist Instructed patient and passive range of motion of her shoulder and elbow and demonstrated to her Patient may remove dressing postop day 5 and shower then May transfer to [facility] tomorrow May remove cande at [facility] on October 09 Physical therapy with passiveFlexion to 45 degrees, Passive abduction to 45 degrees, passive external rotation to 30 degrees,Rotation to abdomen.Full range of motion of elbow active and passive Return to Dr. Sierra October 19 Wound check
[2023-10-01] MEDS ORDERED: celeBREX 100 MG PO SCH (13:00)
[2023-10-01] MEDS ORDERED: celeBREX 100 MG PO PRN (13:00)
[2023-10-01 15:17] LABS: Hematocrit 30.1 % (35-47)
[2023-10-01 15:18] LABS: Hemoglobin 9.8 g/dL (12.0-16.0)
[2023-10-01] MEDS: TYLENOL EXTRA STRENGTH 500 MG PO PRN (15:32)
[2023-10-01 20:29] LABS: Hematocrit 26.8 % (35-47); Hemoglobin 8.8 g/dL (12.0-16.0)
[2023-10-01] MEDS: ZOCOR 20MG PO SCH (22:17)
[2023-10-02 03:36] LABS: Absolute Neutrophil Ct (ANC) 5.11 x10^3/uL (1.4-6.9); BASOPHIL % 0.7 % (0.0-0.4); Basophil (Absolute #) 0.06 x10^3/uL (0-0.4); Eosinophil % 5.4 % (0.00-5.0); Eosinophil (Absolute #) 0.47 x10^3/uL (0-0.5); Hemoglobin 8.9 g/dL (12.0-16.0); IMMATURE GRAN # 0.04 x10^3u/L (0.00-0.03); IMMATURE GRAN % 0.5 % (0.00-0.4); Lymphocyte (Absolute #) 1.99 x10^3/uL (1.0-4.6); Lymphocytes % 23.1 % (24.0-44.0); Mean Cell Volume 91.5 fL (78-100); Mean Corpuscular Hemoglobin 30.2 pg (26-32); Mean Platelet Volume 9.3 fL (7.5-11.0); Monocyte (Absolute #) 0.96 x10^3/uL (0.0-1.3); Monocytes % 11.1 % (0.0-12.0); Neutrophil % 59.2 % (36.0-66.0); Platelet Count 189 x10^3/uL (150-450); Red Blood Count 2.95 x10^6/uL (4.1-5.4); White Blood Count 8.6 x10^3/uL (4.0-10.5)
[2023-10-02 03:49] LABS: ALBUMIN 2.7 g/dL (3.5-5.0); ANION GAP 7.4 MEQ/L (5-15); BILIRUBIN,TOTAL 0.8 mg/dL (0.2-1.3); Calcium 8.5 mg/dL (8.4-10.2); Creatinine 1 1.7 mg/dL (0.52-1.04); Potassium 4.2 mmol/L (3.5-5.1); Total Protein 5.7 g/dL (6.3-8.2)
--- NOTE | 2023-10-02 05:06 | PCM.NOTE ---
Date and Time: 10/02/23 0504 Subjective Assessment: Ms. Wan is an 88 year old female admitted 09/27/23 with a proximal humeral fracture. Patient underwent right reverse shoulder arthroplasty with Dr. Weiss 09/29/23. During hospital course medical management included acute on chronic KIMBERLYN, with noted improvement, patient now at baseline. Resolving hyponatremia with 2L fluid restriction. Anemia s/p surgical intervention, patient received 1 unit LPRBC with Hgb now stable. Pain control with Percocet. Patient also found to have UTI, culture positive for enterococcus faecalis, treated with levofloxacin. Plan for discharge to rehab. Patient placed on ASA 81mg. 10/02/23: Met with patient bedside. Endorses that her pain in her her right shoulder is improved today, rating zero during interview. Discussed lab findings with patient and Dr. Sierra (ortho), patient received 1 unit LPRBC 10/01/23 with noted improvement to her Hgb, however her hgb did drop one point overnight. Dr. Weiss would like ASA held for two days. Plan for rehab placement, possible discharge tomorrow. Will continue course of levaquin for UTI. <ROSSANA BONILLA - Last Filed: 10/02/23 10:09> Date and Time: 10/03/23 2221 <SONYA JUAREZ - Last Filed: 10/03/23 22:21> - Review of Systems Constitutional: No Symptoms Eyes: No Symptoms Ears, Nose, & Throat: No Symptoms Respiratory: No Symptoms Cardiac: No Symptoms Abdominal/Gastrointestinal: No Symptoms Genitourinary Symptoms: No Symptoms Musculoskeletal: Joint Pain (right shoulder) Skin: No Symptoms Neurological: No Symptoms Psychological: No Symptoms Endocrine: No Symptoms Hematologic/Lymphatic: No Symptoms Immunological/Allergic: No Symptoms <ROSSANA BONILLA - Last Filed: 10/02/23 10:09> Objective Exam General Appearance: no apparent distress Neurologic Exam: alert, oriented x 3, cooperative Skin Exam: normal color Wound Assessment: Skin/Wound Assessment Wound/Incision Assessment Start: 09/28/23 20:03 Text: Status: Active Freq: Q6H Protocol: Document 10/02/23 02:00 LB (Rec: 10/02/23 04:56 LB [id number]) Wound/Incision Assessment Right Shoulder Wound Assessment Shift Assessment Wound Type Incision Wound Stage Non Pressure Wound Dressing Status Drainage circled Drainage Amount None Drainage Odor None/Absent Primary Dressing Aquacel Dressing Comment Post-surgical R. Reverse Total Shoulder. Aquacel dressing intact shadowing outlined, and edema noted. Wound Photo Photo Taken No Eye Exam: PERRL Ears, Nose, Throat Exam: normal ENT inspection Neck Exam: normal inspection Respiratory Exam: normal breath sounds, lungs clear Cardiovascular Exam: regular rate/rhythm, normal heart sounds Gastrointestinal/Abdomen Exam: soft Extremity Exam: limited range of motion, other (right arm in sling, surgical dressing to right shoulder CDI, scattered bruising to BUE) Back Exam: normal inspection Pelvic Exam: deferred Rectal Exam: deferred <ROSSANA BONILLA - Last Filed: 10/02/23 10:09> OBJECTIVE DATA Vital Signs: Vital Signs - 24 hr Temp Pulse Resp BP Pulse Ox 10/02/23 03:56 97.9 F 69 17 132/60 97 10/01/23 23:54 98.2 F 76 19 127/98 98 10/01/23 19:59 97.5 F 66 20 109/51 96 10/01/23 19:43 94 L 10/01/23 16:00 97.6 F 70 16 110/54 98 10/01/23 14:07 94 L 10/01/23 11:59 97.5 F 71 111/56 94 L 10/01/23 07:43 97.6 F 70 16 121/59 98 Pain Assessment - Last Documented Pain Intensity [Right Shoulder 5 ] Pain Intensity 0 Pain Scale Used 0-10 Pain Scale Intake and Output: Intake & Output 09/29/23 09/30/23 10/01/23 10/02/23 11:59 11:59 11:59 11:59 Intake Total 5225 067 0155 1142 Output Total 800 1025 700 1 Balance 642 -324 1549 1141 Weight 73.9 kg Lab Results: Lab Results-Last 24 Hours 10/01/23 10/01/23 10/01/23 Range/Units 05:45 05:45 15:05 WBC 8.6 (4.0-10.5) x10^3/uL RBC 2.18 L (4.1-5.4) x10^6/uL Hgb 6.5 L* 9.8 L D (12.0-16.0) g/dL Hct 20.7 L 30.1 L (35-47) % MCV 95.0 (78-100) fL MCH 29.8 (26-32) pg MCHC 31.4 L (32-36) g/dL RDW 12.3 (11.5-14.0) % Plt Count 163 (150-450) x10^3/uL MPV 10.1 (7.5-11.0) fL Gran % 60.5 (36.0-66.0) % Immature Gran % (Auto) 0.3 (0.00-0.4) % Nucleat RBC Rel Count 0.0 (0.00-0.1) % Eos # (Auto) 0.25 (0-0.5) x10^3/uL Immature Gran # (Auto) 0.03 (0.00-0.03) x10^3u/L Absolute Lymphs (auto) 1.89 (1.0-4.6) x10^3/uL Absolute Monos (auto) 1.19 (0.0-1.3) x10^3/uL Absolute Nucleated RBC 0.00 (0.00-0.01) x10^3u/L Lymphocytes % 21.9 L (24.0-44.0) % Monocytes % 13.8 H (0.0-12.0) % Eosinophils % 2.9 (0.00-5.0) % Basophils % 0.6 (0.0-0.4) % Absolute Granulocytes 5.22 (1.4-6.9) x10^3/uL Basophils # 0.05 (0-0.4) x10^3/uL Sodium 128 L (137-145) mmol/L Potassium 3.7 (3.5-5.1) mmol/L Chloride 104 (98-107) mmol/L Carbon Dioxide 21 L (22-30) mmol/L Anion Gap 7.0 (5-15) MEQ/L BUN 25 H (7-17) mg/dL Creatinine 1.25 H (0.52-1.04) mg/dL Estimated GFR 42.0 ML/MIN Glucose 115 H (74-106) mg/dL Calcium 7.9 L (8.4-10.2) mg/dL Total Bilirubin 0.60 (0.2-1.3) mg/dL AST 28 (14-36) U/L ALT 9 (0-35) U/L Alkaline Phosphatase 56 (38-126) U/L Serum Total Protein 5.0 L (6.3-8.2) g/dL Albumin 2.3 L (3.5-5.0) g/dL 10/01/23 10/02/23 10/02/23 Range/Units 20:30 03:34 03:34 WBC 8.6 (4.0-10.5) x10^3/uL RBC 2.95 L (4.1-5.4) x10^6/uL Hgb 8.8 L 8.9 L (12.0-16.0) g/dL Hct 26.8 L 27.0 L (35-47) % MCV 91.5 (78-100) fL MCH 30.2 (26-32) pg MCHC 33.0 (32-36) g/dL RDW 13.0 (11.5-14.0) % Plt Count 189 (150-450) x10^3/uL MPV 9.3 (7.5-11.0) fL Gran % 59.2 (36.0-66.0) % Immature Gran % (Auto) 0.5 H (0.00-0.4) % Nucleat RBC Rel Count 0.0 (0.00-0.1) % Eos # (Auto) 0.47 (0-0.5) x10^3/uL Immature Gran # (Auto) 0.04 H (0.00-0.03) x10^3u/L Absolute Lymphs (auto) 1.99 (1.0-4.6) x10^3/uL Absolute Monos (auto) 0.96 (0.0-1.3) x10^3/uL Absolute Nucleated RBC 0.00 (0.00-0.01) x10^3u/L Lymphocytes % 23.1 L (24.0-44.0) % Monocytes % 11.1 (0.0-12.0) % Eosinophils % 5.4 H (0.00-5.0) % Basophils % 0.7 (0.0-0.4) % Absolute Granulocytes 5.11 (1.4-6.9) x10^3/uL Basophils # 0.06 (0-0.4) x10^3/uL Sodium 131 L (137-145) mmol/L Potassium 4.2 (3.5-5.1) mmol/L Chloride 105 (98-107) mmol/L Carbon Dioxide 23 (22-30) mmol/L Anion Gap 7.4 (5-15) MEQ/L BUN 29 H (7-17) mg/dL Creatinine 1.70 H (0.52-1.04) mg/dL Estimated GFR 29.0 ML/MIN Glucose 104 (74-106) mg/dL Calcium 8.5 (8.4-10.2) mg/dL Total Bilirubin 0.80 (0.2-1.3) mg/dL AST 39 H (14-36) U/L ALT 8 (0-35) U/L Alkaline Phosphatase 70 (38-126) U/L Serum Total Protein 5.7 L (6.3-8.2) g/dL Albumin 2.7 L (3.5-5.0) g/dL <ROSSANA BONILLA - Last Filed: 10/02/23 10:09> Vital Signs: Vital Signs - 24 hr Temp Pulse Resp BP Pulse Ox 10/03/23 11:50 98.2 F 75 17 146/60 99 10/03/23 07:20 98 F 75 17 145/65 99 10/03/23 07:13 99 10/03/23 04:00 97.7 F 80 16 132/59 95 10/02/23 23:24 98.2 F 77 16 140/63 94 L Pain Assessment - Last Documented Pain Intensity [Right Shoulder 6 ] Pain Intensity 6 Pain Scale Used 0-10 Pain Scale Intake and Output: Intake & Output 10/01/23 10/02/23 10/03/23 10/04/23 11:59 11:59 11:59 11:59 Intake Total 2249 1382 650 240 Output Total 700 1 Balance 1549 1381 650 240 Lab Results: Lab Results-Last 24 Hours 10/02/23 10/03/23 10/03/23 Range/Units 23:10 04:47 04:47 WBC 7.3 (4.0-10.5) x10^3/uL RBC 2.78 L (4.1-5.4) x10^6/uL Hgb 7.9 L 8.1 L (12.0-16.0) g/dL Hct 24.7 L 25.8 L (35-47) % MCV 92.8 (78-100) fL MCH 29.1 (26-32) pg MCHC 31.4 L (32-36) g/dL RDW 13.2 (11.5-14.0) % Plt Count 222 (150-450) x10^3/uL MPV 9.3 (7.5-11.0) fL Gran % 57.1 (36.0-66.0) % Immature Gran % (Auto) 0.6 H (0.00-0.4) % Nucleat RBC Rel Count 0.0 (0.00-0.1) % Eos # (Auto) 0.39 (0-0.5) x10^3/uL Immature Gran # (Auto) 0.04 H (0.00-0.03) x10^3u/L Absolute Lymphs (auto) 1.53 (1.0-4.6) x10^3/uL Absolute Monos (auto) 1.10 (0.0-1.3) x10^3/uL Absolute Nucleated RBC 0.00 (0.00-0.01) x10^3u/L Lymphocytes % 21.1 L (24.0-44.0) % Monocytes % 15.2 H (0.0-12.0) % Eosinophils % 5.4 H (0.00-5.0) % Basophils % 0.6 (0.0-0.4) % Absolute Granulocytes 4.16 (1.4-6.9) x10^3/uL Basophils # 0.04 (0-0.4) x10^3/uL Sodium 133 L (137-145) mmol/L Potassium 4.0 (3.5-5.1) mmol/L Chloride 106 (98-107) mmol/L Carbon Dioxide 27 (22-30) mmol/L Anion Gap 3.9 L (5-15) MEQ/L BUN 24 H (7-17) mg/dL Creatinine 1.47 H (0.52-1.04) mg/dL Estimated GFR 34.6 ML/MIN Glucose 117 H (74-106) mg/dL Calcium 8.4 (8.4-10.2) mg/dL Total Bilirubin 0.80 (0.2-1.3) mg/dL AST 23 (14-36) U/L ALT 8 (0-35) U/L Alkaline Phosphatase 80 (38-126) U/L Serum Total Protein 5.5 L (6.3-8.2) g/dL Albumin 2.6 L (3.5-5.0) g/dL Radiology Exams: Radiology Procedures Category Date Time Status UPPER EXTREMITY W/O CONTRAST [CT] Stat Exams 10/02/23 12:05 Completed Multi-Disciplinary Progress Notes: Multi-Disciplinary Progress Notes 10/03/23 11:30 (created 10/03/23 14:04) Case Management Note by Patti Fay [facility]- THEY HAVE RECEIVED PRECERT FOR PATIENT. S/W PATIENT- SHE CONTINUES TO BE AGREEABLE TO PLAN TO TRANSITION THERE FOR SHORT TERM REHAB. S/W DAUGHTER DAREK- SHE WILL PROVIDE TRANSPORTATION FOR PATIENT WHEN SHE IS READY. PRIMARY RN NOTIFIED TO CALL HER WHEN READY. Initialized on 10/03/23 14:04 - END OF NOTE <SONYA JUAREZ - Last Filed: 10/03/23 22:21> Assessment/Plan (1) Closed fracture of right proximal humerus Status: Acute Assessment & Plan: -Ortho consulted, plans for surgical intervention 09/29/23 right reverse shoulder replacement. -Pain control -Cardiology has cleared patient 2/3: -ASA resumed per Ortho -percocet 7.5mg q4hprn 2/4: -PODs#2 -surgical bandage noted with shadow drainage, hgb at 6.5, will replace with 2units, contact surgery regarding blood loss s/p surgery -Ortho note reviewed "Instructed patient and passive range of motion of her s houlder and elbow and demonstrated to her Patient may remove dressing postop day 5 and shower then May transfer to [facility] tomorrow May remove cande at [facility] on October 09 Physical therapy with passiveFlexion to 45 degrees, Passive abduction to 45 degrees, passive external rotation to 30 degrees,Rotation to abdomen.Full range of motion of elbow active and passive. 25: -PODS#5, rehab pending, cleared by ortho for discharge, pain controlled -Hold ASA per ortho due to anemia Code(s): S42.201A - UNSP FRACTURE OF UPPER END OF RIGHT HUMERUS, INIT (2) CAD (coronary artery disease) Current Visit: Yes Status: Acute Assessment & Plan: -noted, continue appropriate home medications Code(s): I25.10 - ATHSCL HEART DISEASE OF [place] CORONARY ARTERY W/O ANG PCTRS (3) Contusion of knee, left Current Visit: Yes Status: Acute Assessment & Plan: -x-ray right and left knee with no acute findings Code(s): S80.02XA - CONTUSION OF LEFT KNEE, INITIAL ENCOUNTER (4) Fracture of humeral head, right, closed Current Visit: Yes Status: Acute Assessment & Plan: -see above Code(s): S42.291A - OTH DISP FX OF UPPER END OF RIGHT HUMERUS, INIT FOR CLOS FX (5) Near syncope Current Visit: Yes Status: Acute Assessment & Plan: -secondary for morphine given in ED, no further episodes (6) Chronic renal disease, stage 4, severely decreased glomerular filtration rate (GFR) between 15-29 mL/min/1.73 square meter Current Visit: No Status: Acute Assessment & Plan: -Noted, continue to monitor renal/lytes daily, patient is at her baseline creat -hold triamterene/hctz/lisinopril -avoid NSAIDS, ROCKY, ARBS -creat improving at 1.25, of note she did have CT 09/30/2310/02: -patient is at her baseline creat, patient to follow up with nephrology as OP - Code(s): N18.4 - CHRONIC KIDNEY DISEASE, STAGE 4 (SEVERE) (7) Hypertension Current Visit: Yes Status: Acute Assessment & Plan: -stable, hold lisinopril, triamterene/hctz -Increase amlodipine to 5mg Code(s): I10 - ESSENTIAL (PRIMARY) HYPERTENSION (8) Fall Current Visit: Yes Status: Acute Assessment & Plan: -ground level -PT/ot eval once able 10/01: -Plan for d/c to rehab when accepted/precert pending Code(s): W19.XXXA - UNSPECIFIED FALL, INITIAL ENCOUNTER (9) Mild sprain of right ankle Current Visit: Yes Status: Acute Assessment & Plan: -reviewed ortho notes, "patient may weight-bear as tolerated on the right ankle and work on ROM and strengthening. A cane or hemiwalker for the left upper extremity." Code(s): S93.401A - SPRAIN OF UNSPECIFIED LIGAMENT OF RIGHT ANKLE, INIT ENCNTR (10) Hyponatremia Current Visit: Yes Status: Acute Assessment & Plan: -Hold triamterene/HCTZ 10/01: -improving, dc fluids/ fluid restriction (11)Elevated DDimer -Most likely secondary to trauma -Unable to perform CTA with low GFR -Consider VQ scan (11) UTI -Ucult with gram with enterococcus faecalis, sensitive to levoquin VTE: ASA per ortho PPI: protonix Code(s): S42.201A - UNSP FRACTURE OF UPPER END OF RIGHT HUMERUS, INIT (2) CAD (coronary artery disease) Status: Acute Code(s): I25.10 - ATHSCL HEART DISEASE OF [place] CORONARY ARTERY W/O ANG PCTRS (3) Contusion of knee, left Status: Acute Code(s): S80.02XA - CONTUSION OF LEFT KNEE, INITIAL ENCOUNTER (4) Fracture of humeral head, right, closed Status: Acute Code(s): S42.291A - OTH DISP FX OF UPPER END OF RIGHT HUMERUS, INIT FOR CLOS FX (5) Near syncope Status: Acute (6) Chronic renal disease, stage 4, severely decreased glomerular filtration rate (GFR) between 15-29 mL/min/1.73 square meter Status: Acute Code(s): N18.4 - CHRONIC KIDNEY DISEASE, STAGE 4 (SEVERE) (7) Hypertension Status: Acute Code(s): I10 - ESSENTIAL (PRIMARY) HYPERTENSION (8) Fall Status: Acute Code(s): W19.XXXA - UNSPECIFIED FALL, INITIAL ENCOUNTER (9) Mild sprain of right ankle Status: Acute Code(s): S93.401A - SPRAIN OF UNSPECIFIED LIGAMENT OF RIGHT ANKLE, INIT ENCNTR (10) Hyponatremia Status: Acute Code(s): E87.1 - HYPO-OSMOLALITY AND HYPONATREMIA (11) UTI (urinary tract infection) Status: Acute Code(s): N39.0 - URINARY TRACT INFECTION, SITE NOT SPECIFIED (12) Anemia Status: Acute Code(s): D64.9 - ANEMIA, UNSPECIFIED <ROSSANA BONILLA - Last Filed: 10/02/23 10:09> VIKTOR Encounter - VIKTOR Encounter Attestation VIKTOR Encounter Attestation: "IhavepersonallyseenandFerdinandJEFFRY DANIEL GIANNI on 10/02/2023 andhavediscussed pertinent aspects of their care with Rossana Dumont agree with the history, physical exam (any modifications based on my personal exam will be noted below), assessment, and plan as outlined in original note. Please see immediately below for my summary of findings and additional assessment and plan along with any meaningful corrections/explanations to the Subjective/Objective portions of the VIKTOR note will be noted." My portion of the encounter took place via telemedicine. <SONYA JUAREZ - Last Filed: 10/03/23 22:21>
[2023-10-02] MEDS ORDERED: Sodium Chloride 0.9% 1000 ML 1,000 ML IV SCH (05:45)
[2023-10-02] MEDS: PERCOCET TABLET 5/325MG PO PRN ×4 (06:25→21:56)
[2023-10-02] MEDS: ECOTRIN 81 MG PO SCH (08:42)
[2023-10-02 09:41] LABS: Hematocrit 26.1 % (35-47); Hemoglobin 8.6 g/dL (12.0-16.0)
[2023-10-02] MEDS: NORVASC 5 MG PO SCH (09:54)
[2023-10-02] MEDS: Pepcid 20 MG PO SCH ×2 (09:54→21:57)
[2023-10-02] MEDS: Levaquin 250MG/50ML D5W 250 MG/50 ML BAG IV SCH (09:54)
[2023-10-02] MEDS: Protonix 40MG Tablet PO SCH ×2 (09:54→21:57)
[2023-10-02] MEDS: SYNTHROID 50 MCG PO SCH (09:54)
--- NOTE | 2023-10-02 10:38 | PCM.NOTE ---
ORTHO Progress Note - Progress Note ORTHO Progress Note: Subjective:Right arm pain about the same as yesterday. Patient with sling off now.Has been doing some range of motion. Objective:Alert and oriented x 3 Dressing looks to have minimal drainageMild finger swelling. Moving fingers well. Assessment:Stable from right reverse shoulder arthroplasty Plan:Discussed with hospitalist nurse practitioner that since patient has had a further hematocrit drop after 2 units of transfusion, we will hold aspirin for 3 days and then restart.Okay to discharge todayWith instructions as per yesterday's note
[2023-10-02 12:22] LABS: Hematocrit 27.6 % (35-47)
--- NOTE | 2023-10-02 13:23 | XRAY ---
Indication: Hematoma following shoulder surgery. Multiple contiguous axial images obtained through the right shoulder without contrast. Comparison: September 27, 2023 Interval right shoulder arthroplasty with now extreme beam artifact from bipolar prosthesis, glenoid screws, and orthopedic wires. Prosthesis grossly intact. Upper extremity also demonstrates new anterolateral cutaneous cande with new underlying fluid collection seen anteriorly limited due to beam artifact. Fluid collection demonstrates fluid leveling and measures at least 2.0 x 4.0 x 7.5 cm and either postoperative hematoma versus seroma. Infection/abscess not completely on this noncontrast exam. Visualized right lung again demonstrates dependent atelectasis and a few small mediastinal/right hilar calcified nodes. Impression: 1. Status post right shoulder arthroplasty. Prosthesis and orthopedic hardware produces beam artifact limiting exam. 2. Fluid collection anterior aspect upper extremity as detailed. Finding either postoperative hematoma versus seroma. Infection/abscess not completely excluded in the right clinical setting.
[2023-10-02 14:56] LABS: Hematocrit 26.4 % (35-47); Hemoglobin 8.7 g/dL (12.0-16.0)
[2023-10-02 17:17] LABS: Hematocrit 27.4 % (35-47); Hemoglobin 8.8 g/dL (12.0-16.0)
[2023-10-02] MEDS: ZOCOR 20MG PO SCH (21:57)
[2023-10-02 23:13] LABS: Hematocrit 24.7 % (35-47); Hemoglobin 7.9 g/dL (12.0-16.0)
[2023-10-03] MEDS: PERCOCET TABLET 5/325MG PO PRN ×2 (04:18→11:58)
[2023-10-03 04:59] LABS: Absolute Neutrophil Ct (ANC) 4.16 x10^3/uL (1.4-6.9); BASOPHIL % 0.6 % (0.0-0.4); Basophil (Absolute #) 0.04 x10^3/uL (0-0.4); Eosinophil % 5.4 % (0.00-5.0); Eosinophil (Absolute #) 0.39 x10^3/uL (0-0.5); Hematocrit 25.8 % (35-47); Hemoglobin 8.1 g/dL (12.0-16.0); IMMATURE GRAN # 0.04 x10^3u/L (0.00-0.03); IMMATURE GRAN % 0.6 % (0.00-0.4); Lymphocyte (Absolute #) 1.53 x10^3/uL (1.0-4.6); Lymphocytes % 21.1 % (24.0-44.0); Mean Cell Volume 92.8 fL (78-100); Mean Corpuscular Hemoglobin 29.1 pg (26-32); Mean Corpuscular Hgb Concent. 31.4 g/dL (32-36); Mean Platelet Volume 9.3 fL (7.5-11.0); Monocytes % 15.2 % (0.0-12.0); Neutrophil % 57.1 % (36.0-66.0); Platelet Count 222 x10^3/uL (150-450); Red Blood Count 2.78 x10^6/uL (4.1-5.4); Red Cell Distribution Width 13.2 % (11.5-14.0); White Blood Count 7.3 x10^3/uL (4.0-10.5)
--- NOTE | 2023-10-03 05:06 | PCM.DS ---
Discharge Summary Date of Admission: 09/27/23 20:24 Date of Discharge: 10/03/23 Admitting Physician: GAURAV ARAUJO MD Consults: Consults on Case 09/27/23 22:29 Case Management SDOH DC Needs Assessment ROUTINE Primary Care Provider: NATIVIDAD THURSTON <ROSSANA BONILLA - Last Filed: 10/03/23 12:39> Date of Admission: 09/27/23 20:24 Admitting Physician: GAURAV ARAUJO MD Consults: Consults on Case 09/27/23 22:29 Case Management SDOH DC Needs Assessment ROUTINE Primary Care Provider: NATIVIDAD THURSTON <SONYA JUAREZ - Last Filed: 10/03/23 22:25> Allergies <ROSSANA BONILLA - Last Filed: 10/03/23 12:39> <SONYA JUAREZ - Last Filed: 10/03/23 22:25> Allergies No Known Drug Allergies Allergy (Verified 09/27/23 21:06) Hospital Summary - Hospital Course Hospital Course: Subjective Assessment: Ms. Wan is an 88 year old female admitted 09/27/23 with a proximal humeral fracture. Patient underwent right reverse shoulder arthroplasty with Dr. Weiss 09/29/23. During hospital course medical management included acute on chronic KIMBERLYN, with noted improvement, patient now at baseline. Resolving hyponatremia with 2L fluid restriction. CT of right ext with hematoma vs seroma. Anemia s/p surgical intervention, patient received 1 unit LPRBC with Hgb now stable. Pain control with Percocet. Patient also found to have UTI, culture positive for enterococcus faecalis, treated with levofloxacin. Patient is cleared for discharge from ortho standpoint. Patient placed on ASA 81mg which is on hold for 2 more days. Discharge Note Latest Assessment & Plan (1) Closed fracture of right proximal humerus Current Visit: Yes Status: Acute Assessment & Plan: -Ortho consulted, plans for surgical intervention 09/29/23 right reverse shoulder replacement. -Pain control -Cardiology has cleared patient 3: -ASA resumed per Ortho -percocet 7.5mg q4hprn 10/01: -PODs#2 -surgical bandage noted with shadow drainage, hgb at 6.5, will replace with 2units, contact surgery regarding blood loss s/p surgery -Ortho note reviewed "Instructed patient and passive range of motion of her shoulder and elbow and demonstrated to her Patient may remove dressing postop day 5 and shower then [facility] at [facility] on October 09 Physical therapy with passiveFlexion to 45 degrees, Passive abduction to 45 degrees, passive external rotation to 30 degrees,Rotation to abdomen.Full range of motion of elbow active and passive. 10/02: -PODS#5, rehab pending, cleared by ortho for discharge, pain controlled -Hold ASA per ortho due to anemia Code(s): S42.201A - UNSP FRACTURE OF UPPER END OF RIGHT HUMERUS, INIT (2) CAD (coronary artery disease) Current Visit: Yes Status: Acute Assessment & Plan: -noted, continue appropriate home medications Code(s): I25.10 - ATHSCL HEART DISEASE OF [place] CORONARY ARTERY W/O ANG PCTRS (3) Contusion of knee, left Current Visit: Yes Status: Acute Assessment & Plan: -x-ray right and left knee with no acute findings Code(s): S80.02XA - CONTUSION OF LEFT KNEE, INITIAL ENCOUNTER (4) Fracture of humeral head, right, closed Current Visit: Yes Status: Acute Assessment & Plan: -see above Code(s): S42.291A - OTH DISP FX OF UPPER END OF RIGHT HUMERUS, INIT FOR CLOS FX (5) Near syncope Current Visit: Yes Status: Acute Assessment & Plan: -secondary for morphine given in ED, no further episodes (6) Chronic renal disease, stage 4, severely decreased glomerular filtration rate (GFR) between 15-29 mL/min/1.73 square meter Current Visit: No Status: Acute Assessment & Plan: -Noted, continue to monitor renal/lytes daily, patient is at her baseline creat -hold triamterene/hctz/lisinopril -avoid NSAIDS, ROCKY, ARBS -creat improving at 1.25, of note she did have CT 09/30/2310/02: -patient is at her baseline creat, patient to follow up with nephrology as OP - Code(s): N18.4 - CHRONIC KIDNEY DISEASE, STAGE 4 (SEVERE) (7) Hypertension Current Visit: Yes Status: Acute Assessment & Plan: -stable, hold lisinopril, triamterene/hctz -Increase amlodipine to 5mg Code(s): I10 - ESSENTIAL (PRIMARY) HYPERTENSION (8) Fall Current Visit: Yes Status: Acute Assessment & Plan: -ground level -PT/ot eval once able 10/01: -Plan for d/c to rehab when accepted/precert pending Code(s): W19.XXXA - UNSPECIFIED FALL, INITIAL ENCOUNTER (9) Mild sprain of right ankle Current Visit: Yes Status: Acute Assessment & Plan: -reviewed ortho notes, "patient may weight-bear as tolerated on the right ankle and work on ROM and strengthening. A cane or hemiwalker for the left upper extremity." Code(s): S93.401A - SPRAIN OF UNSPECIFIED LIGAMENT OF RIGHT ANKLE, INIT ENCNTR (10) Hyponatremia Current Visit: Yes Status: Acute Assessment & Plan: -Hold triamterene/HCTZ 10/01: -improving, dc fluids/ fluid restriction (11)Elevated DDimer -Most likely secondary to trauma -Unable to perform CTA with low GFR -Consider VQ scan (11) UTI -Ucult with gram with enterococcus faecalis, sensitive to levoquin VTE: ASA per ortho PPI: protonix I spent 35 minutes [id number] with the patient on the day of discharge performing discharge exam, discussing hospital stay and discharge instructions with patient and caregivers, preparation of discharge records, prescriptions & referral forms and addressing any questions/concerns the patient had as documented above. - Vitals & Intake/Output Vital Signs: Vital Signs Temperature 97.7 F 10/03/23 04:00 Pulse Rate 80 10/03/23 04:00 Respiratory Rate 16 10/03/23 04:00 Blood Pressure 132/59 10/03/23 04:00 O2 Sat by Pulse Oximetry 95 10/03/23 04:00 Intake & Output: Intake & Output 09/30/23 10/01/23 10/02/23 10/03/23 11:59 11:59 11:59 11:59 Intake Total 701 2249 1382 350 Output Total 1025 700 1 Balance -324 1549 1381 350 - Lab Result Diagrams: 10/03/23 04:47 10/03/23 04:47 Lab Results-Last 24 Hrs: Lab Results-Last 24 Hours 10/02/23 10/02/23 10/02/23 Range/Units 02:47 03:34 11:55 WBC 8.6 (4.0-10.5) x10^3/uL RBC 2.95 L (4.1-5.4) x10^6/uL Hgb 8.6 L 8.9 L 9.0 L (12.0-16.0) g/dL Hct 26.1 L 27.0 L 27.6 L (35-47) % MCV 91.5 (78-100) fL MCH 30.2 (26-32) pg MCHC 33.0 (32-36) g/dL RDW 13.0 (11.5-14.0) % Plt Count 189 (150-450) x10^3/uL MPV 9.3 (7.5-11.0) fL Gran % 59.2 (36.0-66.0) % Immature Gran % (Auto) 0.5 H (0.00-0.4) % Nucleat RBC Rel Count 0.0 (0.00-0.1) % Eos # (Auto) 0.47 (0-0.5) x10^3/uL Immature Gran # (Auto) 0.04 H (0.00-0.03) x10^3u/L Absolute Lymphs (auto) 1.99 (1.0-4.6) x10^3/uL Absolute Monos (auto) 0.96 (0.0-1.3) x10^3/uL Absolute Nucleated RBC 0.00 (0.00-0.01) x10^3u/L Lymphocytes % 23.1 L (24.0-44.0) % Monocytes % 11.1 (0.0-12.0) % Eosinophils % 5.4 H (0.00-5.0) % Basophils % 0.7 (0.0-0.4) % Absolute Granulocytes 5.11 (1.4-6.9) x10^3/uL Basophils # 0.06 (0-0.4) x10^3/uL 10/02/23 10/02/23 10/02/23 Range/Units 14:47 17:10 23:10 WBC (4.0-10.5) x10^3/uL RBC (4.1-5.4) x10^6/uL Hgb 8.7 L 8.8 L 7.9 L (12.0-16.0) g/dL Hct 26.4 L 27.4 L 24.7 L (35-47) % MCV (78-100) fL MCH (26-32) pg MCHC (32-36) g/dL RDW (11.5-14.0) % Plt Count (150-450) x10^3/uL MPV (7.5-11.0) fL Gran % (36.0-66.0) % Immature Gran % (Auto) (0.00-0.4) % Nucleat RBC Rel Count (0.00-0.1) % Eos # (Auto) (0-0.5) x10^3/uL Immature Gran # (Auto) (0.00-0.03) x10^3u/L Absolute Lymphs (auto) (1.0-4.6) x10^3/uL Absolute Monos (auto) (0.0-1.3) x10^3/uL Absolute Nucleated RBC (0.00-0.01) x10^3u/L Lymphocytes % (24.0-44.0) % Monocytes % (0.0-12.0) % Eosinophils % (0.00-5.0) % Basophils % (0.0-0.4) % Absolute Granulocytes (1.4-6.9) x10^3/uL Basophils # (0-0.4) x10^3/uL /02/18 Range/Units 04:47 WBC 7.3 (4.0-10.5) x10^3/uL RBC 2.78 L (4.1-5.4) x10^6/uL Hgb 8.1 L (12.0-16.0) g/dL Hct 25.8 L (35-47) % MCV 92.8 (78-100) fL MCH 29.1 (26-32) pg MCHC 31.4 L (32-36) g/dL RDW 13.2 (11.5-14.0) % Plt Count 222 (150-450) x10^3/uL MPV 9.3 (7.5-11.0) fL Gran % 57.1 (36.0-66.0) % Immature Gran % (Auto) 0.6 H (0.00-0.4) % Nucleat RBC Rel Count 0.0 (0.00-0.1) % Eos # (Auto) 0.39 (0-0.5) x10^3/uL Immature Gran # (Auto) 0.04 H (0.00-0.03) x10^3u/L Absolute Lymphs (auto) 1.53 (1.0-4.6) x10^3/uL Absolute Monos (auto) 1.10 (0.0-1.3) x10^3/uL Absolute Nucleated RBC 0.00 (0.00-0.01) x10^3u/L Lymphocytes % 21.1 L (24.0-44.0) % Monocytes % 15.2 H (0.0-12.0) % Eosinophils % 5.4 H (0.00-5.0) % Basophils % 0.6 (0.0-0.4) % Absolute Granulocytes 4.16 (1.4-6.9) x10^3/uL Basophils # 0.04 (0-0.4) x10^3/uL Micro Results-Entire Visit: Microbiology 09/27/23 18:32 Urine Culture - Final Catherized Enterococcus Faecalis - Radiology Exams Ordered Rad Exams-Entire Visit: Radiology Procedures Category Date Time Status UPPER EXTREMITY W/O CONTRAST [CT] Stat Exams 10/02/23 12:05 Completed - Procedures and Test Procedures and Tests throughout Hospitalization: Therapy Orders & Screens 09/27/23 21:05 OT Screen per Nursing Assess ONCE Comment: Protocol Order Physician Instructions: Greater than 3 points order OT Admission Screening Reason For Exam: Triggered on Admission Diagnosis: right humeral head fx Open Wound/Cellutlitis/Pressure Ulcers: No Acute Fx/ORIF/Change in wt bearing status: Yes Severe MUSCULOSKELETAL pain: No ADL Dysfunction: Yes Acute CVA w/Hemiparesis/Hemiplegia: No Decreased Functional Mobility/Strength: Yes Sprain/Strain: No Acute Post-op Mobility Dysfunction: No Total Points: 9 PT Screen per Nursing Assess ONCE Comment: Protocol Order Physician Instructions: Greater than 3 points order PT Admission Screenin Reason For Exam: Triggered on Admission Diagnosis: right humeral head fx Open Wound/Cellutlitis/Pressure Ulcers: No Acute Fx/ORIF/Change in wt bearing status: Yes Severe MUSCULOSKELETAL pain: No ADL Dysfunction: Yes Acute CVA w/Hemiparesis/Hemiplegia: No Decreased Functional Mobility/Strength: Yes Sprain/Strain: No Acute Post-op Mobility Dysfunction: No Total Points: 9 09/28/23 08:59 PT Eval & Treat (MD Order) ONCE Reason for Eval:: Right proximal ramus fracture,Do pendulum exercises and elbow range of motion.Bilateral knee contusions and right ankle sprain,Range of motion and strengthening Diagnosis: right humeral head fx 09/29/23 14:40 Incentive Spirometry TID Comment: Diagnosis: right humeral head fx 09/29/23 15:24 Oxygen Nasal Cannula 2 lpm Comment: Diagnosis: right humeral head fx 10/01/23 10:48 PT Clarification Order ROUTINE Comment: Physician Instructions: Reason For Exam: PT Clarification: Passive flexion to 45 degrees, passive abduction to 45 degrees, passive external Tatian to 30 degrees, Internal rotation to abdomen.Active and passive full range of motion of elbow <ROSSANA BONILLA - Last Filed: 10/03/23 12:39> - Vitals & Intake/Output Vital Signs: Vital Signs Temperature 98.2 F 10/03/23 11:50 Pulse Rate 75 10/03/23 11:50 Respiratory Rate 17 10/03/23 11:50 Blood Pressure 146/60 10/03/23 11:50 O2 Sat by Pulse Oximetry 99 10/03/23 11:50 Intake & Output: Intake & Output 10/01/23 10/02/23 10/03/23 10/04/23 11:59 11:59 11:59 11:59 Intake Total 2249 1382 650 240 Output Total 700 1 Balance 1549 1381 650 240 - Lab Result Diagrams: 10/03/23 04:47 10/03/23 04:47 Lab Results-Last 24 Hrs: Lab Results-Last 24 Hours 10/02/23 10/03/23 10/03/23 Range/Units 23:10 04:47 04:47 WBC 7.3 (4.0-10.5) x10^3/uL RBC 2.78 L (4.1-5.4) x10^6/uL Hgb 7.9 L 8.1 L (12.0-16.0) g/dL Hct 24.7 L 25.8 L (35-47) % MCV 92.8 (78-100) fL MCH 29.1 (26-32) pg MCHC 31.4 L (32-36) g/dL RDW 13.2 (11.5-14.0) % Plt Count 222 (150-450) x10^3/uL MPV 9.3 (7.5-11.0) fL Gran % 57.1 (36.0-66.0) % Immature Gran % (Auto) 0.6 H (0.00-0.4) % Nucleat RBC Rel Count 0.0 (0.00-0.1) % Eos # (Auto) 0.39 (0-0.5) x10^3/uL Immature Gran # (Auto) 0.04 H (0.00-0.03) x10^3u/L Absolute Lymphs (auto) 1.53 (1.0-4.6) x10^3/uL Absolute Monos (auto) 1.10 (0.0-1.3) x10^3/uL Absolute Nucleated RBC 0.00 (0.00-0.01) x10^3u/L Lymphocytes % 21.1 L (24.0-44.0) % Monocytes % 15.2 H (0.0-12.0) % Eosinophils % 5.4 H (0.00-5.0) % Basophils % 0.6 (0.0-0.4) % Absolute Granulocytes 4.16 (1.4-6.9) x10^3/uL Basophils # 0.04 (0-0.4) x10^3/uL Sodium 133 L (137-145) mmol/L Potassium 4.0 (3.5-5.1) mmol/L Chloride 106 (98-107) mmol/L Carbon Dioxide 27 (22-30) mmol/L Anion Gap 3.9 L (5-15) MEQ/L BUN 24 H (7-17) mg/dL Creatinine 1.47 H (0.52-1.04) mg/dL Estimated GFR 34.6 ML/MIN Glucose 117 H (74-106) mg/dL Calcium 8.4 (8.4-10.2) mg/dL Total Bilirubin 0.80 (0.2-1.3) mg/dL AST 23 (14-36) U/L ALT 8 (0-35) U/L Alkaline Phosphatase 80 (38-126) U/L Serum Total Protein 5.5 L (6.3-8.2) g/dL Albumin 2.6 L (3.5-5.0) g/dL Micro Results-Entire Visit: Microbiology 09/27/23 18:32 Urine Culture - Final Catherized Enterococcus Faecalis - Radiology Exams Ordered Rad Exams-Entire Visit: Radiology Procedures Category Date Time Status UPPER EXTREMITY W/O CONTRAST [CT] Stat Exams 10/02/23 12:05 Completed - Procedures and Test Procedures and Tests throughout Hospitalization: Therapy Orders & Screens 09/27/23 21:05 OT Screen per Nursing Assess ONCE Comment: Protocol Order Physician Instructions: Greater than 3 points order OT Admission Screening Reason For Exam: Triggered on Admission Diagnosis: right humeral head fx Open Wound/Cellutlitis/Pressure Ulcers: No Acute Fx/ORIF/Change in wt bearing status: Yes Severe MUSCULOSKELETAL pain: No ADL Dysfunction: Yes Acute CVA w/Hemiparesis/Hemiplegia: No Decreased Functional Mobility/Strength: Yes Sprain/Strain: No Acute Post-op Mobility Dysfunction: No Total Points: 9 PT Screen per Nursing Assess ONCE Comment: Protocol Order Physician Instructions: Greater than 3 points order PT Admission Screenin Reason For Exam: Triggered on Admission Diagnosis: right humeral head fx Open Wound/Cellutlitis/Pressure Ulcers: No Acute Fx/ORIF/Change in wt bearing status: Yes Severe MUSCULOSKELETAL pain: No ADL Dysfunction: Yes Acute CVA w/Hemiparesis/Hemiplegia: No Decreased Functional Mobility/Strength: Yes Sprain/Strain: No Acute Post-op Mobility Dysfunction: No Total Points: 9 09/28/23 08:59 PT Eval & Treat ( Order) ONCE Reason for Eval:: Right proximal ramus fracture,Do pendulum exercises and elbow range of motion.Bilateral knee contusions and right ankle sprain,Range of motion and strengthening Diagnosis: right humeral head fx 09/29/23 14:40 Incentive Spirometry TID Comment: Diagnosis: right humeral head fx 09/29/23 15:24 Oxygen Nasal Cannula 2 lpm Comment: Diagnosis: right humeral head fx 10/01/23 10:48 PT Clarification Order ROUTINE Comment: Physician Instructions: Reason For Exam: PT Clarification: Passive flexion to 45 degrees, passive abduction to 45 degrees, passive external Tatian to 30 degrees, Internal rotation to abdomen.Active and passive full range of motion of elbow <SONYA JUAREZ - Last Filed: 10/03/23 22:25> Discharge Exam General Appearance: no apparent distress Neurologic Exam: alert, oriented x 3, cooperative Eye Exam: PERRL Ears, Nose, Throat Exam: normal ENT inspection Neck Exam: normal inspection Respiratory Exam: normal breath sounds, lungs clear Cardiovascular Exam: regular rate/rhythm, normal heart sounds Gastrointestinal/Abdomen Exam: soft, normal bowel sounds Pelvic Exam: deferred Rectal Exam: deferred Back Exam: normal inspection Extremity Exam: limited range of motion (RUE), swelling (RUE), other (Right shoulder with surgical dressing/shadow drainage marked) Skin Exam: normal color Wound Assessment: Skin/Wound Assessment Wound/Incision Assessment Start: 09/28/23 20:03 Text: Status: Active Freq: Q6H Protocol: Document 10/03/23 02:00 MP (Rec: 10/03/23 02:40 MP [id number]) Wound/Incision Assessment Right Shoulder Wound Assessment Shift Assessment Wound Type Incision Wound Stage Non Pressure Wound Dressing Status Drainage circled Drainage Amount None Drainage Odor None/Absent Primary Dressing Aquacel Dressing Comment Post-surgical R. Reverse Total Shoulder. Aquacel dressing intact shadowing outlined, and edema noted. Wound Photo Photo Taken No <ROSSANA BONILLA - Last Filed: 10/03/23 12:39> Final Diagnosis/Problem List - Final Discharge Diagnosis/Problem (1) Closed fracture of right proximal humerus Status: Acute Code(s): S42.201A - UNSP FRACTURE OF UPPER END OF RIGHT HUMERUS, INIT (2) CAD (coronary artery disease) Status: Acute Code(s): I25.10 - ATHSCL HEART DISEASE OF [place] CORONARY ARTERY W/O ANG PCTRS (3) Contusion of knee, left Status: Acute Code(s): S80.02XA - CONTUSION OF LEFT KNEE, INITIAL ENCOUNTER (4) Fracture of humeral head, right, closed Status: Acute Code(s): S42.291A - OTH DISP FX OF UPPER END OF RIGHT HUMERUS, INIT FOR CLOS FX (5) Near syncope Status: Acute (6) Chronic renal disease, stage 4, severely decreased glomerular filtration rate (GFR) between 15-29 mL/min/1.73 square meter Status: Acute Code(s): N18.4 - CHRONIC KIDNEY DISEASE, STAGE 4 (SEVERE) (7) Hypertension Status: Acute Code(s): I10 - ESSENTIAL (PRIMARY) HYPERTENSION (8) Fall Status: Acute Code(s): W19.XXXA - UNSPECIFIED FALL, INITIAL ENCOUNTER (9) Mild sprain of right ankle Status: Acute Code(s): S93.401A - SPRAIN OF UNSPECIFIED LIGAMENT OF RIGHT ANKLE, INIT ENCNTR (10) Hyponatremia Status: Acute Code(s): E87.1 - HYPO-OSMOLALITY AND HYPONATREMIA (11) UTI (urinary tract infection) Status: Acute Code(s): N39.0 - URINARY TRACT INFECTION, SITE NOT SPECIFIED (12) Anemia Status: Acute Code(s): D64.9 - ANEMIA, UNSPECIFIED <ROSSANA BONILLA - Last Filed: 10/03/23 12:39> <ROSSANA BONILLA - Last Filed: 10/03/23 12:39> <SONYA JUAREZ - Last Filed: 10/03/23 22:25> - Discharge Disposition: DC TO ANY "OTHER" JAIL Condition: Stable Prescriptions: New Celecoxib 100 mg [celeBREX 100 MG] 200 mg PO DAILY PRN PRN cap levoFLOXacin [Levofloxacin] 500 mg PO DAILY 3 Days #3 tablet Acetaminophen 500 mg [Tylenol Extra Strength 500 mg] 1,000 mg PO Q6H/PRN PRN tablet PRN Reason: PAIN OR FEVER Oxycodone HCl/Acetaminophen [Percocet 7.5-325 mg Tablet] 1 each PO Q4H PRN PRN 7 Days #30 tablet MDD 6 PRN Reason: Pain Continue Simvastatin 40 mg [Zocor 40 mg] 40 mg PO HS Aspirin 81 mg PO DAILY Nitroglycerin 1 ea PO Q5MIN PRN MR X 3 PRN PRN Reason: Chest Pain lisinopriL [Zestril] 1 tab PO DAILY Omeprazole 1 cap PO BID Levothyroxine Sodium 1 tab PO DAILY Triamterene/Hydrochlorothiazid [Maxzide 37.5 mg-25 mg Tablet] 1 tab PO DAILY Amlodipine Besylate [Norvasc] 1 tab PO DAILY Hydroxyzine HCl 25 mg [Atarax 25 mg] 1 tab PO QID PRN PRN Reason: Dizziness Additional Instructions: JAIL ORDERS: ADMIT TO RESIDENTIAL FACILITY RENAL DIET ASSISTIVE DEVICES: LEFT CANE SEE ATTACHED MED LIST ORTHO ORDERS- -ASPIRIN ON HOLD- RESUME ON 10/04/23 -DRESSING CAN COME OFF 5 DAYS POST OP (10/04/23) -PATIENT MAY SHOWER 10/04/23 AFTER DRESSING IS OFF -REMOVE SHAILA 10/09/23 -SLING MAY BE OFF IN BED BUT MUST BE ON IF IN THE CHAIR OR STANDING -PHYSICAL THERAPY- WITH PASSIVE FLEXION TO 45 DEGREES, PASSIVE ABDUCTION TO 45 DEGREES, PASSIVE EXTERNAL ROTATION TO 30 DEGREES, ROTATION TO ABDOMEN. FULL RANGE OF MOTION OF ELBOW ACTIVE AND PASSIVE Follow up with: JOSE E PERAZA MD [ACTIVE STAFF] - 10/19/23 2:30 pm (FOLLOW UP WITH DR PERAZA/ORTHO CLINIC) NATIVIDAD THURSTON [Primary Care Provider] - VIKTOR Encounter - VIKTOR Encounter Attestation VIKTOR Encounter Attestation: "IhJEFFRY Oliver andhavediscussed pertinent aspects of their care with Rossana Bonilla and agree with the history, physical exam (any modifications based on my personal exam will be noted below), assessment, and plan as outlined in original note. Please see immediately below for my summary of findings and additional assessment and plan along with any meaningful corrections/explanations to the Subjective/Objective portions of the VIKTOR note will be noted." My portion of the encounter took place via telemedicine. <SONYA JUAREZ - Last Filed: 10/03/23 22:25>
[2023-10-03 05:11] LABS: ALBUMIN 2.6 g/dL (3.5-5.0); ANION GAP 3.9 MEQ/L (5-15); BILIRUBIN,TOTAL 0.8 mg/dL (0.2-1.3); Calcium 8.4 mg/dL (8.4-10.2); Creatinine 1 1.47 mg/dL (0.52-1.04); EST GLOMERULAR FILTRATION RATE 34.6 ML/MIN; Total Protein 5.5 g/dL (6.3-8.2)
[2023-10-03 07:14] VITALS: O2SAT 99
[2023-10-03 07:21] VITALS: PULSE 75; RESP 17
[2023-10-03] MEDS: Docusate Sodium 100 MG PO PRN (08:47)
[2023-10-03] MEDS: NORVASC 5 MG PO SCH (08:48)
[2023-10-03] MEDS: SYNTHROID 50 MCG PO SCH (08:48)
[2023-10-03] MEDS: Protonix 40MG Tablet PO SCH (08:49)
[2023-10-03] MEDS: Levaquin 250MG/50ML D5W 250 MG/50 ML BAG IV SCH (08:49)
[2023-10-03] MEDS: ATARAX 25 MG PO PRN (08:49)
[2023-10-03] MEDS: Pepcid 20 MG PO SCH (08:49)
[2023-10-03] MEDS: TYLENOL EXTRA STRENGTH 500 MG PO PRN (08:57)
--- NOTE | 2023-10-03 09:09 | PCM.NOTE ---
ORTHO Progress Note - Progress Note ORTHO Progress Note: Subjective:Seen postop day 4 from right reverse shoulder replacement Objective:Alert and orient x 3, dressing with mild drainage. Moderate bruising and swelling of the arm. Assessment: Stable awaiting discharge approval to rehab facility Plan: Per progress note 2 days ago
[2023-10-03] MEDS ORDERED: CITROMA 296 ML PO ONE (10:57)
[2023-10-03 11:51] VITALS: BP 146/60; TEMP 98.2
== END 2023-10-03 13:44 ==
LOC: ED 14:40 → MED SURG 20:24 → ICU 09-29 13:40 → MED SURG 09-30 12:20
PROVIDERS: ADMIT Internal Medicine; ATTEND Internal Medicine
DX: S42.201A Unspecified fracture of upper end of right humerus, initial encounter for closed fracture (principal); I25.10 Atherosclerotic heart disease of native coronary artery without angina pectoris; S80.02XA Contusion of left knee, initial encounter; S42.291A Other displaced fracture of upper end of right humerus, initial encounter for closed fracture; R55 Syncope and collapse; I12.9 Hypertensive chronic kidney disease with stage 1 through stage 4 chronic kidney disease, or unspecified chronic kidney disease; N18.4 Chronic kidney disease, stage 4 (severe); W19.XXXA Unspecified fall, initial encounter; S93.401A Sprain of unspecified ligament of right ankle, initial encounter; E87.1 Hypo-osmolality and hyponatremia; N39.0 Urinary tract infection, site not specified; D64.9 Anemia, unspecified; E78.5 Hyperlipidemia, unspecified; Z79.899 Other long term (current) drug therapy; Z20.828 Contact with and (suspected) exposure to other viral communicable diseases
CPT/HCPCS: 23472; 36000; 36415; 70450; 73000; 73030; 73060; 73200; 73562; 73610; 80048; 80053; 81001; 84484; 85014; 85018; 85025; 85379; 85610; 86850; 86900; 86901; 86922; 87077; 87086; 87186; 93005; 94760; 96374; 96375; 96376; 97110; 97161; 97530; 99284; P9016; Q3014; 93268; 99222; J0360; J0690; J1100; J1644; J1956; J2060; J2250; J2270; J2371; J2405; J3010; A9270-GY; G0378